=== PATIENT | female | born 1945 | race Caucasian/White ===

== ENCOUNTER 2018-05-28 14:00 | Outpatient (CLI) | payer MEDICARE, OTHER, SELFPAY ==
[2018-05-28 15:03] LABS: C-Reactive Protein 0.84 mg/dL (0.0-0.3)
[2018-05-28 15:04] LABS: ESR 22 MM/HR (0-30)
== END 2018-05-28 14:01 ==
PROVIDERS: PCP Family Medicine; Visit Provider Internal Medicine
DX: M35.3 Polymyalgia rheumatica (principal)
CPT/HCPCS: 36415; 85652; 86140

== ENCOUNTER → 2018-07-28 09:14 | Outpatient (BNVA) | payer MEDICARE, OTHER, SELFPAY | PROVIDERS: PCP Student in an Organized Health Care Education/Training Program; Referring Provider Student in an Organized Health Care Education/Training Program; Visit Provider Student in an Organized Health Care Education/Training Program | DX: M75.82 Other shoulder lesions, left shoulder (principal) | CPT/HCPCS: 99213 ==

== ENCOUNTER 2018-11-19 09:58 | Outpatient (CLI) | payer MEDICARE, OTHER, SELFPAY ==
[2018-11-19 10:36] LABS: Abs Immature Grans 0.01 k/cumm (0.0-0.09); Absolute Basophil Count 0.04 k/cumm (0.0-0.2); Absolute Lymphocyte Count 1.72 k/cumm (1.2-3.4); Absolute Monocyte Count 0.49 k/cumm (0.11-0.7); Absolute Neutrophil Count 3.78 k/cumm (1.2-6.7); Basophils % 0.6; Eosinophils % 3.2; HCT 38.3 % (36.0-46.0); HGB 12.5 g/dL (12.0-15.5); Immature Grans % 0.2; Lymphocytes % 27.6; Mean Corp. HGB Concentration 32.6 g/dL (32.0-36.0); Mean Corpuscular Hemoglobin 30.6 pg (27.0-33.0); Mean Corpuscular Volume 93.9 fL (80-95); Mean Platelet Volume 10.8 fL (8.0-11.0); Monocytes % 7.9; Neutrophils % 60.5; Platelet Count 194 x1000/uL (130-400); RBC 4.08 m/cumm (4.00-5.20); RBC Distribution Width 13.2 % (11.7-14.6); White Blood Cell Count 6.24 k/cumm (4.4-10.8)
[2018-11-19 11:05] LABS: ALT 22 U/L (12-78); AST 14 U/L (15-37); Albumin 3.5 g/dL (3.4-5.0); Alkaline Phosphatase 66 U/L (46-116); Anion Gap 8.9 mmol/L (3-11); BUN 18 mg/dL (7-18); Bilirubin, Total 0.4 mg/dL (0.2-1.0); CO2 27.1 mmol/L (21.0-32.0); CREATININE 0.96 mg/dL (0.55-1.02); Calcium 8.8 mg/dL (8.5-10.1); Chloride 106 mmol/L (98-107); Cholesterol 192 mg/dL (50-200); Estimated GFR 57.13 (mL/min/1.73m2); Glucose 92 mg/dL (70-100); HDL Cholesterol 62 mg/dL (40-60); LDL CHOLESTEROL 106 mg/dL (<100); Magnesium 1.8 mg/dL (1.8-2.4); Potassium 4.4 mmol/L (3.5-5.1); Sodium 142 mmol/L (136-145); Total Protein 6.4 g/dL (6.4-8.2); Triglyceride 160 mg/dL (30-150)
[2018-11-22 08:30] LABS: Vitamin D 25 Total 35.8 ng/ml (30-100)
== END 2018-11-19 10:18 ==
PROVIDERS: PCP Student in an Organized Health Care Education/Training Program; Visit Provider Student in an Organized Health Care Education/Training Program
DX: I48.0 Paroxysmal atrial fibrillation (principal); R89.9 Unspecified abnormal finding in specimens from other organs, systems and tissues; R03.0 Elevated blood-pressure reading, without diagnosis of hypertension; M89.8X9 Other specified disorders of bone, unspecified site; Z79.01 Long term (current) use of anticoagulants; E78.89 Other lipoprotein metabolism disorders; Z13.6 Encounter for screening for cardiovascular disorders
CPT/HCPCS: 36415; 80053; 80061; 82306; 83721; 85027; 83735; 85025

== ENCOUNTER 2018-12-01 02:06 | Outpatient (CLI) | payer MEDICARE, OTHER, SELFPAY ==
--- NOTE | 2018-12-22 18:45 | ZIOP_ITS ---
ZIO PATCH REPORT DATE OF READING: December 22, 2018 STUDY INDICATION: Paroxysmal atrial fibrillation. REQUESTING PROVIDER: Roberta Jansen D.O. FINDINGS: The patient was monitored for 14 days. The predominant underlying rhythm was sinus rhythm. Average heart rate in sinus rhythm 69 beats per minutes, range 41-143 beats per minute. There was rare ectopy, less than 1% PACs and less than 1% PVCs. There were 31 episodes of supraventricular tachycardia, average heart rate 122 beats per minutes, range 77-169 beats per minute. The longest episode lasted 14 beats with an average heart rate of 110 beats per minute. There was nocturnal sinus bradycardia. There was no higher degree heart block. There were no pauses greater than 3 seconds. There were no patient events. FINAL INTERPRETATION: Minor atrial arrhythmias, asymptomatic.
== END 2018-12-01 02:26 ==
PROVIDERS: PCP Student in an Organized Health Care Education/Training Program; Visit Provider Student in an Organized Health Care Education/Training Program
DX: I48.0 Paroxysmal atrial fibrillation (principal); I47.1 Supraventricular tachycardia
CPT/HCPCS: 93225

== ENCOUNTER 2019-06-15 00:53 | Outpatient (CLI) | payer MEDICARE, OTHER, SELFPAY ==
--- NOTE | 2019-06-15 09:10 | DI.RAD_ITS ---
SYMPTOM/DIAGNOSIS: RT FOOT SENSATION OF FOREIGN BODY BETWEEN TOES, FOOT DEFORMITY, M21.961, LT FOOT SWELLING LEFT FOOT: Three views were obtained. There are mild degenerative changes of the mid foot joints and IP joints. No other significant bony or soft tissue abnormality is seen. RIGHT FOOT: Three views were obtained. There are moderate degenerative changes of the first MTP joint and mild degenerative changes of the IP joints and joints of the mid foot. There is an osteophyte at the site of attachment of the plantar fascia on the calcaneus. No other significant bony abnormality is seen.
== END 2019-06-15 01:13 ==
PROVIDERS: PCP Student in an Organized Health Care Education/Training Program; Visit Provider Student in an Organized Health Care Education/Training Program
DX: M21.961 Unspecified acquired deformity of right lower leg (principal); M21.962 Unspecified acquired deformity of left lower leg; M19.072 Primary osteoarthritis, left ankle and foot; M19.071 Primary osteoarthritis, right ankle and foot; M25.771 Osteophyte, right ankle; M79.89 Other specified soft tissue disorders
CPT/HCPCS: 73630

== ENCOUNTER 2019-09-21 09:25 | Outpatient (CLI) | payer MEDICARE, OTHER, SELFPAY ==
[2019-09-21 10:30] LABS: Abs Immature Grans 0.02 k/cumm (0.0-0.09); Absolute Basophil Count 0.04 k/cumm (0.0-0.2); Absolute Eosinophil Count 0.22 k/cumm (0.0-0.7); Absolute Lymphocyte Count 1.82 k/cumm (1.2-3.4); Absolute Monocyte Count 0.56 k/cumm (0.11-0.7); Absolute Neutrophil Count 3.83 k/cumm (1.2-6.7); Basophils % 0.6; Eosinophils % 3.4; HCT 39.5 % (36.0-46.0); HGB 12.8 g/dL (12.0-15.5); Immature Grans % 0.3; Mean Corp. HGB Concentration 32.4 g/dL (32.0-36.0); Mean Corpuscular Hemoglobin 30.4 pg (27.0-33.0); Mean Corpuscular Volume 93.8 fL (80-95); Mean Platelet Volume 10.8 fL (8.0-11.0); Monocytes % 8.6; Neutrophils % 59.1; Platelet Count 208 x1000/uL (130-400); RBC 4.21 m/cumm (4.00-5.20); RBC Distribution Width 13.2 % (11.7-14.6); White Blood Cell Count 6.49 k/cumm (4.4-10.8)
[2019-09-21 10:32] LABS: Bilirubin Negative (Negative); Blood Negative (Negative); Clarity Clear (Clear); Glucose Negative (Negative); Ketones Negative (Negative); Leukocyte Esterase Negative (Negative); Nitrite Negative (Negative); Specific Gravity 1.015 (1.005-1.025); Urobilinogen 0.2 EU/dL (Up TO 0.2); pH 5.5 (5-8)
[2019-09-21 11:01] LABS: ALT 22 U/L (14-59); AST 16 U/L (15-37); Albumin 3.7 g/dL (3.4-5.0); Alkaline Phosphatase 57 U/L (46-116); Anion Gap 6.3 mmol/L (3-11); BUN 21 mg/dL (7-18); Bilirubin, Total 0.4 mg/dL (0.2-1.0); C-Reactive Protein 0.54 mg/dL (0.0-0.3); CO2 30.7 mmol/L (21.0-32.0); CREATININE 1.09 mg/dL (0.55-1.02); Chloride 106 mmol/L (98-107); Glucose 98 mg/dL (74-106); Potassium 5.1 mmol/L (3.5-5.1); Sodium 143 mmol/L (136-145); Total Protein 6.4 g/dL (6.4-8.2)
== END 2019-09-21 09:45 ==
PROVIDERS: PCP Student in an Organized Health Care Education/Training Program; Visit Provider Internal Medicine
DX: M35.9 Systemic involvement of connective tissue, unspecified (principal); R82.79 Other abnormal findings on microbiological examination of urine
CPT/HCPCS: 36415; 80053; 81003; 85025; 86140; 87086

== ENCOUNTER 2019-10-17 10:07 | Outpatient (CLI) | payer MEDICARE, OTHER, SELFPAY ==
[2019-10-17 11:35] LABS: TSH (W/Ref FT4) 1.55 uIU/mL (0.36-3.74)
== END 2019-10-17 10:27 ==
PROVIDERS: PCP Student in an Organized Health Care Education/Training Program; Visit Provider Student in an Organized Health Care Education/Training Program
DX: F32.9 Major depressive disorder, single episode, unspecified (principal); R23.2 Flushing; T50.905A Adverse effect of unspecified drugs, medicaments and biological substances, initial encounter
CPT/HCPCS: 36415; 84443

== ENCOUNTER 2020-05-28 01:16 | Outpatient (CLI) | payer MEDICARE, OTHER, SELFPAY ==
--- NOTE | 2020-05-28 06:53 | DI.MAMMO_ITS ---
EXAM: MAMMO SCREENING CLINICAL HISTORY: screening,Z12.39 TECHNIQUE: Mammograms were interpreted according to the usual protocol including computer analysis w [employer] CAD system, tomosynthesis and C-view imaging. COMPARISON: FINDINGS: Breasts are of moderate density with fairly symmetrical distribution of tissue. No dominant mass or clumped microcalcification is identified in either breast. The current examination is compared with previous examinations including November 2016 and there is question of increased prominence of an are a of asymmetric density with questionable architectural distortion in the upper outer quadrant of the left breast on CC and MLO projections. Additional mammographic views of this area are requested to include CC and MLO spot compression views. IMPRESSION: Additional mammographic views of the left breast requested as described above. Breast ultrasound sh ould be obtained as well. Category: BI-RADS Cat 0 - Assessment Incomplete: Need additional imaging evaluation Breast Density - Category B - Scattered areas of fibroglandular density
== END 2020-05-28 01:36 ==
PROVIDERS: PCP Student in an Organized Health Care Education/Training Program; Visit Provider Student in an Organized Health Care Education/Training Program
DX: Z12.31 Encounter for screening mammogram for malignant neoplasm of breast (principal); R92.2 Inconclusive mammogram; R92.8 Other abnormal and inconclusive findings on diagnostic imaging of breast
CPT/HCPCS: 77063; 77067

== ENCOUNTER 2020-05-31 01:17 | Outpatient (CLI) | payer MEDICARE, OTHER, SELFPAY ==
--- NOTE | 2020-05-31 10:35 | DI.MAMMO_ITS ---
EXAM: MG MAMMO SCREEN CALL BACK UNI CLINICAL HISTORY: F/U MAMMO, ASYMMETRIC DENSITY LT BREAST,? ARCHITECTURAL DISTORTION TECHNIQUE: Mammograms were interpreted according to the usual protocol including computer analysis w ith CAD system, tomosynthesis and C-view imaging. COMPARISON: FINDINGS: Additional mammographic views of the left breast and left breast ultrasound were obtained to evaluate questionable area of asymmetric density with possible architectural distortion the upper outer quadr ant of the left breast seen on recent mammogram. Additional mammographic views fail to show a discre te mass or convincing architectural distortion. Breast ultrasound shows no evidence of a mass or cys t in this area. IMPRESSION: No specific evidence of malignancy at this time. Follow-up unilateral left breast mammogram requeste d in 6 months. BI-RADS Cat 3 - 6 month - Probably Benign Finding: Recommend follow-up mammography in 6 months: Breast Density - Category C - Heterogeneously dense:
== END 2020-05-31 01:37 ==
PROVIDERS: PCP Student in an Organized Health Care Education/Training Program; Visit Provider Student in an Organized Health Care Education/Training Program
DX: Z12.31 Encounter for screening mammogram for malignant neoplasm of breast (principal); R92.8 Other abnormal and inconclusive findings on diagnostic imaging of breast; R92.2 Inconclusive mammogram
CPT/HCPCS: 76642; 77063; 77067

== ENCOUNTER 2020-12-13 01:01 | Outpatient (CLI) | payer MEDICARE, OTHER, SELFPAY ==
--- NOTE | 2020-12-13 08:00 | DI.MAMMO_ITS ---
EXAM: MG MAMMO DIAGNOSTIC UNI CLINICAL HISTORY: follow up left breast abn (11/2020),6 MO F/U,R92.8. TECHNIQUE: Unilateral left breast CC and MLO mammographic images were obtained with 3D Tomosynthesis technique and utilizing computer aided detection (CAD). COMPARISON: Prior mammograms dating back to 2011, the most recent being May 2020. Ultrasound of May 2020 was also reviewed FINDINGS: Previously described asymmetric tissue in the upper-outer quadrant of the left breast remains unchang ed. Also no malignant-appearing microcalcification groups in the left breast. IMPRESSION: Stable benign appearing left breast findings. No radiographic evidence of malignancy in left breast. Appropriate follow-up is to keep this patient yearly mammogram schedule, this implying the next [facility] mammogram would be in May 2021, with earlier imaging if a self detected breast change is note d.. BI-RADS Category 2 - Benign Findings Breast Density - Category B - Scattered areas of fibroglandular density Breast density Category C or D implies that the patient has dense breast tissue. Dense breast tissue can make it harder to find cancer on a mammogram. Dense breast tissue is also associated with an incr eased risk of breast cancer. This information about the result of the mammogram report was provided to the patient to raise their awareness. Use this report when you speak with the patient about their risks for breast cancer, which includes their family history. At that time, you may recommend additional screening tests (Ultrasoun d or MRI) as these tests may add significant information. A negative radiographic report should not delay biopsy if a dominant or clinically suspicious mass is present. Up to ten percent of cancers are not identified on mammography. A negative report may reinforce clinical impression. Adenosis and dense breasts may obscure an underlying neoplasm. False positive reports average 6 to 10%. Patient will receive a letter notifying them of these results.
== END 2020-12-13 01:02 ==
LOC: DI 01:02
PROVIDERS: PCP Student in an Organized Health Care Education/Training Program; Visit Provider Student in an Organized Health Care Education/Training Program
DX: Z12.31 Encounter for screening mammogram for malignant neoplasm of breast (principal); R92.8 Other abnormal and inconclusive findings on diagnostic imaging of breast; N64.59 Other signs and symptoms in breast
CPT/HCPCS: 77061; 77065; G0279

== ENCOUNTER 2021-01-28 13:06 | Emergency (ER) | payer MEDICARE, SELFPAY ==
[2021-01-28 13:23] VITALS: BP 131/71; PULSE 82; RESP 16; TEMP 36.7; O2SAT 99
--- NOTE | 2021-01-28 16:22 | ED.GENADUL_ITS ---
Discharge Plan Disposition Patient Disposition: HOME Condition: Stable Discharge Details Clinical Impression: Laceration of right hand Primary Care Provider: Roberta Jansen ED Provider: Ilene Nails Home Meds and New Rx's Prescriptions: Continued ibuprofen 200 mg tablet 200 mg PO TID-QID PRNRF: 0 aspirin 81 mg tablet,delayed release (DR/EC) 81 mg PO DAILY RF: 0 magnesium 250 mg tablet 500 mg PO DAILY RF: 0 baclofen 10 mg tablet 10 mg PO BID PRN (Reason: muscle spasm) Qty: 30 RF: 0 biotin 1,000 mcg tablet,chewable 1,000 mcg PO DAILY RF: 0 valacyclovir [Valtrex] 500 mg tablet 500 mg PO DAILY Qty: 90 RF: 2 docosanol [Abreva] 10 % cream 1 applic topical .COMPLEX PRN (Reason: cold sore) Qty: 2 RF: 2 dextroamphetamine-amphetamine [Adderall] 5 mg tablet 5 mg PO BID MDD 10 Qty: 56 RF: 0 Hold Instructions: Home Medication placed on hold at Doctor's office lorazepam 0.5 mg tablet 0.5 mg PO PRN MDD 2 Qty: 10 RF: 1 diazepam [Valium] 5 mg tablet 5 mg PO QHS PRN (Reason: muscle spasm ) Qty: 10 RF: 0 docusate sodium [Stool Softener] 100 mg capsule 200 mg PO QHS PRNRF: 0 clotrimazole 45 GM cream 45 gm Topical PRN RF: 0 betamethasone dipropionate 60 ML lotion 60 ml Topical PRN RF: 0 loratadine 10 MG tablet 10 mg PO BID RF: 0 calcium carbonate-vitamin D3 [Calcium 500 + D] 1 EACH tablet 1 ea PO BID RF: 0 bupropion HCl 150 mg tablet sustained-release 12 hr 150 mg PO QAM Qty: 90 RF: 3 hydroxychloroquine 200 MG tablet 200 mg PO BID Qty: 180 RF: 3 Discharge Instructions Instructions: Laceration (ED) Additional Instructions: Please return immediately to the emergency department if you develop any new or worsening symptoms, if your condition does not improve as expected, or if you become otherwise concerned. It is extremely important that you attend your scheduled appointment for primary care doctor on 01/31/2021 as planned in follow- up for this visit. If you are unable to follow-up with his primary care doctor, please return here to the emergency department in 2 to 3 days for wound check. You will need to have your stitches removed in 10 days as we discussed. Referrals: Roberta Jansen DO [Primary Care Provider] - Discharge Data Discharge Date/Time-TO BE ENTERED AT DEPARTURE: 01/28/21 15:01 Medical Decision Making Ruby Marcum is a 75-year-old woman who presented to the emergency department for laceration to right hand sustained from cat scratch. On exam distal digit/finger is neurovascularly intact. Exam/history is not consistent with bony injury, severe contamination, infection. Plan for laceration repair, outpatient follow-up. Wound irrigated copiously under pressure. Laceration repaired, please see procedure note. I had a lengthy discussion with Patient regarding return to emergency department precautions, home care, and importance of outpatient follow-up. Pt verbalizes understanding of the plan and is amenable. Patient discharged to home with clear plan for outpatient follow-up. All questions were answered. Disposition decision was made weighing the risks and benefits of hospitalization versus outpatient treatment, the risk for further decompensation, and the patient's wishes. Medical Records Medical records reviewed: Yes I reviewed the patient's medical records. HPI General Mode of arrival: ambulatory . Date/Time Provider Initiated Documentation: 01/28/21 13:17 . Limitations to Documentation: no limitations . Information obtained by: patient, RN notes reviewed and old records reviewed . HPI Narrative: Ruby Marcum is a 75-year-old woman with history of polymyalgia rheumatica, paroxysmal atrial fibrillation, hypertension presenting to emergency department with laceration from cat scratch to her right hand. Patient states that the cat is her own and is fully vaccinated. Patient reports cat scratch the hand with only injury. No cat bite, no other trauma. She denies any pain other than pain at the site of the wound. Patient reports that pain feels superficial, denies any deep hand pain. Patient states that she is able to move all of her fingers and her wrist without pain. Previously in her usual state of health, no other pain, no fevers, no vomiting, no numbness, no weakness, no rash. Related Data Home Medications Medication Instructions Recorded Confirmed hydroxychloroquine 200 mg PO BID #180 11/15/16 01/31/21 betamethasone dipropionate 60 ml TOPICAL PRN script 06/23/18 01/31/21 calcium carbonate-vitamin D3 1 ea PO BID 06/23/18 01/31/21 [Calcium 500 + D] clotrimazole 45 gm TOPICAL PRN script 06/23/18 01/31/21 loratadine 10 mg PO BID 06/23/18 01/31/21 lorazepam 0.5 mg tablet 0.5 mg PO PRN #10 tab MDD 2 07/16/18 01/31/21 aspirin 81 mg tablet,delayed 81 mg PO DAILY 11/26/18 01/31/21 release ibuprofen 200 mg tablet 200 mg PO TID-QID PRN 11/26/18 01/31/21 diazepam 5 mg tablet 5 mg PO QHS PRN #10 tab 02/18/19 01/31/21 magnesium 250 mg tablet 500 mg PO DAILY tab 06/01/19 01/31/21 docusate sodium 100 mg capsule 200 mg PO QHS PRN cap 08/24/20 01/31/21 baclofen 10 mg tablet 10 mg PO BID PRN #30 tab 08/25/20 01/31/21 bupropion HCl 150 mg tablet,12 hr 150 mg PO QAM #90 tab 11/29/20 01/31/21 sustained-release biotin 1,000 mcg chewable tablet 1,000 mcg PO DAILY 12/20/20 01/31/21 docosanol 10 % topical cream 1 applic TOPICAL .COMPLEX PRN #2 g 12/20/20 01/31/21 valacyclovir 500 mg tablet 500 mg PO DAILY #90 tab 12/20/20 01/31/21 dextroamphetamine-amphetamine 5 mg 5 mg PO BID #56 tab MDD 10 12/23/20 01/31/21 tablet Previous Rx's Medication Instructions Recorded lorazepam 0.5 mg tablet 0.5 mg PO PRN #10 tab MDD 2 07/16/18 diazepam 5 mg tablet 5 mg PO QHS PRN #10 tab 02/18/19 baclofen 10 mg tablet 10 mg PO BID PRN #30 tab 08/25/20 bupropion HCl 150 mg tablet,12 hr 150 mg PO QAM #90 tab 11/29/20 sustained-release docosanol 10 % topical cream 1 applic TOPICAL .COMPLEX PRN #2 g 12/20/20 valacyclovir 500 mg tablet 500 mg PO DAILY #90 tab 12/20/20 dextroamphetamine-amphetamine 5 mg 5 mg PO BID #56 tab MDD 10 12/23/20 tablet Allergies Allergy/AdvReac Type Severity Reaction Status Date / Time Sulfa (Sulfonamide Allergy Severe severe Verified 01/31/21 15:46 Antibiotics) hives General Stated Complaint: Laceration BRADY: 4 Review of Systems Narrative: Constitutional: denies fevers Eyes: denies eye pain ENT: denies ear pain, dental pain, sore throat Cardiovascular: denies chest pain Respiratory: denies SOB, cough GI: denies abdominal pain, vomiting, diarrhea : denies flank pain MSK: denies back pain, neck pain, arthralgias, myalgias Skin: denies rash, reports skin wound Neuro: denies headaches, numbness, weakness [facility] Medical History Acute vestibular neuritis Working Dx .. steroid spray, meclizine, antihist. Lorzpm. Pt does not tolerate steroids well. 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 resolving with Valacyclovir) Recurrent depressive disorder, currently in remission Bupropion helping depression remit. Surgical History Arthroscopy l knee Cholecystectomy Family History Self Adopted Has reconnected with biological parents and siblings enough to know that Alzheimers runs on maternal side. 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 during COVID Duration: 30-45 minutes/day Frequency: 1-2 times per week Seatbelt use: always Working smoke detector in home: Yes Fire extinguisher in home: Yes Carbon monox detector in home: Yes Firearms in home: No Do you feel safe at home: Yes Do you feel safe in your relationship?: Yes Exam Narrative Exam Narrative: Constitutional: well and [id number], pleasant, conversing normally HENT: head atraumatic/normocephalic/normal inspection, mucous membranes moist Eyes: conjunctiva normal, sclera normal, pupils 3mm b/l Neck: no stridor, normal ROM, trachea midline Resp: normal work of breathing, speaking in full sentences Cardio: normal rate, normal rhythm Skin: warm, dry, normal color, no rash Neuro: alert, not altered, grossly non-focal, normal tone Ext: no edema, right hand with superficial angular laceration to dorsal aspect, approximately 3 cm. No tenderness palpation of the metacarpal bones. Ranges all digits without pain, full range of motion of the wrist without pain. Brisk cap refill and normal sensation of digits 2-5. No other apparent skin wound. Psych: normal mood, normal affect, normal behavior Course Vital Signs Vital signs: Vital Signs Temperature 36.7 C 01/28/21 13:23 Pulse 82 01/28/21 13:23 Respiratory Rate 16 01/28/21 13:23 Blood Pressure 131/71 01/28/21 13:23 Pulse Oximetry 99 01/28/21 13:23 Temperature 36.7 C 01/28/21 13:23 Temperature Source Skin 01/28/21 13:23 Pulse 82 01/28/21 13:23 Respiratory Rate 16 01/28/21 13:23 Respiratory Effort 01/28/21 13:30 Blood Pressure 131/71 01/28/21 13:23 Blood Pressure Position Sitting 04/05/21 13:23 Pulse Oximetry 99 01/28/21 13:23 Oxygen Delivery Method Room Air 01/28/21 13:23 Oxygen Flow Rate 0 01/28/21 13:23 Pain Level 0 01/28/21 13:23 Comment 01/28/21 13:23 Procedures Laceration Laceration 1: Site: hand Side (If applicable): right Size (cm): 3 Description: other (Angular) Depth: simple, single layer Local Anesthetic: Lidocaine 1% Amount of anesthesia used (mL): 5 Pre-repair: wound explored, irrigated extensively and deep structures intact Skin layer closed with: nylon Size (cm): 4-0 Number of sutures: 5 Technique: simple, interrupted
== END 2021-01-28 15:01 | disposition home or self-care (01) ==
PROVIDERS: Emergency Provider Student in an Organized Health Care Education/Training Program; PCP Student in an Organized Health Care Education/Training Program
DX: S61.411A Laceration without foreign body of right hand, initial encounter (principal); W55.03XA Scratched by cat, initial encounter
CPT/HCPCS: 12002; 90471

== ENCOUNTER 2021-02-07 15:43 | Emergency (ER) | payer MEDICARE, SELFPAY ==
[2021-02-07 15:46] VITALS: BP 120/67; PULSE 99; TEMP 36.7; O2SAT 97
--- NOTE | 2021-02-07 16:01 | W.ED.GENAD ---
Discharge Plan Disposition Patient Disposition: HOME Condition: Stable Discharge Details Clinical Impression: Visit for suture removal Primary Care Provider: Roberta Jansen ED Provider: Abiola Adrian Home Meds and New Rx's Prescriptions: No Action ibuprofen 200 mg tablet 200 mg PO TID-QID PRNRF: 0 aspirin 81 mg tablet,delayed release (DR/EC) 81 mg PO DAILY RF: 0 magnesium 250 mg tablet 500 mg PO DAILY RF: 0 baclofen 10 mg tablet 10 mg PO BID PRN (Reason: muscle spasm) Qty: 30 RF: 0 biotin 1,000 mcg tablet,chewable 1,000 mcg PO DAILY RF: 0 valacyclovir [Valtrex] 500 mg tablet 500 mg PO DAILY Qty: 90 RF: 2 docosanol [Abreva] 10 % cream 1 applic topical .COMPLEX PRN (Reason: cold sore) Qty: 2 RF: 2 dextroamphetamine-amphetamine [Adderall] 5 mg tablet 5 mg PO BID MDD 10 Qty: 56 RF: 0 Hold Instructions: Home Medication placed on hold at Doctor's office lorazepam 0.5 mg tablet 0.5 mg PO PRN MDD 2 Qty: 10 RF: 1 diazepam [Valium] 5 mg tablet 5 mg PO QHS PRN (Reason: muscle spasm ) Qty: 10 RF: 0 docusate sodium [Stool Softener] 100 mg capsule 200 mg PO QHS PRNRF: 0 clotrimazole 45 GM cream 45 gm Topical PRN RF: 0 betamethasone dipropionate 60 ML lotion 60 ml Topical PRN RF: 0 loratadine 10 MG tablet 10 mg PO BID RF: 0 calcium carbonate-vitamin D3 [Calcium 500 + D] 1 EACH tablet 1 ea PO BID RF: 0 bupropion HCl 150 mg tablet sustained-release 12 hr 150 mg PO QAM Qty: 90 RF: 3 hydroxychloroquine 200 MG tablet 200 mg PO BID Qty: 180 RF: 3 Discharge Instructions Instructions: Stitches Removal (ED) Additional Instructions: Follow up with primary care provider in 3-5 days. Return to ED sooner if any worsening redness, swelling, or concerns. Increase oral fluids. Please take Tylenol or Ibuprofen with food every 4-6 hours as needed for pain and swelling. Referrals: Roberta Jansen DO [Primary Care Provider] - Discharge Data Discharge Date/Time-TO BE ENTERED AT DEPARTURE: 02/07/21 16:09 Medical Decision Making 75-year-old female presents for suture removal of 5 simple interrupted sutures after a cat bite 10 days ago to the dorsum of left hand, she denies any problems. No evidence of cellulitis has full range of motion. Sutures removed by staffing consultant instructed to apply bacitracin ointment and Band-Aid. Discussed follow-up care with PCP with patient who verbalized understanding. Discuss strict return instructions. HPI General Mode of arrival: ambulatory. Date/Time Provider Initiated Documentation: 02/07/21 15:57. Limitations to Documentation: no limitations. Information obtained by: patient. HPI Narrative: 75-year-old female presents to the ER with chief complaint of suture removal. Had 5 simple interrupted sutures placed approximately 10 days ago to the dorsum of her left hand. She denies any problems. There is no drainage, slight erythema no swelling no tenderness. Will place bacitracin and Band-Aid and instructions to follow-up with PCP if any concerns. Related Data Home Medications Medication Instructions Recorded Confirmed hydroxychloroquine 200 mg PO BID #180 11/15/16 01/31/21 betamethasone dipropionate 60 ml TOPICAL PRN script 06/23/18 01/31/21 calcium carbonate-vitamin D3 1 ea PO BID 06/23/18 01/31/21 [Calcium 500 + D] clotrimazole 45 gm TOPICAL PRN script 06/23/18 01/31/21 loratadine 10 mg PO BID 06/23/18 01/31/21 lorazepam 0.5 mg tablet 0.5 mg PO PRN #10 tab MDD 2 07/16/18 01/31/21 aspirin 81 mg tablet,delayed 81 mg PO DAILY 11/26/18 01/31/21 release ibuprofen 200 mg tablet 200 mg PO TID-QID PRN 11/26/18 01/31/21 diazepam 5 mg tablet 5 mg PO QHS PRN #10 tab 02/18/19 01/31/21 magnesium 250 mg tablet 500 mg PO DAILY tab 06/01/19 01/31/21 docusate sodium 100 mg capsule 200 mg PO QHS PRN cap 08/24/20 01/31/21 baclofen 10 mg tablet 10 mg PO BID PRN #30 tab 08/25/20 01/31/21 bupropion HCl 150 mg tablet,12 hr 150 mg PO QAM #90 tab 11/29/20 01/31/21 sustained-release biotin 1,000 mcg chewable tablet 1,000 mcg PO DAILY 12/20/20 01/31/21 docosanol 10 % topical cream 1 applic TOPICAL .COMPLEX PRN #2 g 12/20/20 01/31/21 valacyclovir 500 mg tablet 500 mg PO DAILY #90 tab 12/20/20 01/31/21 dextroamphetamine-amphetamine 5 mg 5 mg PO BID #56 tab MDD 10 12/23/20 01/31/21 tablet Previous Rx's Medication Instructions Recorded lorazepam 0.5 mg tablet 0.5 mg PO PRN #10 tab MDD 2 07/16/18 diazepam 5 mg tablet 5 mg PO QHS PRN #10 tab 02/18/19 baclofen 10 mg tablet 10 mg PO BID PRN #30 tab 08/25/20 bupropion HCl 150 mg tablet,12 hr 150 mg PO QAM #90 tab 11/29/20 sustained-release docosanol 10 % topical cream 1 applic TOPICAL .COMPLEX PRN #2 g 12/20/20 valacyclovir 500 mg tablet 500 mg PO DAILY #90 tab 12/20/20 dextroamphetamine-amphetamine 5 mg 5 mg PO BID #56 tab MDD 10 12/23/20 tablet Allergies Allergy/AdvReac Type Severity Reaction Status Date / Time Sulfa (Sulfonamide Allergy Severe severe Verified 01/31/21 15:46 Antibiotics) hives General Stated Complaint: SutureRem BRADY: 5 Review of Systems All systems reviewed & are unremarkable except as noted in HPI and below Musculoskeletal Musculoskeletal: Reports as per HPI (Here for suture removal dorsum left hand) [facility] Medical History Acute vestibular neuritis Working Dx .. steroid spray, meclizine, antihist. Lorzpm. Pt does not tolerate steroids well. 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 resolving with Valacyclovir) Recurrent depressive disorder, currently in remission Bupropion helping depression remit. Surgical History Arthroscopy l knee Cholecystectomy Family History Self Adopted Has reconnected with biological parents and siblings enough to know that Alzheimers runs on maternal side. 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 during COVID Duration: 30-45 minutes/day Frequency: 1-2 times per week Seatbelt use: always Working smoke detector in home: Yes Fire extinguisher in home: Yes Carbon monox detector in home: Yes Firearms in home: No Do you feel safe at home: Yes Do you feel safe in your relationship?: Yes Exam Extrem Left upper extremity: hand (Has a well approximated laceration dorsum left hand, mild erythema) Details: laceration Course Vital Signs Vital signs: Vital Signs Temperature 36.7 C 02/07/21 15:46 Pulse 99 H 02/07/21 15:46 Blood Pressure 120/67 02/07/21 15:46 Pulse Oximetry 97 02/07/21 15:46 Temperature 36.7 C 02/07/21 15:46 Temperature Source Temporal Artery Scan 02/07/21 15:46 Pulse 99 H 02/07/21 15:46 Respiratory Effort Non-Labored 02/07/21 15:48 Blood Pressure 120/67 02/07/21 15:46 Blood Pressure Position Sitting 02/07/21 15:46 Pulse Oximetry 97 02/07/21 15:46 Oxygen Delivery Method Room Air 02/07/21 15:46 Oxygen Flow Rate 0 02/07/21 15:46 Pain Level 0 02/07/21 15:48
== END 2021-02-07 16:09 | disposition home or self-care (01) ==
PROVIDERS: Emergency Provider Registered Nurse Emergency; PCP Student in an Organized Health Care Education/Training Program
DX: S61.411D Laceration without foreign body of right hand, subsequent encounter (principal); X58.XXXD Exposure to other specified factors, subsequent encounter

== ENCOUNTER 2021-03-01 15:49 | Emergency (ER) | payer MEDICARE, SELFPAY ==
[2021-03-01 15:54] VITALS: BP 148/90; PULSE 75; RESP 18; TEMP 36.6; O2SAT 99
--- NOTE | 2021-03-01 16:03 | W.ED.GENAD ---
Discharge Plan Disposition Patient Disposition: HOME Condition: Stable Discharge Details Clinical Impression: Laceration of hand, left Primary Care Provider: Roberta Jansen ED Provider: Abiola Adrian Home Meds and New Rx's Prescriptions: No Action ibuprofen 200 mg tablet 200 mg PO TID-QID PRNRF: 0 aspirin 81 mg tablet,delayed release (DR/EC) 81 mg PO DAILY RF: 0 magnesium 250 mg tablet 500 mg PO DAILY RF: 0 baclofen 10 mg tablet 10 mg PO BID PRN (Reason: muscle spasm) Qty: 30 RF: 0 biotin 1,000 mcg tablet,chewable 1,000 mcg PO DAILY RF: 0 valacyclovir [Valtrex] 500 mg tablet 500 mg PO DAILY Qty: 90 RF: 2 docosanol [Abreva] 10 % cream 1 applic topical .COMPLEX PRN (Reason: cold sore) Qty: 2 RF: 2 dextroamphetamine-amphetamine [Adderall] 5 mg tablet 5 mg PO BID MDD 10 Qty: 56 RF: 0 Hold Instructions: Home Medication placed on hold at Doctor's office lorazepam 0.5 mg tablet 0.5 mg PO PRN MDD 2 Qty: 10 RF: 1 diazepam [Valium] 5 mg tablet 5 mg PO QHS PRN (Reason: muscle spasm ) Qty: 10 RF: 0 docusate sodium [Stool Softener] 100 mg capsule 200 mg PO QHS PRNRF: 0 clotrimazole 45 GM cream 45 gm Topical PRN RF: 0 betamethasone dipropionate 60 ML lotion 60 ml Topical PRN RF: 0 loratadine 10 MG tablet 10 mg PO BID RF: 0 calcium carbonate-vitamin D3 [Calcium 500 + D] 1 EACH tablet 1 ea PO BID RF: 0 bupropion HCl 150 mg tablet sustained-release 12 hr 150 mg PO QAM Qty: 90 RF: 3 hydroxychloroquine 200 MG tablet 200 mg PO BID Qty: 180 RF: 3 Discharge Instructions Instructions: Laceration (ED) Additional Instructions: Have sutures removed in 7 to 10 days. 4 sutures were placed. No soaking. Leave alone for 12-24 hours. Wash under running soap and water. Allow to air dry for at least 2 hours a day. Only use bacitracin for first 24 to 48 hours then clean dry dressing. Return to ED if increased reddness, drainage, red streaks, or signs of infection. Xray showed no fracture or foreign body. Lidocaine will wear off in 1-2 hours. Take Tylenol or Ibuprofen every 4-6 hours as needed for pain and swelling. Referrals: Roberta Jansen DO [Primary Care Provider] - Discharge Data Discharge Date/Time-TO BE ENTERED AT DEPARTURE: 03/01/21 17:19 Medical Decision Making <Abiola Adrian - Last Filed: 03/01/21 17:55> Patient is a 75 year old female who presents s/p mechanical fall [employer] . Pt stated she tripped on a pallet and landed on outstretched hands onto concrete. Denies hitting her head, no LOC, Denies wrist pain. She has a star shaped laceration to the jewell surface of her left hand. FROM to fingers including thumb and Full flexion and extension to wrist. Last TDAP was given last week. Imaging obtained to rule out fracture or retained foreign body. Wound was irrigated with sterile normal saline, and betadine. Chlorahexadine surgical scrub also used. LET topical anesthetic applied. Wound infiltrated with 1% Lidocaine with epinephrine, anesthesia achieved. Pt tolerated well. Laceration repaired with 4.0 Nylon sutures # 4 simple interrupted sutures placed. Wound was well approximated. Instructed on home care and discussed strict return instructions and signs of infection. Verbalized understanding. Instructed to have sutures removed in 7 days. <Cole Nails MD - Last Filed: 03/12/21 21:44> Patient seen, examined, and discussed with SHAHANA Adrian. I agree with treatment plan as discussed/documented. HPI <Abiola Adrian - Last Filed: 03/01/21 17:55> General Mode of arrival: ambulatory. Date/Time Provider Initiated Documentation: 03/01/21 15:57. Limitations to Documentation: no limitations. Information obtained by: patient. HPI Narrative: Patient is a 75 year old female who presents s/p mechanical fall [employer] . Pt stated she tripped on a pallet and landed on outstretched hands onto concrete. Denies hitting her head, no LOC, Denies wrist pain. She has a star shaped laceration to the jewell surface of her left hand. FROM to fingers including thumb and Full flexion and extension to wrist. Last TDAP was given last week. Related Data Home Medications Medication Instructions Recorded Confirmed hydroxychloroquine 200 mg PO BID #180 11/15/16 03/08/21 betamethasone dipropionate 60 ml TOPICAL PRN script 06/23/18 03/08/21 calcium carbonate-vitamin D3 1 ea PO BID 06/23/18 03/08/21 [Calcium 500 + D] clotrimazole 45 gm TOPICAL PRN script 06/23/18 03/08/21 loratadine 10 mg PO BID 06/23/18 03/08/21 lorazepam 0.5 mg tablet 0.5 mg PO PRN #10 tab MDD 2 07/16/18 03/08/21 aspirin 81 mg tablet,delayed 81 mg PO DAILY 11/26/18 03/08/21 release ibuprofen 200 mg tablet 200 mg PO TID-QID PRN 11/26/18 03/08/21 diazepam 5 mg tablet 5 mg PO QHS PRN #10 tab 02/18/19 03/08/21 magnesium 250 mg tablet 500 mg PO DAILY tab 06/01/19 03/08/21 docusate sodium 100 mg capsule 200 mg PO QHS PRN cap 08/24/20 03/08/21 baclofen 10 mg tablet 10 mg PO BID PRN #30 tab 08/25/20 03/08/21 bupropion HCl 150 mg tablet,12 hr 150 mg PO QAM #90 tab 11/29/20 03/08/21 sustained-release biotin 1,000 mcg chewable tablet 1,000 mcg PO DAILY 12/20/20 03/08/21 docosanol 10 % topical cream 1 applic TOPICAL .COMPLEX PRN #2 g 12/20/20 03/08/21 valacyclovir 500 mg tablet 500 mg PO DAILY #90 tab 12/20/20 03/08/21 dextroamphetamine-amphetamine 5 mg 5 mg PO BID #56 tab MDD 10 12/23/20 03/08/21 tablet Previous Rx's Medication Instructions Recorded lorazepam 0.5 mg tablet 0.5 mg PO PRN #10 tab MDD 2 07/16/18 diazepam 5 mg tablet 5 mg PO QHS PRN #10 tab 02/18/19 baclofen 10 mg tablet 10 mg PO BID PRN #30 tab 08/25/20 bupropion HCl 150 mg tablet,12 hr 150 mg PO QAM #90 tab 11/29/20 sustained-release docosanol 10 % topical cream 1 applic TOPICAL .COMPLEX PRN #2 g 12/20/20 valacyclovir 500 mg tablet 500 mg PO DAILY #90 tab 12/20/20 dextroamphetamine-amphetamine 5 mg 5 mg PO BID #56 tab MDD 10 12/23/20 tablet Allergies Allergy/AdvReac Type Severity Reaction Status Date / Time Sulfa (Sulfonamide Allergy Severe severe Verified 03/08/21 14:29 Antibiotics) hives General Stated Complaint: Laceration BRADY: 4 Review of Systems <Abiola Adrian - Last Filed: 03/01/21 17:55> All systems reviewed & are unremarkable except as noted in HPI and below Integumentary/Breasts Skin/Breast: Reports wounds (Laceration left palm) PFSH <Abiola Adrian - Last Filed: 03/01/21 17:55> Medical History Acute vestibular neuritis Working Dx .. steroid spray, meclizine, antihist. Lorzpm. Pt does not tolerate steroids well. 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 resolving with Valacyclovir) Recurrent depressive disorder, currently in remission Bupropion helping depression remit. Surgical History Arthroscopy l knee Cholecystectomy Family History Self Adopted Has reconnected with biological parents and siblings enough to know that Alzheimers runs on maternal side. 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 during COVID Duration: 30-45 minutes/day Frequency: 1-2 times per week Seatbelt use: always Working smoke detector in home: Yes Fire extinguisher in home: Yes Carbon monox detector in home: Yes Firearms in home: No Do you feel safe at home: Yes Do you feel safe in your relationship?: Yes Exam <Abiola Adrian [facility] Filed: 03/01/21 17:55> Const General: cooperative, healthy appearing, comfortable, well developed and well groomed Nutritional Appearance: average body habitus Orientation: alert, awake and oriented x3 Resp Effort & Inspection: normal respiratory effort and able to speak in complete sentences Cardio Palpation: normal PMI Rate: regular rate Rhythm: regular rhythm Heart Sounds: S1 normal and S2 normal Back/Spine/Pelvis Cervical Spine: normal cervical lordosis, cervical ROM normal and No cervical spinal tenderness Thoracic/Lumbar Spine: thoracic and lumbar spine normal to inspection Extrem Left upper extremity: hand Details: normal capillary refill, neuromotor exam abnormal, neurosensory exam normal, tendon exam normal, normal ROM of fingers and laceration palm palmar aspect proximal Details: stellate, flap, involving subcutaneous tissue, with motor nerve function intact and with sensation intact; no pulsatile bleeding and no foreign body present Course <Abiola Adrian [facility] Filed: 03/01/21 17:55> Vital Signs Vital signs: Vital Signs Temperature 36.6 C 03/01/21 15:54 Pulse 75 03/01/21 15:54 Respiratory Rate 18 03/01/21 15:54 Blood Pressure 148/90 H 03/01/21 15:54 Pulse Oximetry 99 03/01/21 15:54 Temperature 36.6 C 03/01/21 15:54 Pulse 75 03/01/21 15:54 Respiratory Rate 18 03/01/21 15:54 Respiratory Effort Non-Labored 03/01/21 15:56 Blood Pressure 148/90 H 03/01/21 15:54 Blood Pressure Position Sitting 03/01/21 15:54 Pulse Oximetry 99 03/01/21 15:54 Oxygen Delivery Method Room Air 03/01/21 15:54 Oxygen Flow Rate 0 03/01/21 15:54 Pain Level 6 03/01/21 15:54 Procedures <Abiola Adrian - Last Filed: 03/01/21 17:55> Laceration Laceration 1: Site: hand Side (If applicable): left Size (cm): 3 Description: stellate and flap Depth: simple, single layer Local Anesthetic: Lidocaine 1% and with Epi Amount of anesthesia used (mL): 3 Pre-repair: wound explored, irrigated extensively and deep structures intact Skin layer closed with: nylon Size (cm): 4-0 Number of sutures: 4 Technique: simple, interrupted
--- NOTE | 2021-03-01 16:15 | DI.RAD_ITS ---
Exam(s) XR HAND LT COMPLETE EXAM: XR HAND LT COMPLETE CLINICAL HISTORY: Fall, laceration R/O Fracture, Foreign body. TECHNIQUE: 2D digital imaging was performed. COMPARISON: No exams were available for comparison FINDINGS: There is no evidence of acute fracture nor subluxation. There are few small calcific density seen of f the lateral aspect of the DIP joint of the 3rd-middle finger without soft tissue swelling over this region. No radiopaque foreign body. Corticated density off the ulnar styloid is noted which is not acute in appearance. Bone density otherwise normal. IMPRESSION: No acute fracture evident. DATA REPOSITORY: RADIATION DOSE DELIVERED:
--- NOTE | 2021-03-01 16:37 | DI.VRAD_ITS ---
PROCEDURE INFORMATION: Exam: XR Left Hand Exam date and time: 03/01/2021 4:12 PM Age: 75 years old Clinical indication: Pain; Other: Fall, laceration TECHNIQUE: Imaging protocol: XR Left hand. Views: 3 or more views. COMPARISON: No relevant prior studies available. FINDINGS: Bones/joints: Ulnar styloid ossicle. Decreased bone mineralization. The area of clinical concern is not marked on the film. Soft tissues: No evidence for radiopaque foreign body. IMPRESSION: 1. No evidence for acute bony injury. If clinical symptoms persist recommend followup film in 7-10 days. 2. Additional findings as discussed above. Dictated and Authenticated by: Gloria Velasquez MD. Ordering:LESLY Culver MD
== END 2021-03-01 17:19 | disposition home or self-care (01) ==
PROVIDERS: Emergency Provider Registered Nurse Emergency; PCP Student in an Organized Health Care Education/Training Program
DX: S61.412A Laceration without foreign body of left hand, initial encounter (principal); W01.0XXA Fall on same level from slipping, tripping and stumbling without subsequent striking against object, initial encounter
CPT/HCPCS: 12002; 99283; 73130

== ENCOUNTER 2021-03-08 14:23 | Emergency (ER) | payer MEDICARE, SELFPAY ==
[2021-03-08 14:25] VITALS: BP 145/75; PULSE 83; RESP 20; TEMP 36.7; O2SAT 98
--- NOTE | 2021-03-08 14:34 | ED.GENADUL_ITS ---
Discharge Plan Disposition Patient Disposition: HOME Condition: Stable Discharge Details Clinical Impression: Encounter for removal of sutures Primary Care Provider: Roberta Jansen ED Provider: Abiola Adrian Home Meds and New Rx's Prescriptions: Continued ibuprofen 200 mg tablet 200 mg PO TID-QID PRNRF: 0 aspirin 81 mg tablet,delayed release (DR/EC) 81 mg PO DAILY RF: 0 magnesium 250 mg tablet 500 mg PO DAILY RF: 0 baclofen 10 mg tablet 10 mg PO BID PRN (Reason: muscle spasm) Qty: 30 RF: 0 biotin 1,000 mcg tablet,chewable 1,000 mcg PO DAILY RF: 0 valacyclovir [Valtrex] 500 mg tablet 500 mg PO DAILY Qty: 90 RF: 2 docosanol [Abreva] 10 % cream 1 applic topical .COMPLEX PRN (Reason: cold sore) Qty: 2 RF: 2 dextroamphetamine-amphetamine [Adderall] 5 mg tablet 5 mg PO BID MDD 10 Qty: 56 RF: 0 Hold Instructions: Home Medication placed on hold at Doctor's office lorazepam 0.5 mg tablet 0.5 mg PO PRN MDD 2 Qty: 10 RF: 1 diazepam [Valium] 5 mg tablet 5 mg PO QHS PRN (Reason: muscle spasm ) Qty: 10 RF: 0 docusate sodium [Stool Softener] 100 mg capsule 200 mg PO QHS PRNRF: 0 clotrimazole 45 GM cream 45 gm Topical PRN RF: 0 betamethasone dipropionate 60 ML lotion 60 ml Topical PRN RF: 0 loratadine 10 MG tablet 10 mg PO BID RF: 0 calcium carbonate-vitamin D3 [Calcium 500 + D] 1 EACH tablet 1 ea PO BID RF: 0 bupropion HCl 150 mg tablet sustained-release 12 hr 150 mg PO QAM Qty: 90 RF: 3 hydroxychloroquine 200 MG tablet 200 mg PO BID Qty: 180 RF: 3 Discharge Instructions Instructions: Stitches Removal (ED) Additional Instructions: Keep covered, clean and dry. The wound will continue to heal over the next few days by secondary intention. Return if any opening, signs of infection or c oncerns. Referrals: Roberta Jansen DO [Primary Care Provider] - Medical Decision Making 4 simple interrupted sutures removed by staff electronic warfare officer, patient tolerated well. Wound was well approximated. Discussed home care, verbalized understanding HPI General Mode of arrival: ambulatory . Date/Time Provider Initiated Documentation: 03/08/21 14:24 . Limitations to Documentation: no limitations . Information obtained by: patient and old records reviewed . HPI Narrative: 75-year-old female presents to the ER for suture removal. 4 simple interrupted sutures were placed to the palm of her left hand after a trip and fall 7 days ago. She returns without complaint, no redness no signs of infection no surrounding erythema, there are 4 sutures noted. Patient denies any pain or any concerns. Related Data Home Medications Medication Instructions Recorded Confirmed hydroxychloroquine 200 mg PO BID #180 11/15/16 03/08/21 betamethasone dipropionate 60 ml TOPICAL PRN script 06/23/18 03/08/21 calcium carbonate-vitamin D3 1 ea PO BID 06/23/18 03/08/21 [Calcium 500 + D] clotrimazole 45 gm TOPICAL PRN script 06/23/18 03/08/21 loratadine 10 mg PO BID 06/23/18 03/08/21 lorazepam 0.5 mg tablet 0.5 mg PO PRN #10 tab MDD 2 07/16/18 03/08/21 aspirin 81 mg tablet,delayed 81 mg PO DAILY 11/26/18 03/08/21 release ibuprofen 200 mg tablet 200 mg PO TID-QID PRN 11/26/18 03/08/21 diazepam 5 mg tablet 5 mg PO QHS PRN #10 tab 02/18/19 03/08/21 magnesium 250 mg tablet 500 mg PO DAILY tab 06/01/19 03/08/21 docusate sodium 100 mg capsule 200 mg PO QHS PRN cap 08/24/20 03/08/21 baclofen 10 mg tablet 10 mg PO BID PRN #30 tab 08/25/20 03/08/21 bupropion HCl 150 mg tablet,12 hr 150 mg PO QAM #90 tab 11/29/20 03/08/21 sustained-release biotin 1,000 mcg chewable tablet 1,000 mcg PO DAILY 12/20/20 03/08/21 docosanol 10 % topical cream 1 applic TOPICAL .COMPLEX PRN #2 g 12/20/20 03/08/21 valacyclovir 500 mg tablet 500 mg PO DAILY #90 tab 12/20/20 03/08/21 dextroamphetamine-amphetamine 5 mg 5 mg PO BID #56 tab MDD 10 12/23/20 03/08/21 tablet Previous Rx's Medication Instructions Recorded lorazepam 0.5 mg tablet 0.5 mg PO PRN #10 tab MDD 2 07/16/18 diazepam 5 mg tablet 5 mg PO QHS PRN #10 tab 02/18/19 baclofen 10 mg tablet 10 mg PO BID PRN #30 tab 08/25/20 bupropion HCl 150 mg tablet,12 hr 150 mg PO QAM #90 tab 11/29/20 sustained-release docosanol 10 % topical cream 1 applic TOPICAL .COMPLEX PRN #2 g 12/20/20 valacyclovir 500 mg tablet 500 mg PO DAILY #90 tab 12/20/20 dextroamphetamine-amphetamine 5 mg 5 mg PO BID #56 tab MDD 10 12/23/20 tablet Allergies Allergy/AdvReac Type Severity Reaction Status Date / Time Sulfa (Sulfonamide Allergy Severe severe Verified 03/08/21 14:29 Antibiotics) hives General Stated Complaint: SutureRem BRADY: 5 Review of Systems Integumentary/Breasts Skin/Breast: Reports as per HPI [facility] Medical History Acute vestibular neuritis Working Dx .. steroid spray, meclizine, antihist. Lorzpm. Pt does not tolerate steroids well. 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 resolving with Valacyclovir) Recurrent depressive disorder, currently in remission Bupropion helping depression remit. Surgical History Arthroscopy l knee Cholecystectomy Family History Self Adopted Has reconnected with biological parents and siblings enough to know that Alzheimers runs on maternal side. 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 during COVID Duration: 30-45 minutes/day Frequency: 1-2 times per week Seatbelt use: always Working smoke detector in home: Yes Fire extinguisher in home: Yes Carbon monox detector in home: Yes Firearms in home: No Do you feel safe at home: Yes Do you feel safe in your relationship?: Yes Exam Extrem Left upper extremity: hand (Sutured wound noted to the palm of left hand four sutures noted.) Course Vital Signs Vital signs: Vital Signs Temperature 36.7 C 03/08/21 14:25 Pulse 83 03/08/21 14:25 Respiratory Rate 20 03/08/21 14:25 Blood Pressure 145/75 H 03/08/21 14:25 Pulse Oximetry 98 03/08/21 14:25 Temperature 36.7 C 03/08/21 14:25 Temperature Source Skin 03/08/21 14:25 Pulse 83 03/08/21 14:25 Respiratory Rate 20 03/08/21 14:25 Respiratory Effort Non-Labored 03/08/21 14:28 Blood Pressure 145/75 H 03/08/21 14:25 Blood Pressure Position Sitting 03/08/21 14:25 Pulse Oximetry 98 03/08/21 14:25 Oxygen Delivery Method Room Air 03/08/21 14:25 Oxygen Flow Rate 0 03/08/21 14:25
== END 2021-03-08 14:44 | disposition home or self-care (01) ==
PROVIDERS: Emergency Provider Registered Nurse Emergency; PCP Student in an Organized Health Care Education/Training Program
DX: S61.412D Laceration without foreign body of left hand, subsequent encounter (principal); W18.39XD Other fall on same level, subsequent encounter; Z48.02 Encounter for removal of sutures

== ENCOUNTER 2021-07-02 14:01 | Outpatient (REF) | payer MEDICARE, SELFPAY ==
[2021-07-02 19:19] LABS: ALT 25 U/L (14-59); AST 18 U/L (15-37); Albumin 3.8 g/dL (3.4-5.0); Alkaline Phosphatase 73 U/L (46-116); Anion Gap 6.9 mmol/L (3-11); BUN 20 mg/dL (7-18); Bilirubin, Total 0.3 mg/dL (0.2-1.0); CO2 29.1 mmol/L (21.0-32.0); CREATININE 1.1 mg/dL (0.55-1.02); Calculated LDL 109 mg/dL (<100); Chloride 108 mmol/L (98-107); Cholesterol 188 mg/dL (<200); Estimated GFR 48.55 (mL/min/1.73m2); Glucose 88 mg/dL (74-106); HDL Cholesterol 62 mg/dL (40-60); Potassium 4.6 mmol/L (3.5-5.1); Sodium 144 mmol/L (136-145); TSH (W/Ref FT4) 1.77 uIU/mL (0.36-3.74); Total Protein 6.5 g/dL (6.4-8.2); Triglyceride 87 mg/dL (<150)
== END 2021-07-02 14:02 | disposition home or self-care (01) ==
LOC: NCHCN 14:01
PROVIDERS: Visit Provider Physician Assistant Medical
DX: L65.9 Nonscarring hair loss, unspecified (principal); E78.5 Hyperlipidemia, unspecified; Z00.00 Encounter for general adult medical examination without abnormal findings
CPT/HCPCS: 80053; 80061; 84443

== ENCOUNTER 2021-07-18 00:30 | Outpatient (CLI) | payer MEDICARE, SELFPAY ==
--- NOTE | 2021-07-18 | DI.MAMMO_ITS ---
Exam(s) MAMMO SCREENING EXAM: MAMMO SCREENING CLINICAL HISTORY: SCREENING, Z12.31. TECHNIQUE: Bilateral full field digital CC and MLO mammographic images were obtained with 3D tomosyn thesis and utilizing computer aided detection (CAD). COMPARISON: Prior mammograms dating back to 2011, the most recent being May 2020 and November. FINDINGS: No new significant radiograph findings in left breast. The previously described area of possible con cern appear stable. However in the right breast there are 2 asymmetric densities. For sleep, there is a round noncalcifi ed nodule measuring 3 millimeters located 6 cm in from the nipple on the CC view. Secondly, is asymmetric density slightly lateral of center measuring 6 x 4 millimeters located approx imately 7 cm in from the nipple, also more evident than previous. Spot compressions of these regions recommended There is no significant architectural distortion nor skin thickening-retraction. IMPRESSION: No radiographic evidence of malignancy in left breast. Right breast findings as described above. Two areas of spot compression views recommended. Also rig ht breast ultrasound BI-RADS Category 0 - Assessment Incomplete: Need additional imaging evaluation Breast Density - Category B - Scattered areas of fibroglandular density Breast density Category C or D implies that the patient has dense breast tissue. Dense breast tissue can make it harder to find cancer on a mammogram. Dense breast tissue is also associated with an incr eased risk of breast cancer. This information about the result of the mammogram report was provided to the patient to raise their awareness. Use this report when you speak with the patient about their risks for breast cancer, which includes their family history. At that time, you may recommend additional screening tests (Ultrasoun d or MRI) as these tests may add significant information. A negative radiographic report should not delay biopsy if a dominant or clinically suspicious mass is present. Up to ten percent of cancers are not identified on mammography. A negative report may reinforce clinical impression. Adenosis and dense breasts may obscure an underlying neoplasm. False positive reports average 6 to 10%. Patient will receive a letter notifying them of these results.
== END 2021-07-18 00:50 ==
PROVIDERS: PCP Physician Assistant Medical; Visit Provider Physician Assistant Medical
DX: Z12.31 Encounter for screening mammogram for malignant neoplasm of breast (principal); R92.8 Other abnormal and inconclusive findings on diagnostic imaging of breast
CPT/HCPCS: 77063; 77067

== ENCOUNTER 2021-08-06 01:15 | Outpatient (CLI) | payer MEDICARE, SELFPAY ==
--- NOTE | 2021-08-06 | DI.US_ITS ---
Exam(s) US BREAST RT COMPLETE EXAM: US BREAST RT COMPLETE CLINICAL HISTORY: F/U MAMMO, 2 ASYMMETRIC DENSITIES,R92.8. TECHNIQUE: Complete ultrasound of the right breast was performed including all 4 quadrants, the retr oareolar region, and the ipsilateral axilla. COMPARISON: Prior mammograms were reviewed. Today's spot compression right breast view was reviewed FINDINGS: At 4 o'clock position there is a 4 x 3 millimeter finding which has appearance of a hemorrhagic micro cyst and most probably corresponds to the new finding at this location seen on the mammogram. The only other focal finding on ultrasound is a 3 millimeter benign-appearing micro cyst at 7 o'clock position IMPRESSION: Benign-appearing ultrasound findings as described above. The 4 millimeter hemorrhagic microcyst appe ars to correspond to the new finding on the mammogram. Appropriate follow-up is repeat right breast imaging in 6 months to include repeat right breast mammo gram and right breast ultrasound.. BI-RADS Category 3 - 6 month - Probably Benign Finding: Recommend follow-up mammography in 6 months Breast Density - Category B - Scattered areas of fibroglandular density Breast density Category C or D implies that the patient has dense breast tissue. Dense breast tissue can make it harder to find cancer on a mammogram. Dense breast tissue is also associated with an incr eased risk of breast cancer. This information about the result of the mammogram report was provided to the patient to raise their awareness. Use this report when you speak with the patient about their risks for breast cancer, which includes their family history. At that time, you may recommend additional screening tests (Ultrasoun d or MRI) as these tests may add significant information. A negative radiographic report should not delay biopsy if a dominant or clinically suspicious mass is present. Up to ten percent of cancers are not identified on mammography. A negative report may reinforce clinical impression. Adenosis and dense breasts may obscure an underlying neoplasm. False positive reports average 6 to 10%. Patient will receive a letter notifying them of these results.
--- NOTE | 2021-08-06 | DI.MAMMO_ITS ---
Exam(s) MAMMO SCREEN CALL BACK UNI EXAM: MAMMO SCREEN CALL BACK UNI-RIGHT CLINICAL HISTORY: F/U MAMMO, 2 ASYMMETRIC DENSITIES,NODULE AND ASYMMETRIC DENSITY,R92.8. TECHNIQUE: Unilateral spot mammographic images obtained with 3D tomosynthesisand utilizing computer aided detection (CAD). . COMPARISON: Prior mammograms were reviewed. This additional imaging was performed due to findings described on the recent screening mammogram of 07/18/2021. FINDINGS: Additional mammographic views performed todayreveals the round nodule to persist other finding appear s stable Ultrasound performed today reveals 4 millimeter hemorrhagic microcyst corresponding to the finding on the mammogram. See separate ultrasound report. IMPRESSION: Benign-appearing findings. Appropriate follow-up is repeat right breast imaging in 6 months. The patient was informed of these findings and recommendations prior to leaving the department today. BI-RADS Category 3 - 6 month - Probably Benign Finding: Recommend follow-up mammography in 6 months Breast Density - Category B - Scattered areas of fibroglandular density Breast density Category C or D implies that the patient has dense breast tissue. Dense breast tissue can make it harder to find cancer on a mammogram. Dense breast tissue is also associated with an incr eased risk of breast cancer. This information about the result of the mammogram report was provided to the patient to raise their awareness. Use this report when you speak with the patient about their risks for breast cancer, which includes their family history. At that time, you may recommend additional screening tests (Ultrasoun d or MRI) as these tests may add significant information. A negative radiographic report should not delay biopsy if a dominant or clinically suspicious mass is present. Up to ten percent of cancers are not identified on mammography. A negative report may reinforce clinical impression. Adenosis and dense breasts may obscure an underlying neoplasm. False positive reports average 6 to 10%. Patient will receive a letter notifying them of these results.
== END 2021-08-06 01:35 ==
PROVIDERS: PCP Physician Assistant Medical; Visit Provider Physician Assistant Medical
DX: R92.8 Other abnormal and inconclusive findings on diagnostic imaging of breast (principal); N60.01 Solitary cyst of right breast
CPT/HCPCS: 76642; 77063; 77067

== ENCOUNTER → 2022-02-25 00:43 | Outpatient (CLI) | payer MEDICARE, SELFPAY | PROVIDERS: PCP Physician Assistant Medical; Visit Provider Physician Assistant Medical ==

== ENCOUNTER 2022-02-26 19:30 | Outpatient (REF) | payer MEDICARE, SELFPAY ==
[2022-02-28 11:10] LABS: COVID-19 RT-PCR UVMMC Result Negative (Negative)
== END 2022-02-26 19:31 | disposition home or self-care (01) ==
LOC: LBN 19:30
PROVIDERS: PCP Physician Assistant Medical; Visit Provider Physician Assistant Medical
DX: Z20.822 Contact with and (suspected) exposure to COVID-19 (principal); R05.8 Other specified cough
CPT/HCPCS: U0003; U0005

== ENCOUNTER 2022-05-26 11:46 | Outpatient (REF) | payer MEDICARE, SELFPAY ==
[2022-05-26 16:25] LABS: Hemoglobin A1C 5.8 % (<5.7)
[2022-05-26 16:30] LABS: Anion Gap 7.5 mmol/L (3-11); BUN 20 mg/dL (7-18); CO2 26.5 mmol/L (21.0-32.0); CREATININE 1.1 mg/dL (0.55-1.02); Calcium 8.9 mg/dL (8.5-10.1); Chloride 106 mmol/L (98-107); Estimated GFR 48.42 (mL/min/1.73m2); Glucose 88 mg/dL (74-106); Potassium 4.3 mmol/L (3.5-5.1); Sodium 140 mmol/L (136-145)
== END 2022-05-26 11:47 | disposition home or self-care (01) ==
LOC: NCHCN 11:46
PROVIDERS: PCP Physician Assistant Medical; Visit Provider Physician Assistant Medical
DX: R79.89 Other specified abnormal findings of blood chemistry (principal)
CPT/HCPCS: 80048; 83036

== ENCOUNTER → 2022-06-13 00:26 | Outpatient (CLI) | payer MEDICARE, SELFPAY ==
--- NOTE | 2022-06-13 | DI.US_ITS ---
Exam(s) US BREAST RT LIMITED MG MAMMO DIAGNOSTIC BI EXAM: MG MAMMO DIAGNOSTIC BI CLINICAL HISTORY: ABNL MAMMO R92.8 RT BREAST TECHNIQUE: Cc and MLO mammogram images were performed according to the usual protocol including computer analysis with CAD system, tomosynthesis and C-view imaging. COMPARISON: 2011 through 2020 FINDINGS: Right mammogram: The right breast is composed of scattered fibroglandular densities, Breast Density c ategory B. Has been interval increase in size of previously noted nodule in the posterior right breast. This ma rgins appear circumscribed. No suspicious microcalcifications are seen. No skin thickening or abnormal axillary lymph nodes are seen. Right breast ultrasound: There is a cyst in the 12 o'clock position 2 cm from the nipple measuring 10 x 4 x 7 millimeters. This is deep in the tissue and appears to correspond to the mammographic abnor mality. IMPRESSION: BI-RADS Category 2 - Negative Mammogram with benign findings. Recommend resume bilateral screening m ammography. Breast Density - Category B, scattered fibroglandular densities. A negative radiographic report should not delay biopsy if a dominant or clinically suspicious mass is present. Up to ten percent of cancers are not identified on mammography. A negative report may reinforce clinical impression. Adenosis and dense breasts may obscure an underlying neoplasm. False positive reports average 6 to 10%. Patient will receive a letter notifying them of these results.
--- OUTSIDE RECORDS SUMMARY | 2022-06-13 00:29 | XMS_ITS | Encounter Summary ---
:1945 Author Organization [facility] [place] [address] Care Team Providers Name Role Phone Radha Will MD Primary Care Provider Encounter Details Date Type Department Care Team Description 08/04/2016 External Results Neurology at [facility] Amador Gan, [facility] [place] [address] Neurology [phone] [place], [place] [phone] (Wo rk) Social History Tobacco Use Types Packs/Day Years Used Date Former Smoker Cigarettes Quit: 1969 Smokeless Tobacco: Never Used Alcohol Use Standard Drinks/Week Comments Yes 0 (1 standard drink = 0.6 oz pure alcoho l) 1 drink/day Alcohol Habits Answer Date Recorded How often do you have a drink containing alcohol? Not asked How many drinks containing alcohol do you have on a typical Not asked day when you are drinking? How often do you have six or more drinks on one occasion? No t asked Comment: 1 drink/day 08/01/2016 Sex Assigned at Date Recorded Female 10/14/2021 12:34 PM EST documented as of this encounter Plan of Treatment Upcoming Encounters Date Type Specialty Care Team Description 08/05/2022 Office Visit Dermatology Bassam Foster MD [facility] [address] [facility] [place], [place] [address] (Wo rk) documented as of this encounter Procedures Procedure Name Priority Date/Time Associated Diagnosis Comme nts EMG SCAN Routine 08/01/2016 documented in this encounter Results Scan Doc: EMG (08/01/2016) Narrative This result has an attachment that is no t available. Amador Gan MD MED[facility] MGR SCAN EXT ORDR/RSLT documented in this encounter Visit Diagnoses Not on filedocumented in this encounter Care Teams Pad Making Machine Operator Relationship Specialty Start Date End Date Radha Will MD PCP - General 01/17/15 09/09/16 NOLAN Alis [address] [place] [address] documented as of this encounter
--- OUTSIDE RECORDS SUMMARY | 2022-06-13 00:29 | XMS_ITS | Encounter Summary ---
:1945 Author Organization [facility] [place] [address] Care Team Providers Name Role Phone Blanca Busch Primary Care Provider Reason for Visit Reason Onset Date Comments Medication Refill 12/17/2021 Encounter Details Date Type Department Care Team Description 12/17/2021 Refill Rheumatology at [place] Andrzej Mobley MD [facility] [place] [address] RHEUMATOLOGY [phone] [place], [place] [address] (Wo rk) Social History Tobacco Use Types Packs/Day Years Used Date Former Smoker Cigarettes Quit: 1969 Smokeless Tobacco: Never Used Alcohol Use Standard Drinks/Week Comments No 0 (1 standard drink = 0.6 oz pure alcoho l) Sex Assigned at Date Recorded Female 10/14/2021 12:34 PM EST documented as of this encounter Miscellaneous Notes Telephone Encounter - Dana Bah LPN - 12/17/2021 2:53 PM EST Requested Prescriptions Pending Prescriptions Disp Refills ??? hydrOXYchloroQUINE (Plaquenil) 200 mg Tablet 60 tablet Sig: Take 1 tablet by mouth daily. Last refill: 05/03/2021 Last office visit: 10/29/2021 documented in this encounter Plan of Treatment Upcoming Encounters Date Type Specialty Care Team Description 08/05/2022 Office Visit Dermatology Bassam Foster MD [facility] [address] [facility]MAT [place], [place] [address] (Wo rk) documented as of this encounter Visit Diagnoses Not on filedocumented in this encounter Care Teams Deckhand Sponge Boat Relationship Specialty Start Date End Date Blanca Busch PA PCP - General Family Medicine 07/04/21 [address] [place] [address] documented as of this encounter
--- OUTSIDE RECORDS SUMMARY | 2022-06-13 00:29 | XMS_ITS | Encounter Summary ---
:1945 Author Organization [facility] [place] [address] Care Team Providers Name Role Phone Radha Will MD Primary Care Provider Reason for Referral Diagnostic Test (Routine) - Closed Specialty Diagnoses / Procedures Referred By Contact Refer red To Contact Radiology Diagnoses Radiculopathy of lumbosacral region Amador Gan MD [facility] Rad Mri Procedures MRI Lumbar Spine wo Contrast (Generic) [facility] [place] [address] [place] [phone] Referral ID Status Reason Start Date Expiration Date Visits V isits Requested Authorized [id number] Closed Specialty 08/01/2016 08/01/2017 1 1 Service Requested Reason for Visit Consultation (Routine) - Closed Specialty Diagnoses / Procedures Referred By Contact Refer red To Contact Neurology Diagnoses dyesthetic patch R lat-thigh, EMG, numbness near R knee Radha Will MD [facility] [place] [place] Neurology 3c NOLAN D [address] [place] [address] [place] [address] [place] [address] Referral ID Status Reason Start Date Expiration Date Visits Requ ested Visits Authorized [id number] Closed 06/06/2016 06/06/2017 1 1 Encounter Details Date Type Department Care Team Description 08/01/2016 Procedure visit [place]rology [place] [facility] [place] Amador Gan Radiculopathy of [facility] MD Fa[address] [place] [address] Neurology [phone] [place] [address] Social History Tobacco Use Types Packs/Day Years [...] PM EST documented as of this encounter Last Filed Vital Signs Vital Sign Reading Time Taken Comments Blood Pressure 114/72 08/01/2016 9:27 AM EDT Pulse 72 08/01/2016 9:27 AM EDT Temperature - - Respiratory Rate - - Oxygen Saturation - - Inhaled Oxygen Concentration - - Weight 76.9 kg (169 lb 9.6 oz) 08/01/2016 9:27 AM EDT Height 154.9 cm (5' 1) 08/01/2016 9:27 AM EDT reported Body Mass Index 32.05 08/01/2016 9:27 AM EDT documented in this encounter Patient Instructions Patient InstructionsAmador Gan MD - 08/01/2016 9:30 AM EDT Most likely this is lumbosacral radiculopathy (a pinched nerve in the back), or else lumbar stenosis. Try gabapentin. Take it at night at first so if it makes you sleepy you can just sleep. Start 1 pillat night (100 mg). If this does not do anything increase it to 2 pills and then 3 pills (300 mg ) atnight. If this is not effective you may need more. Y oucan try 300 mg in the morning and 300 mg at night, and then call me if still not benefit. Schedule an MRI of your back and a fu appointment with me the same day to review the MRI and do a lateral cutaneous nerve of the thigh block for your symptoms if they are not better on the medicine. documented in this encounter Progress Notes Amador Gan MD - 08/01/2016 9:30 AM EDT NEUROLOGY CLINIC [facility] [place] [address] Facsimile: 08/01/2016 Patient name: Ruby Marcum Date of : 1945 Referring provider: Radha Will MD [facility] [address] [place] [address] Ruby Marcum is a 70-year-old woman who is a patient of Radha Will referred for evaluation of right thigh dysesthesias. Miss Marcum reports that since 2000 she has had a patch of numbness in the distal lateral right thigh, just above the knee. 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 This was stable for many years. Over the last few years, she has developed additional symptoms. She has soreness in her back in the bigluteal areas. She got an injection bilaterally, on the left side, the soreness resolved; however, her right paragluteal region remains sore. Sometimes, this pain can wrap around the lateral buttock and thigh and into the thigh, but never below the knee. In addition, she has developed a burning pain on the lateral aspect of her thigh on the right. It can be cold or burning, it can feel like it is sunburned, at times she has felt there is water dripping down the side of her thigh. She feels like it can be brought on by walking, at least she agreed with this when I suggested it. For example, the other day at [facility] she did a lot of walking and noticed the pain was much worse. It only comes on when standing, she has never experienced it when sitting. She denies any gait problems. There is no bowel or bladder trouble. She has not really tried any medications for this burning pain. Her hip pains have responded to naproxen in the past, but last week she was admitted to the hospital with palpitations and was found to have atrial fibrillation and is now on Eliquis, so she can no longer take naproxen, Tylenol is less effective. She does not notice any other exacerbating or alleviating factors to this burning pain on the right. She has never been on gabapentin. I reviewed her family history, she is adopted and so knows nothing about her parents or siblings' medical history. She has no children. SOCIAL HISTORY: She lives up near [facility]. 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 She lives with a partner. She does not drink, except occasionally, and does not smoke. PAST MEDICAL HISTORY: She has recently been diagnosed with atrial fibrillation and takes Eliquis. She also takes p.r.n. Cardizem. She does have a history of bilateral carpal tunnel syndrome status post bilateral release with good resolution of her symptoms. ALLERGIES: She is allergic to SULFONAMIDES. REVIEW OF SYSTEMS: Otherwise, all symptoms are reviewed and are negative. PHYSICAL EXAM: VITAL SIGNS: Blood pressure is 114/72, pulse of 72, BMI of 32. GENERAL EXAM: She is a pleasant woman in no distress. She is mildly overweight. Appears quite healthy. HEENT: Her head is atraumatic. Her oropharynx is clear. CARDIOVASCULAR: She has a regular rate and rhythm. I do not hear any heart murmurs. RESPIRATORY: Clear to auscultation bilaterally. Good air movement. ABDOMEN: Soft, bowel sounds are normal. EXTREMITIES: Peripheral pulses 2+, her pulses were regular. There is no edema. There is no joint abnormalities. ENDOCRINE: No lymphadenopathy is noted. MUSCULOSKELETAL: Straight leg raises are negative bilaterally. She has mild nonspecific tenderness in bilateral paragluteal regions, no lumbosacral area. There is no midline tenderness. The reverse straight leg raises are negative. Reji's and the FADIR tests are both negative bilaterally. There is no Tinel's anywhere in the thigh. NECK: Her neck is supple. Spurling's are negative. NEUROLOGIC: Her mental status is normal. Cranial nerve exams are normal including facial strength and extraocular movements. There is no dysarthria. MOTOR EXAM: She has normal bulk and tone. She has full strength to confrontation in the bilateral upper extremities. In the lower extremities, she has full strength including bilateral iliopsoas, quadriceps, hamstrings, thigh adductors, thigh abductors, tibialis anterior, gastrocnemius, extensor hallucis longus, foot inversion, foot eversion and toe flexion. SENSATION: She does note 60% sensation in the right distal lateral thigh just above the knee, which extends proximally about 6 cm. She also feels some allodynia on the right lateral thigh. This does not involve the medial, anterior or posterior surfaces. Otherwise, she feels vibration in the toes and it appears normal bilaterally. Sensation is otherwise normal. CEREBELLAR: Normal. GAIT: She has a normal narrow gait, can heel walk, toe walk and has a normal tandem. REFLEXES: Her reflexes are increased throughout with some crossed adduction and ankle jerks are easy to elicit and might even be increased. To help determine the etiology of these symptoms, we preformed EMG nerve conduction studies today. Since she is on blood thinners, I was unable to perform paraspinal EMG. Her nerve conductions studies were normal. There is no evidence of polyneuropathy, and Erwin's were normal. On EMG, there were chronic neurogenic changes to the right iliopsoas with normal distal EMG. ASSESSMENT AND PLAN: 1. Dysesthesias. The pattern of sensory disturbance along with an EMG suggesting a right L3 radiculopathy suggests that this problem is related to lumbosacral radiculopathy or lumbar stenosis affecting the lumbar nerve roots. It is possible she has meralgia paresthetica, explaining the sensory disturbances with the abnormalities noted on EMG as a separate problem. She also has some hyperreflexia, which suggests cervical stenosis. To determine whether lumbar stenosis or lumbar radiculopathy is causing this problem, I suggested an MRI of the lumbar spine. I suspect we will find some lumbar stenosis. She will schedule this today and follow up with me the same day to review the results. For her symptoms, we elected to proceed with gabapentin for symptomatic management. We will start with 100 mg at night. I suspect this will not help her all too much, but we started low to minimize side effects. I described that she can increase this to 300 mg slowly if needed. She will start this at night, so if she is sleepy it will not cause any trouble. If tolerated, she will increase this to 300 mg twice a day. She will call me with any trouble. We discussed side effects of anticholinergic problems, dizziness, sleepiness, imbalance and weight gain. Depending how she is doing at her next visit, we can increase this further. I will also plan to try a diagnostic lateral cutaneous nerve block at the next visit, unless symptoms are all better with gabapentin. I will see her back in followup at the time of the next MRI in a few weeks to see how she is doing. Thank you for this consult. Please do not hesitate to contact me with any questions or concerns. Amador Gan MD Fleet Manager of Neurology 08/01/2016 documented in this encounter Plan of Treatment Upcoming Encounters Date Type Specialty Care Team Description 08/05/2022 Office Visit Dermatology Bassam Foster MD [facility] [address] [facility] [place], [place] [address] (Wo rk) documented as of this encounter Results MRI Lumbar Spine wo Contrast (Generic) (09/10/2016 12:49 PM EST) Anatomical Region Laterality Modality L-spine Magnetic Resonance Specimen (Source) Anatomical Location Collection Method / Collectio n Time Received Time / Laterality Volume Impressions 09/10/2016 2:26 PM EST 1. Multilevel lumbar spine degenerative changes, most pronounced at the L3-4 and L4-5 facet joints as above. 2. 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 Comment: The following findings are so c ommon in people without low back pain that while we report their presence, the y must be interpreted with caution and in context of the clinical situation (Re ference- Jarvik et al, Spine 2001). Findings: (Prevalence in patients withou t low back pain), disc degeneration (decreased T2 signal, height loss, bulge ) (91%), disc T2-signal loss (83%), disc height loss (56%), disc bulge (64%), dis c protrusion (32%), annular fissure (38%). Narrative 09/10/2016 2:26 PM EST EXAMINATION: MRI LUMBAR SPINE WO CONTRAST (GENERIC) CLINICAL HISTORY: r/out R L3 neuroforami nal narrowing or lumbar stenosis TECHNIQUE: MR of the lumbar spine perfor med without the use of intravenous contrast. COMPARISON: None FINDINGS: There is transitional anatomy with a partially sacralized L5 segment. For the purposes of this dictation, ther e are small ribs at the T12 level, and the last complete intervertebral disc sp alex is called L5-S1. There is mild levoconvex curvature at the L4 level. Al ignment is otherwise maintained. There is no focal, aggressive appearing marrow lesion. The normal appearing conus terminates at the L1 level. Visualized r etroperitoneal structures are unremarkable. Findings at specific levels: L1-L2: No central canal or foraminal donovan rowing. There are mild facet degenerative changes. L2-L3: There are small bilateral foramin al disc protrusions with minimal caudal neural foraminal narrowing. Mild bilater al facet arthropathy is present. No central canal stenosis. L3-L4: There is minor disc bulging, and bilateral facet arthropathy without central canal or foraminal stenosis. L4-L5: Disc bulging and facet arthropath y produces minor caudal neural foraminal narrowing. No central canal stenosis. L5-S1: This level is transitional. No ce ntral canal or foraminal stenosis. Procedure Note Moses Crawley MD - 09/10/2016Format ting of this note might be different from the original. EXAMINATION: MRI LUMBAR SPINE WO CONTRAS T (GENERIC) CLINICAL HISTORY: r/out R L3 neuroforami nal narrowing or lumbar stenosis TECHNIQUE: MR of the lumbar spine perfor med without the use of intravenous contrast. COMPARISON: None FINDINGS: There is transitional anatomy with a partially sacralized L5 segment. For the purposes of this dictation, ther e are small ribs at the T12 level, and the last complete intervertebral disc sp alex is called L5-S1. There is mild levoconvex curvature at the L4 level. Al ignment is otherwise maintained. There is no focal, aggressive appearing marrow lesion. The normal appearing conus terminates at the L1 level. Visualized r etroperitoneal structures are unremarkable. Findings at specific levels: L1-L2: No central canal or foraminal donovan rowing. There are mild facet degenerative changes. L2-L3: There are small bilateral foramin al disc protrusions with minimal caudal neural foraminal narrowing. Mild bilater al facet arthropathy is present. No central canal stenosis. L3-L4: There is minor disc bulging, and bilateral facet arthropathy without central canal or foraminal stenosis. L4-L5: Disc bulging and facet arthropath y produces minor caudal neural foraminal narrowing. No central canal stenosis. L5-S1: This level is transitional. No ce ntral canal or foraminal stenosis. IMPRESSION 1. Multilevel lumbar spine degenerative changes, most pronounced at the L3-4 and L4-5 facet joints as above. 2. 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 Comment: The following findings are so c ommon in people without low back pain that while we report their presence, the y must be interpreted with caution and in context of the clinical situation (Re tonyence- Debrak et al, Spine 2001). Findings: (Prevalence in patients withou t low back pain), disc degeneration (decreased T2 signal, height loss, bulge ) (91%), disc T2-signal loss (83%), disc height loss (56%), disc bulge (64%), dis c protrusion (32%), annular fissure (38%). Amador Gan MD IMG MRI ORDERABLES documented in this encounter Visit Diagnoses Diagnosis Radiculopathy of lumbosacral region Thoracic or lumbosacral neuritis or radi culitis, unspecified Radiculopathy of lumbosacral region Thoracic or lumbosacral neuritis or radi culitis, unspecified documented in this encounter Care Teams Mechanical Engineering Intern Relationship Specialty Start Date End Date Radha Will MD PCP - General 01/17/15 09/09/16 NOLAN Snell [address] [place] [address] documented as of this encounter
--- OUTSIDE RECORDS SUMMARY | 2022-06-13 00:29 | XMS_ITS | Encounter Summary ---
:1945 Author Organization [facility] [place] [address] Care Team Providers Name Role Phone Radha Will MD Primary Care Provider Encounter Details Date Type Department Care Team Description 08/01/2016 Orders Only Neurology at [facility] [place] [address] Social History Tobacco Use Types Packs/Day Years Used Date Former Smoker Cigarettes Quit: 1970 Smokeless Tobacco: Never Used Alcohol Use Standard [...] 08/05/2022 Office Visit Dermatology Bassam Foster MD [facility] [address] K[address] [facility] [place], [place] [address] (Wo rk) documented as of this encounter Visit Diagnoses Not on filedocumented in this encounter Care Teams School Lunch Monitor Relationship Specialty Start Date End Date Radha Will MD PCP - General 01/17/15 09/09/16 NOLAN Snell [address] [place] [address] documented as of this encounter
--- OUTSIDE RECORDS SUMMARY | 2022-06-13 00:29 | XMS_ITS | Encounter Summary ---
:1945 Author Organization [facility] [place] [address] Care Team Providers Name Role Phone Blanca Busch Primary Care Provider Encounter Details Date Type Department Care Team Description 05/06/2022 Office Visit Dermatology at [facility], Juwan Nolasco MD [address] [place] [address] [facility] [place], [place] [address] Social History Tobacco Use Types Packs/Day Years Used Date Former Smoker Cigarettes Quit: 1969 Smokeless Tobacco: Never Used Alcohol Use Standard Drinks/Week Comments No 0 (1 standard drink = 0.6 oz pure alcoho l) Sex Assigned at Date Recorded Female 10/14/2021 12:34 PM EST documented as of this encounter Progress Notes K[facility]in Chong, [facility] - 05/06/2022 2:15 PM EDT Images from the original note were not included. DEPARTMENT OF DERMATOLOGY Medical Dermatology Clinic Provider: Bassam Foster MD Patient's preferred name Ruby Preferred contact method for results [x]??Phone []??myD-H []??Letter [phone] Detailed phone message OK? Yes ?? Past Medical History Date, location, treatment Melanoma N Dysplastic nevi N SCC N BCC N AKs N Other relevant past medical history?? 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 Patient returns to clinic today for a 3 monthfollow up of LPP. She is currently treating with topical minoxidil 3-4 times weekly, clobetasol solution maybe once weekly, and plaquenil 200 mg daily. States today her condition is stable. Last visit at Dermatology: 02/04/2022 Last visit with this provider: 02/04/2022 Medications: Reviewed in eD-H Allergies: Reviewed in eD-H Skin Examination: Focused skin examination of the scalp was normal with the exception of the findings below. Assessment/Plan #??Lichen Planopilaris,??Significantly Improved/stable??-??Significant increase of hair density and in number of terminal hairs. No hair shedding on pull test.??No areas of active disease seen on exam today -??continue??OTC Topical Minoxidil solution 5% QD -??continue??Rx: clobetasol solution - apply to the scalp??twice daily once weekly. If flaring increase to 3 times weekly application -??Patient??is already taking Rx: plaquenil??200 mg??daily for undifferentiated connective tissue disease. Discussed??other treatment options as there is still active disease seen on exam. Patient would like to continue with current treatment instead of switching medications. Figure 1 Photo(s) taken and charted with patient's verbal consent. RTC: 3 months for LPP follow up []Note routed to city secretary []Recall placed in scheduling system [x]Appointment scheduled at checkout Scribe attestation: Krystin Chong [facility] has performed the documentation for this encounter in the presence of and acting as a scribe for Bassam Foster MD. I performed the above scribed service and agree with the accuracy of the documentation in this encounter. Reviewed and signed by: Bassam Foster MD Dermatology [facility] documented in this encounter Plan of Treatment Upcoming Encounters Date Type Specialty Care Team Description 08/05/2022 Office Visit Dermatology Bassam Foster MD [facility] ER [address] [facility] [place], [place] [address] (Wo rk) documented as of this encounter Visit Diagnoses Diagnosis Lichen planopilaris Lichen planus documented in this encounter Care Teams Inspector Filters Relationship Specialty Start Date End Date Blanca Busch PA PCP - General Family Medicine 07/04/21 [address] [place] [address] documented as of this encounter
--- OUTSIDE RECORDS SUMMARY | 2022-06-13 00:29 | XMS_ITS | Encounter Summary ---
:1945 Author Organization [facility] [place] [address] Care Team Providers Name Role Phone Blanca Busch Primary Care Provider Reason for Visit Consultation (Routine) - Closed Specialty Diagnoses / Procedures Referred By Contact Refer red To Contact Dermatology Diagnoses Nonscarring hair loss, unspecified Blanca Busch PA [facility] Dermatology [address] [place] [address] [place] [address] Fax: Referral ID Status Reason Start Date Expiration Date Visits V isits Requested Authorized [id number] Closed Consult, Test 06/24/2021 06/24/2022 12 [facility] PCP Updated and/or Approved Encounter Details Date Type Department Care Team Description 07/05/2021 Office Visit Dermatology at [facility], Gissel Nolasco air loss (Primary Road Dx) [address] [place] [address] [facility] [place], [place] [address] Social History Tobacco Use Types Packs/Day Years Used Date Former Smoker Cigarettes Quit: 1969 Smokeless Tobacco: Never Used Alcohol Use Standard Drinks/Week Comments No 0 (1 standard drink = 0.6 oz pure alcoho l) Sex Assigned at Date Recorded Female 10/14/2021 12:34 PM EST documented as of this encounter Patient Instructions Patient InstructionsAmanda Boucher MD - 07/05/2021 2:45 PM EDT Treatment and Wound Care Instructions Your treatment today: You have had a punch biopsy of your skin, which is a removal of tissue for examination under a microscope. There are stitches in the wound that will need to be removed in 7 days. If bleeding occurs, hold firm pressure against the wound for 15 minutes. If bleeding continues, callthe office or go to your local emergency room. Please allow 1-2 weeks for the biopsy results to return. Your physician or nurse will contact you with the results by phone or letter; follow-up will be discussed at that time. Wound Care Instructions: You will need to keep the dressing placed over the wound dry and intact for 24 hours. Afterwards, perform the following wound care daily until your stitches are removed: ?? Wash your hands before changing the dressing. ?? Remove the bandage and clean the area with mild soap and water, then gently pat the area dry. ?? Apply a small amount of Vaseline to the area, then cover the wound with a band-aid. Change your dressing daily until the wound is fully healed. ?? A small amount of yellow drainage is part of normal healing. You might notice some redness aroundthe edge of the wound. This is normal. ?? Please contact the office you you notice any of the following signs of infection: increased tenderness, pain, drainage, or redness that becomes hot or hard around the wound. documented in this encounter Progress Notes Amanda Boucher MD - 07/05/2021 2:45 PM EDT Images from the original note were not included. DEPARTMENT OF DERMATOLOGY Medical Dermatology Clinic Provider: Bassam Foster MD Patient's preferred name Ruby Preferred contact method for results [x]Phone []myD-H []Letter [phone] Detailed phone message OK? Yes Past Medical History Date, location, treatment Melanoma N Dysplastic nevi N SCC N BCC N AKs N Other relevant past medical history N Family History Details Melanoma N NMSC N Other relevant family history N Social History Lives in [place] History of Present Illness: Ruby Marcum is a 75 y.o. Patient returns to clinic today for hair loss. - Noticed that part is getting wider with hair thinning localized to crown of scalp - Hair loss present for 1.5 years - Denies increased hair shedding, itching, pain, scaling, and pustules - Not currently treating - Reports sister with history of thinning hair - Denies hair loss elsewhere - Recent outside labs with elevated Cr, other labs (CBC, CMP, TSH) wnl - On medications: hydroxychloroquine (connective tissue disease), wellbutrin (on for a few years), adderall (for 1 year) Last visit at [facility] Derm: 08/09/2018 Last visit with this provider: Visit date not found Medications: Reviewed in eD-H Allergies: Reviewed in eD-H Skin Examination: Focused skin examination of the scalp was normal with the exception of the findings below. Assessment/Plan #. Hair loss EXAM: diffuse hair thinning of the vertex scalp with perifollicular erythema and scale. No evidence of loss of follicular ostia. Retention of frontal hairline. Negative pull hair test. - DDX: LPP vs seborrheic dermatitis vs androgenetic alopecia - Reports 1.5 year history of hair thinning of the vertex, asymptomatic - Given perifollicular erythema and scale can consider early LPP vs juanjose derm - Per patient, recent outside labs with elevated Cr, all other labs wnl (CBC, CMP, and TSH) - Joint decision made to proceed with punch biopsy to guide diagnosis and management Plan: - Recommend starting OTC Topical Minoxidil solution 5% QD or 5% foam QD. Foam is commonly more tolerated than the solution due to lack of Propylene glycol; can have increased hair loss in first 2-8wks;should see improvement in 3-4 months. Avoid apply to skin except for skin on the scalp to decrease risk of hair growth in unwanted areas - S/p punch biopsy, procedure note below Procedure: Punch Biopsy Punch biopsy: 4 mm Location: vertex scalp Suture: 4-0 Prolene The patient's consent was obtained. Risk of infection, scarring, nerve damage, pigment change, numbness, incomplete removal, recurrence, bleeding, pain and uncommonly so, allergic reaction to anesthesia were all reviewed. Sterile preparation was used. Anesthesia obtained with 1% lidocaine with epinephrine. A punch biopsy was obtained and closed with simple interrupted sutures. The specimen was sent to pathology for histologic evaluation. Vaseline and bandaid were applied. Wound care was reviewed andwritten instructions were given. S/R in 7 days. Figure 1 Photo(s) taken and charted with patient's verbal consent. Other: ??? N/A RTC: Pending pathology results []Note routed to departmental secretary []Recall placed in scheduling system []Appointment scheduled at checkout Seen and reviewed by: Amanda Boucher MD Dermatology Resident Department of Dermatology I performed the above scribed service and agree with the accuracy of the documentation in this encounter. Reviewed and signed by: Amanda Boucher MD Dermatology [facility] Patient seen and evaluated with staff physician surgeon: Bassam Foster MD Dermatology [facility] Bassam Foster MD - 07/05/2021 2:45 PM EDT I directly supervised Dr. Boucher in the care of this patient. I saw and evaluated this patient with Dr. Boucher She presented the history and physical exam details to me, then we saw the patient together and I confirmed these findings. I agree with details as written.My physical examination confirms her findings. The assessment and plan were formulated in discussion with me at the time of visit and I agree with them as documented. 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 Recommended that patient continue minoxidil and start clobetasol scalp solution. RTC in 1 month and will discuss possible ILK treatment. documented in this encounter Plan of Treatment Upcoming Encounters Date Type Specialty Care Team Description 08/05/2022 Office Visit Dermatology Bassam Foster MD [facility] ER [address] [place], [place] [address] (Wo rk) documented as of this encounter Procedures Procedure Name Priority Date/Time Associated Diagnosis Comme nts SPECIMEN TO Routine 07/05/2021 3:22 PM Hair loss Results f or this PATHOLOGY EDT procedure are i n the results section. SURGICAL PATHOLOGY Routine 07/05/2021 3:21 PM Res ults for this REPORT EDT procedure are i n the results section. documented in this encounter Results Specimen to Pathology (07/05/2021 3:22 PM EDT) Specimen Anatomical Collection Method Collection Time Receive d Time (Source) Location / / Volume Laterality AP Specimen 07/05/2021 3:22 PM 3:22 EDT PM EDT Narrative [facility] - 07/05/2021 3:22 PM EDT Specimen requisition ordered. ??Separate Pathology report to follow Bassam Foster MD PATHOLOGY/CYTOLOGY ORDERABLE S Performing Organization Address City/State/Z[place] [address] Surgical Pathology Report (07/05/2021 3:21 PM EDT) Component Value Ref Test Analysis Performed At Patholo gist Range Method Time Signature Surgical [id number] ? Location: [facility] Report The signing pathologist has (i) examined the relevant preparation(s) for the [facility] specimen(s) and (ii) rendered or confirmed the diagnosis(es) . HOSPITAL [facility] . ?Surgic al Pathology DIAGNOSIS Vertex scalp, skin punch biopsy: - Perifollicular fibroplasia , increase of miniaturized hair follicles and fibrous streamer ??(see Discussion) Electronically signed by: ?Lonny CHIRINOS, PhD, Gypsy Verified: ??07/08/2021 16:30 ??Dermatopathologist Performed at: ??-[facility] Dept. of Pathology, [place], [place] DISCUSSION The biopsy is examined on multiple horizontally orient ed step level sections and shows ??reduced number of hairs when counted at dermal/ fat junction with presence of fibrous streamer and miniaturization witho ut deep bulbar inflammation. ??Perifollicu lar fibroplasia is noted. ?? There is also ??dense superficial perivascular ??lymphohistio cytic infiltrate. Focal ruptured follicle with foreign body-type giant cell reaction is noted. In the appropriate clinical, findings in the biopsy could represe nt scarring alopecia such as lichen planopilaris with superimposed features of an drogenetic alopecia. Clinicopathologic correlation is necessary. ADDITIONAL STUDIES Special stains are performed. ?? Block ? Stain ?Result ( Positive / Negative ) ??A1 ?PAS/F ? Negative for fungi SPECIMEN(S) SUBMITTED A - vertex scalp, skin punch (1) CLINICAL INFORMATION 75-year-old female with diff use hair thinning of the vertex with perifollicular erythema and scale SPECIMEN PROCESSING A - Labeled/Fixative: Patient demographics, formalin. Quantity/Size: ??Single, 0.4 cm diameter, 0.6 cm depth. Tissue Description: Nonoriented, torre-white sparsely h airbearing skin punch. Sections/Processing: Bisected horizontally along the dermal/subcutaneous tissue i nterface Bisected and entirely submitted in 1 cassette labeled A1. ??shb Specimen (Source) Anatomical Collection Method Collection Time Re ceived Time Location / / Volume Laterality 07/05/2021 3:21 PM EDT Amanda Boucher MD PATHOLOGY/CYTOLOGY ORDERABLE S Performing Organization Address City/State/ZIP [place] [address] [facility] [address] documented in this encounter Visit Diagnoses Diagnosis Hair loss - Primary Alopecia, unspecified documented in this encounter Care Teams Notary Public Relationship Specialty Start Date End Date Blanca Busch PA PCP - General Family Medicine 07/04/21 [address] [place] [address] documented as of this encounter
--- OUTSIDE RECORDS SUMMARY | 2022-06-13 00:29 | XMS_ITS | Encounter Summary ---
:1945 Author Organization [facility] [place] [address] Care Team Providers Name Role Phone Inderjit Roberta Dobson Primary Care Provider Reason for Visit Reason Onset Date Comments Other 03/15/2021 Encounter Details Date Type Department Care Team Description 03/15/2021 Telephone Rheumatology at [facility] [place] [address] Social History Tobacco Use Types Packs/Day Years Used Date Former Smoker Cigarettes Quit: 1969 Smokeless Tobacco: Never Used Alcohol Use Standard Drinks/Week Comments No 0 (1 standard drink = 0.6 oz pure alcoho l) Sex Assigned at Date Recorded Female 10/14/2021 12:34 PM EST documented as of this encounter Miscellaneous Notes Telephone Encounter - Guido Bhatt RN - 03/15/2021 10:43 AM EDT Andrzej Mobley MD sent to Guido Bhatt RN Caller: Unspecified (Yesterday, 12:46 PM) This is the message Dr. Mendoza recently sent: The CDC has not recommended guidelines for the clinical use of assays that measure antibodies to Covid. ??Therefore, we cannot recommend their use in clinical practice. ??Please call your PCP if you have any further questions RTC to Ruby and left a message stating the above recommendation from Dr. Mobley. Telephone Encounter - Guido Bhatt RN - 03/15/2021 9:28 AM EDT RTC to Ruby and she is asking should she be concerned, to have an antibody test, since she is on HCQ? She saw something on TV about having No antibodies after having the Covid vaccine. She had the Moderna vaccine. documented in this encounter Plan of Treatment Upcoming Encounters Date Type Specialty Care Team Description 08/05/2022 Office Visit Dermatology Bassam Foster MD [facility] ER DR [address] [place], [place] [address] (Wo rk) documented as of this encounter Visit Diagnoses Not on filedocumented in this encounter Care Teams Site Identification Specialist Relationship Specialty Start Date End Date Roberta Jansen DO PCP - General Family Medicine 07/21/18 04/25/[address] [place] [address] documented as of this encounter
--- OUTSIDE RECORDS SUMMARY | 2022-06-13 00:29 | XMS_ITS | Clinical Summary ---
:1945 Author Organization [facility] [place] [address] Care Team Providers Name Role Phone Blanca Busch Primary Care Provider Allergies Active Allergy Reactions Severity Noted Date Comments Sulfa (Sulfonamide Antibiotics) Hives 6 Swelling Medications Medication Sig Dispensed Refills Start Date End Date Status aspirin EC 81 mg Daily. 0 Act yasir Tablet, Delayed Release (E.C.) buPROPion SR TAKE ONE TABLET BY 0 09/05/2020 Active (Wellbutrin SR) 150 MOUTH EVERY MORNING mg tablet CONTINUE HIGHER sustained-release 12 DOSE hr MAGNESIUM ORAL Take by mouth. 0 Active fluticasone Flonase Allergy Relief 50 mcg/actuation nasal spray,suspen tamy 0 Active propionate (Flonase) SPRAY 1 - 2 SPRAYS (50 - 10 0 MCG) IN EACH NOSTRIL BY INTRANASAL ROUTEONCE DAILY NEEDED 50 mcg/actuation Joseph, Suspension calcium calcium carbonate-vitamin D3 0 Active carbonate-vitamin D3 500- 400 one BID 1,000 mg(2,500 mg)-800 unit Tablet baclofen (Lioresal) Take 10 mg by mouth 0 Active 10 mg Tablet Every 12 hours. dextroamphetamine-amp Take 5 mg by mouth 0 1 Active hetamine (Adderall) 5 daily. mg Tablet diazePAM (Valium) 5 Take 5 mg by mouth 0 Active mg Tablet nightly as needed. loratadine (Claritin) Take 10 mg by mouth 0 Active 10 mg Tablet 2 times daily. ibuprofen ibuprofen 200 mg tablet 0 Active (Advil;Motrin) 200 mg TAKE 1-2 TABLET BY ORAL ROU TE EVERY 6 HOURS NEEDED WITH FOOD Tablet clobetasoL (TEMOVATE) Apply topically 2 50 mL 1 09/03/2021 Active 0.05 % times daily. To SolutionIndications: scalp Lichen planopilaris folic acid (Folvite) Take 1 mg by mouth 0 Active 1 mg Tablet daily. 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 Mouth sores 05/13/2021 Rotator cuff tear, left 05/13/2021 Telangiectasia 05/13/2021 Seronegative rheumatoid arthritis 11/12/2020 Hearing loss 11/12/2020 Sensorineural hearing loss (SNHL) of both ears 020 Tinnitus of both ears 04/05/2020 Undifferentiated connective tissue disease 09/29/2019 Borderline hypertension 06/09/2018 PAF (paroxysmal atrial fibrillation) 06/09/2018 PMR (polymyalgia rheumatica) 06/09/2018 History of depression 05/21/2017 Carpal tunnel syndrome of left wrist 01/15/2015 Encounters Date Type Specialty Care Team Description 06/03/2022 Office Visit Rheumatology Andrzej Mobley MD Seronegat yasir rheumatoid arthritis 05/06/2022 Office Visit Dermatology Bassam Foster MD Lichen planopilaris from Last 3 Months Social History Tobacco Use Types Packs/Day Years Used Date Former Smoker Cigarettes Quit: 1970 Smokeless Tobacco: Never Used Alcohol Use Standard Drinks/Week Comments No 0 (1 standard drink = 0.6 oz pure alcoho l) Sex Assigned at Date Recorded Female 10/14/2021 12:34 PM EST Last Filed Vital Signs Vital Sign Reading Time Taken Comments Blood Pressure 126/81 06/03/2022 11:07 AM EDT Pulse 77 06/03/2022 11:07 AM EDT Temperature 36.2 ??C (97.2 ??F) 06/03/2022 11:07 AM EDT Respiratory Rate 16 06/03/2022 11:07 AM EDT Oxygen Saturation 100% 06/03/2022 11:07 AM EDT Inhaled Oxygen - - Concentration Weight 65.9 kg (145 lb 3.2 06/03/2022 11:07 Patient ref used and oz) AM EDT gave weight. Height 152.4 cm (5') 06/03/2022 11:07 AM EDT Body Mass Index 28.36 06/03/2022 11:07 AM EDT Plan of Treatment Upcoming Encounters Date Type Specialty Care Team Description 08/05/2022 Office Visit Dermatology Bassam Foster MD [facility] [address] [facility] [place], [place] [address] (Wo rk) Health Maintenance Due Date Last Done Comments Covid-19 Vaccine (#1) 1950 Hepatitis C Screening 1964 Tdap adult 1965 Tetanus vaccine 1965 Colonoscopy 1991 Zoster vaccine (1 of 2) 1996 Bone Density Scan 2011 Pneumoccocal Vaccine: 65+ (1 - PCV) 2011 Influenza (Flu) vaccine (1 of 1 - Influenza standard 06/26/2022 series) Insurance Payer Benefit Plan / Subscriber ID Effective Dates Phone Addre ss Type Group MEDICARE MEDICARE PART [id number] 2011-Prese [phone] [facility] [place] [phone] [employer] [id number] 2012-Prese [address] [address] [place] [address] Advance Directives Documents on File Type Date Recorded Patient Hand Fretted Instrument Maker Explanati on Advance Directives and Living 11/14/2015 11:21 AM 4.23.14 Will Care Teams General Farm Hand Relationship Specialty Start Date End Date Blanca Busch PA PCP - General Family Medicine 07/04/21 [address] [place], [place] [address]
--- OUTSIDE RECORDS SUMMARY | 2022-06-13 00:29 | XMS_ITS | Encounter Summary ---
:1945 Author Organization [facility] [place] [address] Care Team Providers Name Role Phone Blanca Busch Primary Care Provider Encounter Details Date Type Department Care Team Description 07/11/2021 Orders Only Dermatology at [facility] Amanda Boucher MD Hair loss (Primary Dx) [facility] [address] [place] [address] [facility] [phone] [address]-DERMATOLOGY [place] [address] Social History Tobacco Use Types Packs/Day Years [...] 08/05/2022 Office Visit Dermatology [facility] Foster [facility] [place], [place] [address] (Wo rk) documented as of this encounter Visit Diagnoses Diagnosis Hair loss - Primary Alopecia, unspecified documented in this encounter Care Teams Java Xml Developer Relationship Specialty Start Date End Date Blanca Busch PA PCP - General Family Medicine 07/04/21 [address] [place], [place] [id number] documented as of this encounter
--- OUTSIDE RECORDS SUMMARY | 2022-06-13 00:29 | XMS_ITS | Encounter Summary ---
:1945 Author Organization [facility] [place] [address] Care Team Providers Name Role Phone Madelyn Crouch MD Primary Care Provider Encounter Details Date Type Department Care Team Description 09/10/2016 Office [place] [facility] [place] Gan parestheticzoran [facility] [place] [address] Neurology [phone] [place] [address] (Wo rk) Social History Tobacco Use Types Packs/Day Years Used Date Former Smoker Cigarettes Quit: 1969 Smokeless Tobacco: Never Used Alcohol Use Standard Drinks/Week Comments No 0 (1 standard drink = 0.6 oz pure alcoho l) Sex Assigned at Date Recorded Female 10/14/2021 12:34 PM EST documented as of this encounter Last Filed Vital Signs Vital Sign Reading Time Taken Comments Blood Pressure 117/73 09/10/2016 2:12 PM EST Pulse 87 09/10/2016 2:12 PM EST Temperature - - Respiratory Rate - - Oxygen Saturation - - Inhaled Oxygen Concentration - - Weight 76.7 kg (169 lb) 09/10/2016 2:12 PM EST Height 154.9 cm (5' 1) 09/10/2016 2:12 PM EST Body Mass Index 31.93 09/10/2016 2:12 PM EST documented in this encounter Progress Notes Amador Gan MD - 09/10/2016 2:30 PM EST Ruby Marcum is a 70-year-old woman referred to me originally for burning right thigh pain and back pain. She comes now to review her MRI. She got an MRI of the lumbar spine today. I reviewed it personally. It looks fairly pristine. The central canal as well as the neural foramina are wide open at every level. There are no cord signal abnormalities and no clear entrapment of any of the lumbosacral nerve roots. I reviewed the official read from Radiology. Things look fine apart from very mild degenerative changes which are of no clinical significance. I reviewed this with the patient and her partner today. Meanwhile, she is doing much better on gabapentin 100 mg twice a day. It seems to have helped the dysesthetic pain in her right thigh. While I thought there may be EMG evidence of lumbar radiculopathy on the right, based on the MRI, I suspect this is more of an overcall. There is a fair deal of subjectivity in interpreting subtle EMG changes. ASSESSMENT AND PLAN: 1. Right thigh pain: In conclusion, I think this is meralgia paresthetica or lateral femoral cutaneous neuropathy. I explained this to the patient. She seems better on gabapentin. If she needs to, she can always take more. 2. Back pain. I am unclear on the generator of her back pain. She follows with a manager adobe and is going to start Plaquenil and prednisone soon. It does not seem inflammatory to me, but I suppose it is possible. More likely, this is strain or another common cause of back pain. I suggested she exercise and try pool therapy. I also discussed the importance of weight loss. I also discussed the natural history, which often involves improvement. She and her partner had all of their questions answered. I spent 15 minutes of [id number] consultation of which greater than 10 minutes were spent reviewing the MRI and providing supportive counseling and therapeutic planning. I did not schedule a followup but gave them my card should anything else come up. Amador Gan MD 09/10/2016 documented in this encounter Plan of Treatment Upcoming Encounters Date Type Specialty Care Team Description 08/05/2022 Office Visit Dermatology Bassam Foster MD [facility] [address] [place], [place] [address] (Wo rk) documented as of this encounter Visit Diagnoses Diagnosis Meralgia paresthetica of right side Meralgia paresthetica documented in this encounter Care Teams Hydraulic Dredge Operator Relationship Specialty Start Date End Date Madelyn Crouch MD PCP - General Family Medicine 09/10/16 07/20/18 [address] [place] [address] documented as of this encounter
--- OUTSIDE RECORDS SUMMARY | 2022-06-13 00:29 | XMS_ITS | Encounter Summary ---
:1945 Author Organization [facility] [place] [address] Care Team Providers Name Role Phone Roberta Jansen DO Primary Care Provider Reason for Visit Reason Comments Skin Lesion bridge of nose Consultation (Routine) - Closed Specialty Diagnoses / Procedures Referred By Contact Refer red To Contact Dermatology Diagnoses Lesion @ bridge of nose: small plaque, rough/red,possible Roberta Delgado DO [facility] Dermatology [address] [place] [id number] Referral ID Status Reason Start Date Expiration Date Visits V isits Requested Authorized [id number] Closed Consult, 07/21/2018 07/21/2019 1 1 [facility] Encounter Details Date Type Department Care Team Description 08/09/2018 Office Visit Dermatology at [facility] Thapa MD [facility] [address] [place] [address] Allyson Moe PA [facility] [place] [address] [place] [address] Social History Tobacco Use Types Packs/Day Years Used Date Former Smoker Cigarettes Quit: 1969 Smokeless Tobacco: Never Used Alcohol Use Standard Drinks/Week Comments No 0 (1 standard drink = 0.6 oz pure alcoho l) Sex Assigned at Date Recorded Female 10/14/2021 12:34 PM EST documented as of this encounter Progress Notes Allyson Moe PA - 08/09/2018 3:30 PM EDT Images from the original note were not included. DERMATOLOGY - NEW PATIENT CONSULT NOTE Date of service: 08/09/2018 Ruby Marcum : 1945, 72 y.o. CC: Chief Complaint Patient presents with ??? Skin Lesion bridge of nose HPI: Ruby Marcum is a 72 y.o. female seen in consultation at the request of Roberta cool red lesion on the right side of her nose present for several months. Denies itching, bleeding, or tenderness of any of this lesion. Denies prior treatments. Current prescription medications include: Hydroxychloroquine 200mg BID Lorazepam 0.5 mg prn Dilatiazem 30mg prn Voltaren gel 1% prn OTC meds Laratadine 10mg BID Calcium with Vitamin D 500mg BID Flonase od Relevant Skin History: - Okay to leave detailed message with results? yes - Skin cancer (including type):None Medications: Current Outpatient Medications Medication Sig Dispense Refill ??? hydroxychloroquine (PLAQUENIL) 200 mg Tablet Take 200 mg by mouth daily. ??? predniSONE (DELTASONE) 5 mg Tablet Take 10 mg by mouth 2 times daily. ??? apixaban (ELIQUIS) 5 mg Tablet Take 5 mg by mouth 2 times daily. ??? DILTiazem (CARDIZEM) 30 mg Tablet Take 30 mg by mouth as needed (HR 120+). ??? gabapentin (NEURONTIN) 100 mg Capsule Take 1 capsule by mouth 3 times daily. 180 capsule 3 No current facility-administered medications for this visit. Allergies: Allergies Allergen Reactions ??? Sulfa (Sulfonamide Antibiotics) Hives Swelling Review of Systems: - General: Feels well. - Skin: No other skin concerns. Examination: - Constitutional: Patient was alert, well-appearing and in no noticeable distress. - Skin: Skin examination of the scalp, and face was normal with the exception of the findings listedbelow. Patient declined genital exam. 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 She will call if a bump forms or the site bleeds or becomes tender or scaly. LOS: [id number] RTC: PRN Photos taken and documented with patient consent. Note initiated by HERMELINDO GUERRA. I, HERMELINDO GUERRA, have performed the documentation for this encounter in the presence of andacting as a scribe for Allyson Moe PA-C (Bri). I performed the services which were documented by the scribe, and I agree with the accuracy of the documentation in this encounter. Allyson Moe PA-C (Bri) Reviewed and signed by Allyson Moe PA-C [facility] Patient seen in conjunction with staff blacksmith supervisor: Alicia Sainz MD Section of Dermatology [facility] Alicia Sainz MD - 08/09/2018 3:30 PM EDT Patient seen and examined. Blanchable spider telangectasia on dorsal nose- reassured about benign nature. Patient seen in conjunction with Allyson Moe PA-C (Bri) Signed by: ALICIA SAINZ MD Section of Dermatology [facility] documented in this encounter Plan of Treatment Upcoming Encounters Date Type Specialty Care Team Description 08/05/2022 Office Visit Dermatology Bassam Foster MD [facility] [address] [place], [place] [address] (Wo rk) documented as of this encounter Visit Diagnoses Diagnosis Telangiectasia Other and unspecified capillary diseases documented in this encounter Care Teams Ludlow Machine Operator Relationship Specialty Start Date End Date Roberta Jansen DO PCP - General Family Medicine 07/21/18 04/25/[address] [place] [address] documented as of this encounter
--- OUTSIDE RECORDS SUMMARY | 2022-06-13 00:29 | XMS_ITS | Encounter Summary ---
:1945 Author Organization [facility] [place] [address] Care Team Providers Name Role Phone Blanca Busch Primary Care Provider Encounter Details Date Type Department Care Team Description 09/03/2021 Office Visit Dermatology at [facility] [address] [address] MD [address] [place] [address] [facility] [place], [place] [address] Social History Tobacco Use Types Packs/Day Years Used Date Former Smoker Cigarettes Quit: 1969 Smokeless Tobacco: Never Used Alcohol Use Standard Drinks/Week Comments No 0 (1 standard drink = 0.6 oz pure alcoho l) Sex Assigned at Date Recorded Female 10/14/2021 12:34 PM EST documented as of this encounter Progress Notes Bassam Foster MD - 09/03/2021 4:15 PM EST Images from the original note were not included. DEPARTMENT OF DERMATOLOGY Medical Dermatology Clinic Provider: Bassam Foster MD Patient's preferred name Ruby Preferred contact method for results [x]Phone []myD-H []Letter [phone] Detailed phone message OK? 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 year old. 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 No longer wearing wig Last visit at [facility] Derm: 07/05/2021 Last visit with this provider: 07/05/2021 Medications: Reviewed in eD-H Allergies: Reviewed in eD-H Skin Examination: Focused skin examination of the scalp was normal with the exception of the findings below Assessment/Plan # Lichen Planopilaris improving - Few light pink patches on the scalp with perifollicular scale, mild hair loss across the vertex of the scalp - discussed biopsy results, condition and treatments with patient, discussed ILK, patient defers at this time, joint decision made to continue with the current topicals - continue OTC Topical Minoxidil solution 5% QD or 5% foam QD. Foam is commonly more tolerated than the solution due to lack of Propylene glycol; can have increased hair loss in first 2-8wks; should see improvement in 3-4 months. Avoid apply to skin except for skin on the scalp to decrease risk of hair growth in unwanted areas - continue and refill Rx: clobetasol solution - apply to the scalp twice daily every other day (paper script given, patient uses [facility]) - discussed other treatment options with patient, she is already taking plaquenil daily for undifferentiated connective tissue disease; we can consider MTX in future Photo was taken and charted with patient's verbal consent. Other items to document in the assessment/plan if relevant ??? N/A RTC: 4-6 weeks for LPP follow up []Note routed to pulling machine operator []Recall has been placed in scheduling system [x]Appointment scheduled at checkout Scribe attestation: Leslee Barrera CMA who has performed the documentation for this encounter in the presence of and acting as a scribe for Bassam Foster MD. I performed the above scribed service and agree with the accuracy of the documentation in this encounter. Reviewed and signed by: Bassam Foster MD Dermatology [facility] documented in this encounter Plan of Treatment Upcoming Encounters Date Type Specialty Care Team Description 08/05/2022 Office Visit Dermatology Bassam Foster MD [facility] [address] [place], [place] [address] (Wo rk) documented as of this encounter Visit Diagnoses Diagnosis Lichen planopilaris Lichen planus documented in this encounter Care Teams Gas Golf Cart Repairer Relationship Specialty Start Date End Date Blanca Busch PA PCP - General Family Medicine 07/04/21 [address] [place] [address] documented as of this encounter
--- OUTSIDE RECORDS SUMMARY | 2022-06-13 00:29 | XMS_ITS | Encounter Summary ---
:1945 Author Organization [facility] [address] Care Team Providers Name Role Phone Blanca Busch Primary Care Provider Encounter Details Date Type Department Care Team Description 12/16/2021 Office Visit Dermatology at [facility] [address] MD [address] [place] [address] [facility] [place], [place] [address] Social History Tobacco Use Types Packs/Day Years Used Date Former Smoker Cigarettes Quit: 1969 Smokeless Tobacco: Never Used Alcohol Use Standard Drinks/Week Comments No 0 (1 standard drink = 0.6 oz pure alcoho l) Sex Assigned at Date Recorded Female 10/14/2021 12:34 PM EST documented as of this encounter Progress Notes Bassam Foster MD - 12/16/2021 1:45 PM EST Images from the original note were not included. DEPARTMENT OF DERMATOLOGY Medical Dermatology Clinic Provider: Bassam Foster MD Patient's preferred name Ruby Preferred contact method for results [x]?Phone []?myD-H []?Letter [phone] Detailed phone message OK? Yes ?? Past [...] Illness: Ruby Marcum is a 76 y.o. year old. Patient returns to clinic today fora follow up of LPP, she is using topical minoxidil and clobetasol solution, she is also taking plaquenil originally prescribed for connective tissue disease. She states today she is doing very well with treatment. Her partner told her she has some brown skin color changes on her scalp that she would like to have evaluated. She denies excessive hair shedding and stinging. Last visit at [facility] Derm: 10/15/2021 Last visit with this provider: 10/15/2021 Medications: Reviewed in eD-H Allergies: Reviewed in eD-H Skin Examination: Focused skin examination of the scalp was normal with the exception of the findings below Assessment/Plan #??Lichen Planopilaris, Significant improvement - some areas of erythema on the scalp with perifollicular scale, mild hair loss across the vertex of the scalp with regrowth on hair line. some areas of active disease seen on exam today -??continue??OTC Topical Minoxidil solution 5% QD - increase Rx: clobetasol solution - apply to the scalp twice daily every day for two weeks, then stop for 5 days, then repeat until next visit. - Patient is already taking plaquenil 200 mg daily for undifferentiated connective tissue disease. Discussed other treatment options as there is still active disease seen on exam. Patient would like tocontinue with current treatment instead of switching medications. Figure 1: RTC: 6-8 weeks for LPP follow up []Note routed to office secretary []Recall has been placed in scheduling system [x]Appointment scheduled at checkout Scribe attestation: Krystin Chong JOHN DOUGL[facility] FRENCH CENTERJoey who has performed the documentation for this encounter in the presence of and acting as a scribe for Bassam Foster MD. I performed the above scribed service and agree with the accuracy of the documentation in this encounter. Reviewed and signed by: Bassam Foster MD Dermatology [facility] documented in this encounter Plan of Treatment Upcoming Encounters Date Type Specialty Care Team Description 08/05/2022 Office Visit Dermatology Bassam Foster MD [facility] [address] [place], [place] [address] (Wo rk) documented as of this encounter Visit Diagnoses Diagnosis Lichen planopilaris Lichen planus documented in this encounter Care Teams Warehouse Order Puller Relationship Specialty Start Date End Date Blanca Busch PA PCP - General Family Medicine 07/04/21 [address] [place] [address] documented as of this encounter
--- OUTSIDE RECORDS SUMMARY | 2022-06-13 00:29 | XMS_ITS | Encounter Summary ---
:1945 Author Organization [facility] [place] [address] Care Team Providers Name Role Phone Blanca Busch Primary Care Provider Reason for Visit Reason Comments Follow-up Encounter Details Date Type Department Care Team Description 10/29/2021 Office Visit Rheumatology at [facility] Andrzej Mobley, Seronegative [facility] [place] [address] [place] [address] [place]ATOLOGY [place] [address] Social History Tobacco Use Types Packs/Day Years Used Date Former Smoker Cigarettes Quit: 1969 Smokeless Tobacco: Never Used Alcohol Use Standard Drinks/Week Comments No 0 (1 standard drink = 0.6 oz pure alcoho l) Sex Assigned at Date Recorded Female 10/14/2021 12:34 PM EST documented as of this encounter Last Filed Vital Signs Vital Sign Reading Time Taken Comments Blood Pressure 138/68 10/29/2021 2:08 PM EST Pulse 86 10/29/2021 2:08 PM EST Temperature 36.4 ??C (97.6 ??F) 10/29/2021 2:08 PM EST Respiratory Rate 16 10/29/2021 2:08 PM EST Oxygen Saturation 100% 10/29/2021 2:08 PM EST Inhaled Oxygen Concentration - - Weight 65.9 kg (145 lb 3.2 10/29/2021 2:08 PM weighed a t home oz) EST Height 152.4 cm (5') 10/29/2021 2:08 PM EST Body Mass Index 28.36 10/29/2021 2:08 PM EST documented in this encounter Patient Instructions Patient Andrzej Manzo MD - 10/29/2021 2:00 PM EST Images from the original note were not included. Decrease HCQ to 200 mg daily from 300 mg. Yearly eye exams. Call with any changes elbert after decreasing HCQ Patient Education Hand Arthritis: Exercises Introduction Here are some examples of exercises for you to try. The exercises may be suggested for a condition or for rehabilitation. Start each exercise slowly. Ease off the exercises if you start to have pain. You will be told when to start these exercises and which ones will work best for you. How to do the exercises Tendon glides 1. In this exercise, the steps follow one another to a make a continuous movement. 2. With your affected hand, point your fingers and thumb straight up. Your wrist should be relaxed, following the line of your fingers and thumb. 3. Curl your fingers so that the top two joints in them are bent, and your fingers wrap down. Your fingertips should touch or be near the base of your fingers. Your fingers will look like a hook. 4. Make a fist by bending your knuckles. Your thumb can gently rest against your index (pointing) finger. 5. Unwind your fingers slightly so that your fingertips can touch the base of your palm. Your thumb can rest against your index finger. 6. Move back to your starting position, with your fingers and thumb pointing up. 7. Repeat the series of motions 8 to 12 times. 8. Switch hands and repeat steps 1 through 6, even if only one hand is sore. Intrinsic flexion 1. Rest your affected hand on a table and bend the large joints where your fingers connect to your hand. Keep your thumb and the other joints in your fingers straight. 2. Slowly straighten your fingers. Your wrist should be relaxed, following the line of your fingers and thumb. 3. Move back to your starting position, with your hand bent. 4. Repeat 8 to 12 times. 5. Switch hands and repeat steps 1 through 4, even if only one hand is sore. Finger extension 1. Place your affected hand flat on a table. 2. Lift and then lower one finger at a time off the table. 3. Repeat 8 to 12 times. 4. Switch hands and repeat steps 1 through 3, even if only one hand is sore. MP extension 1. Place your good hand on a table, palm up. Put your affected hand on top of your good hand with your fingers wrapped around the thumb of your good hand like you are making a fist. 2. Slowly uncurl the joints of your affected hand where your fingers connect to your hand so that only the top two joints of your fingers are bent. Your fingers will look like a hook. 3. Move back to your starting position, with your fingers wrapped around your good thumb. 4. Repeat 8 to 12 times. 5. Switch hands and repeat steps 1 through 4, even if only one hand is sore. PIP extension (with MP extension) 1. Place your good hand on a table, palm up. Put your affected hand on top of your good hand, palm up. 2. Use the thumb and fingers of your good hand to grasp below the middle joint of one finger of youraffected hand. 3. Straighten the last two joints of that finger. 4. Repeat 8 to 12 times. 5. Repeat steps 1 through 4 with each finger. 6. Switch hands and repeat steps 1 through 5, even if only one hand is sore. DIP flexion 1. With your good hand, grasp one finger of your affected hand. Your thumb will be on the top side of your finger just below the joint that is closest to your fingernail. 2. Slowly bend your affected finger only at the joint closest to your fingernail. 3. Repeat 8 to 12 times. 4. Repeat steps 1 through 3 with each finger. 5. Switch hands and repeat steps 1 through 4, even if only one hand is sore. Follow-up care is a edwards part of your treatment and safety. Be sure to make and go to all appointments, and call your doctor if you are having problems. It's also a good idea to know your test results and keep a list of the medicines you take. Where can you learn more? Scan the [employer] code or Visit our [employer] information library at [email or web address]/ You can also view health information on [employer], your personal patient account. Log in or sign up today. Enter E040 in the search box to learn more about Hand Arthritis: Exercises. Current as of: April 25, 2021?Content Version: 13.1 ?? [employer]. Care instructions adapted under license by [facility]. If you have questions about a medical condition or this instruction, always ask your healthcare professional. [employer] disclaims any warranty or liability for your use of this information. documented in this encounter Progress Notes Andrzej Mobley MD - 10/29/2021 2:00 PM EST Chief rheumatologic issue: Ruby Marcum is a 76 y.o. 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 HPI: This is a scheduled in person follow up appointment. ?Please refer to my initial note of consultation for details of presentation. To review: ?Ruby's symptoms initially appeared to be suggestive of an inflammatory process, and the location of her discomfort was consistent with PMR, though without GCA sxs. ?Physical examination was entirely benign without any evidence of inflammation or connective tissue disease. ?Serologic profile was notable for mildly elevated inflammatory markers and a + ORQUIDEA in a nonspecific pattern and no associated specific antibody testing or evidence of coagulopathy. ?Her sxs were steroid responsive. ?I did not find evidence of RA or SLE. ?This did not appear to be a post viral inflammatory arthritis. ?She was started on HCQ. ? 6- Interval events: ?3 or 4 episodes of Raynaud's ?Right gluteal pain in December. Tried PT for 4 weeks. Had dry needling. ?Did pool therapy in [place]. Rapid improvement. ?More hot flashes. 09-29-19 Interval events: Was experiencing pain throughout the body for months. Martelle like her internal thermostat was dysregulated. Martelle like she was getting inflamed. Hot flashes. Did not take temperature No joint swelling.. Burning and aching pain. Started taking ibuprofen at higher dose. Had flu vaccine. No ill contacts. Started Wellbutrin last Thursday. 05/10/2020 interval events: Overall feeling much better except on rainy days. She has not had any of the burning type of pain she described at the time of her last appointment with me. She is reporting some discomfort on the outside of the right leg from the ileum to the lateral aspect of the knee consistent with iliotibial band pain. She is taking hydroxychloroquine 400 mg daily. No new medications. No interval health events. She is having virtual services with her latter day 11-09-2020 Interval events: She has been diagnosed with ADHD. She has been placed on Adderall 5 mg. She has noted some hair thinning. Some patchiness. No new medications. She is taking hydroxychloroquine 400 mg daily. She is up-to-date with yearly eye examinations. She is also taking ibuprofen 400 mg in the morning and 200 mg in the evening. 05/03/2021 interval events: Ruby has achieved a 20 pound weight loss over 5 months by using NOOM. She is currently taking hydroxychloroquine 400 mg daily. Joint is feeling better. She is taking ibuprofen 400 mg in the morning and another 200 mg in the evening. She is reporting some right leg numbness which appears to be superficial and in the upper part of the leg in the lateral aspect of the thigh 10-29-2021 Interval events: Ruby has achieved a 40 pound weight loss over 11 months by using NOOM. She is currently taking hydroxychloroquine 300 mg daily. Alternating. Joints feeling better. She is taking ibuprofen 400 mg in the morning and another 200 mg in the evening. She is reporting some right leg numbness which appears to be superficial and in the upper part of the leg in the lateral aspect of the thigh Allergies include: Sulfa (sulfonamide antibiotics) Review of Systems: Has been on HCQ for UCTD Now on 400 mg daily. Started 09-08-16 No rashes. No joint swelling. Today she is reporting some right upper leg paresthesias not associated with any weakness No inflammatory eye problems. Up to date with retinal monitoring. Has yearly examinations. Sees Dr. Santoyo at [facility] No chest pain or dyspnea. No sicca sxs Current Outpatient Medications Medication Sig Dispense Refill ??? aspirin EC 81 mg Tablet, Delayed Release (E.C.) Daily. ??? buPROPion SR (Wellbutrin SR) 150 mg tablet sustained-release 12 hr TAKE ONE TABLET BY MOUTH EVERY MORNING CONTINUE HIGHER DOSE ??? Magnesium Oxide 500 mg Tablet Daily. ??? cholecalciferol, Vitamin D3, (Vitamin D3) 1,000 unit Tablet Take 1,000 Units by mouth Daily. ??? MAGNESIUM ORAL Take by mouth. ??? biotin 1 mg Capsule 5,000 mcg. ??? fluticasone propionate (Flonase Allergy Relief) 50 mcg/actuation [place], Suspension Flonase Allergy Relief 50 mcg/actuation nasal spray,suspension SPRAY 1 - 2 SPRAYS (50 - 100 MCG) IN EACH NOSTRIL BY INTRANASAL ROUTEONCE DAILY NEEDED ??? calcium carbonate-vitamin D3 1,000 mg(2,500 mg)-800 unit Tablet calcium carbonate-vitamin D3 500- 400 one BID ??? baclofen (Lioresal) 10 mg Tablet Every 12 hours. ??? dextroamphetamine-amphetamine (Adderall) 5 mg Tablet TAKE ONE TABLET BY MOUTH TWICE A DAY TAKE DOSES AT LEAST 4 6 HOURS APART ??? diazePAM (Valium) 5 mg Tablet Daily. ??? loratadine (Claritin) 10 mg Tablet Every 12 hours. ??? ibuprofen (Advil;Motrin) 200 mg Tablet ibuprofen 200 mg tablet TAKE 1-2 TABLET BY ORAL ROUTE EVERY 6 HOURS NEEDED WITH FOOD ??? hydrOXYchloroQUINE (Plaquenil) 200 mg Tablet Take 1 tablet by mouth 2 times daily for 90 days. Indications: rheumatoid arthritis 180 tablet 3 ??? predniSONE (DELTASONE) 5 mg Tablet Take 10 mg by mouth 2 times daily. ??? DILTiazem (CARDIZEM) 30 mg Tablet Take 30 mg by mouth as needed (HR 120+). ??? gabapentin (NEURONTIN) 100 mg Capsule Take 1 capsule by mouth 3 times daily. (Patient not taking: Reported on 11/09/2020) 180 capsule 3 Allergies Allergen Reactions ??? Sulfa (Sulfonamide Antibiotics) Hives Swelling Physical Exam: BP 138/68 Pulse 86 Temp 36.4 ??C (97.6 ??F) (Temporal) Resp 16 Ht 152.4 cm (5') Wt 65.9 kg(145 lb 3.2 oz) Comment: weighed at home SpO2 100% BMI 28.36 kg/m? General appearance and movement: alert, nontoxic, no distress, ? HEENT: anicteric sclerae, conjunctivae clear; wearing facial covering ? Heart: regular rate and rhythm ? Lungs: clear to auscultation, no rales, rubs, or wheezes ? Skin: no rash ? Vascular: 2+ pulses in wrists ? Hands: no synovitis ? Wrists: no synovial swelling or tenderness ? Elbows: no effusions or nodules, full flexion/extension, pronation and supination ? Shoulders: full range of motion in flexion, extension, internal and external rotation Neurologic examination: Normal gait. Cranial nerves II through XII intact ? Labs: ? 01-02-16: creatinine 0.8, CRP 0.72, CBC normal, ESR 31, RF neg, ORQUIDEA 1:160 diffuse and speckled ? Diagnostic imaging:. Latest known visit with results is: Historical Results Only on 08/28/2016 Component Date Value ??? SED RATE - [facility] 08/28/2016 31* ??? C-Reactive Protein 08/28/2016 7.20* Assessment: 1. Seronegative rheumatoid arthritis: Initial presentation appeared to be polymyalgia rheumatica without complications of giant cell arteritis. Subsequently diagnosis has evolved into seronegative rheumatoid arthritis. She is tolerating hydroxychloroquine therapy at 300 mg daily without adverse drug re actions. She is up to date with eye examinations.. She is not reporting any small joint swelling or dactylitis. Her right upper leg pain is most consistent with iliotibial band syndrome and possibly meralgia paresthetica. There are no extra-articular manifestations of an inflammatory connective tissuedisease. I do not think that there is an indication to augment anti-inflammatory or immunosuppressive therapy. Plan: Continue hydroxychloroquine 300 mg daily. Divided 200 mg twice daily. Please note that this note was completed with the assistance of voice recognition software. As result unintentional business administration instructor errors and/or typographical mistakes are possible. If you notice errorsplease bring them to my attention. If any area requires explanation or clarification please do not he sitate to contact me. 36 minutes total spent on this visit including precharting, [id number] interaction, discussion of iliotibial band syndrome and meralgia paresthetica and documentation. documented in this encounter Plan of Treatment Upcoming Encounters Date Type Specialty Care Team Description 08/05/2022 Office Visit Dermatology Bassam Foster MD [facility] [address] [place], [place] [address] (Wo rk) documented as of this encounter Visit Diagnoses Diagnosis Seronegative rheumatoid arthritis Rheumatoid arthritis documented in this encounter Care Teams Leather Splitter Relationship Specialty Start Date End Date Blanca Busch PA PCP - General Family Medicine 07/04/21 [address] [place] [address] documented as of this encounter
--- OUTSIDE RECORDS SUMMARY | 2022-06-13 00:29 | XMS_ITS | Encounter Summary ---
:1945 Author Organization [facility] [place] [address] Care Team Providers Name Role Phone Blanca Busch Primary Care Provider Encounter Details Date Type Department Care Team Description 10/15/2021 Office Visit Dermatology at [facility] [address] MD [address] [place] [address] [facility] [place], [place] [address] Social History Tobacco Use Types Packs/Day Years Used Date Former Smoker Cigarettes Quit: 1969 Smokeless Tobacco: Never Used Alcohol Use Standard Drinks/Week Comments No 0 (1 standard drink = 0.6 oz pure alcoho l) Sex Assigned at Date Recorded Female 10/14/2021 12:34 PM EST documented as of this encounter Progress Notes Bassam Foster MD - 10/15/2021 1:45 PM EST Images from the original note were not included. DEPARTMENT OF DERMATOLOGY Medical Dermatology Clinic Provider: Bassam Foster MD Patient's preferred name Ruby Preferred contact method for results [x]?Phone []?myD-H []?Letter [phone] Detailed phone message OK? Yes ?? Past [...] family history N Social History Lives in [facility] History of Present Illness: Ruby Marcum is a 76 y.o. Patient returns to clinic today for 6 week LPP follow up. She is currently using topical minoxidil solution and clobetasol solution. States today she, she notes that she is getting some hair growth on the forehead. Last visit at Dermatology: 09/03/2021 Last visit with this provider: 09/03/2021 Medications: Reviewed in eD-H Allergies: Reviewed in eD-H Skin Examination: Focused skin examination of the scalp was normal with the exception of the findings below. Assessment/Plan # Lichen Planopilaris, Significant improvement - some areas of erythema on the scalp with perifollicular scale, mild hair loss across the vertex of the scalp with regrowth on hair line. - continue OTC Topical Minoxidil solution 5% QD - continue Rx: clobetasol solution - apply to the scalp twice daily every other day - Patient is already taking plaquenil daily for undifferentiated connective tissue disease. Discussed that given significant improvement. No further treatment required at present Figure 1 Other: ??? N/A RTC: 2 months for LPP follow up []Note routed to secretary administrative assistant []Recall placed in scheduling system [x]Appointment scheduled at checkout Scribe attestation: Leslee Barrera [facility] and Krystin Chong [facility] have performed the documentation for this encounter in the presence of and acting as a scribe for Bassam Foster MD. I performed the above scribed service and agree with the accuracy of the documentation in this encounter. Reviewed and signed by: Bassam Foster MD Dermatology [facility] documented in this encounter Plan of Treatment Upcoming Encounters Date Type Specialty Care Team Description 08/05/2022 Office Visit Dermatology Bassam Foster MD [facility] [address] [place] [address] (Wo rk) documented as of this encounter Visit Diagnoses Diagnosis Lichen planopilaris Lichen planus documented in this encounter Care Teams Controls Project Engineer Relationship Specialty Start Date End Date Blanca Busch PA PCP - General Family Medicine 07/04/21 [address] [place] [address] documented as of this encounter
--- OUTSIDE RECORDS SUMMARY | 2022-06-13 00:29 | XMS_ITS | Encounter Summary ---
:1945 Author Organization [facility] [place] [address] Care Team Providers Name Role Phone Madelyn Crouch MD Primary Care Provider Reason for Referral Diagnostic Test (Routine) - Closed Specialty Diagnoses / Procedures Referred By Contact Refer red To Contact Radiology Diagnoses Radiculopathy of lumbosacral region Amador Gan MD [facility] Rad Mri Procedures MRI Lumbar Spine wo Contrast (Generic) [facility] [place] [address] [address] [address] [place] [address] Referral ID Status Reason Start Date Expiration Date Visits V isits Requested Authorized [id number] Closed Specialty 08/01/2016 08/01/2017 1 1 Service Requested Reason for Visit Diagnostic Test (Routine) - Closed Specialty Diagnoses / Procedures Referred By Contact Refer red To Contact Radiology Diagnoses Radiculopathy of lumbosacral region Amador Gan MD [facility] Rad Mri Procedures MRI Lumbar Spine wo Contrast (Generic) [facility] [place] [address] [address] [address] [place] [address] Referral ID Status Reason Start Date Expiration Date Visits V isits Requested Authorized [id number] Closed Specialty 08/01/2016 08/01/2017 1 1 Service Requested Encounter Details Date Type Department Care Team Description 09/10/2016 Hospital Encounter MRI at [facility] [place]via, Radiculopathy of [facility] Amador [place] MD [address]umb[address] [place] [address] Neurology [phone] [place] [address] Social History Tobacco Use Types Packs/Day Years Used Date Former Smoker Cigarettes Quit: 1969 Smokeless Tobacco: Never Used Alcohol Use Standard Drinks/Week Comments No 0 (1 standard drink = 0.6 oz pure alcoho l) Sex Assigned at Date Recorded Female 10/14/2021 12:34 PM EST documented as of this encounter Medications at Time of Discharge Medication Sig Dispensed Refills Start Date End Date hydroxychloroquine Take 200 mg by 0 09/10/2016 (PLAQUENIL) 200 mg Tablet mouth daily. predniSONE (DELTASONE) 5 mg Take 10 mg by 0 09/0912/16/2021 Tablet mouth 2 times daily. apixaban (ELIQUIS) 5 mg Take 5 mg by 0 11/12/2020 Tablet mouth 2 times daily. DILTiazem (CARDIZEM) 30 mg Take 30 mg by 0 05/03/2021 Tablet mouth as needed (HR 120+). gabapentin (NEURONTIN) 100 Take 1 capsule 180 capsule 3 04/201605/03/2021 mg Capsule by mouth 3 times daily. documented as of this encounter Plan of Treatment Upcoming Encounters Date Type Specialty Care Team Description 08/05/2022 Office Visit Dermatology Bassam Foster MD [facility] ER [address] [place], [place] [address] (Wo rk) documented as of this encounter Procedures Procedure Name Priority Date/Time Associated Diagnosis Comme nts MRI LUMBAR SPINE Routine 09/10/2016 12:49 Radiculopathy of Res ults for this WITHOUT CONTRAST PM EST lumbosacral region proce dure are in the results section. documented in this encounter Results MRI Lumbar Spine wo [...] in context of the clinical situation (Re nevin Ross et al, Spine 2001). Findings: (Prevalence in [...] TECHNIQUE: MR of the lumbar spine perfor [facility] without the use of intravenous contrast. COMPARISON: [...] in context of the clinical situation (Re franky- Vandana et al, Spine 2001). Findings: (Prevalence in [...] unspecified documented in this encounter Care Teams Underwater Trapper Relationship Specialty Start Date End Date Madelyn Crouch MD PCP - General Family Medicine 09/10/16 07/20/18 [address] [place] [address] documented as of this encounter
--- OUTSIDE RECORDS SUMMARY | 2022-06-13 00:30 | XMS_ITS | Encounter Summary ---
:1945 Author Organization [facility] Address [address] [place] [address] Care Team Providers Name Role Phone Roberta Jansen Primary Care Provider [phone] Encounter Details Date Type Department Care Team Description 02/27/2022 Lab Requisition [facility] Outr Resulting Lab, Pathology & Laboratory Provider [facility] [address], [place] [address] Social History Tobacco Use Types Packs/Day Years Used Date Former Smoker Smokeless Tobacco: Never Used Sex Assigned at Date Recorded Not on file documented as of this encounter Functional Status Functional Status Response Date of Assessment Because of a physical, mental, or emotional condition, No 05/10/2020 does this person have difficulty doing errands alone such as visiting a doctor's office or shopping? Cognitive Status Response Date of Assessment Because of a physical, mental, or emotional condition, No 05/10/2020 does this person have serious difficulty concentrating, remembering, or making decisions? documented as of this encounter Plan of Treatment Not on filedocumented as of this encounter Procedures Procedure Name Priority Date/Time Associated Diagnosis Comme nts COVID-19 TEST [facility] Today 02/26/2022 19:30 LAB PCR EDT COVID-19 TESTING Routine 02/26/2022 19:30 Results for this EDT procedure are i n the results section. documented in this encounter Results COVID-19 TEST [facility] PCR (02/26/2022 19:30 EDT) Specimen Swab Performing Organization Address City/State/ZIP Code Phon e Number [facility] [address] [place] [address] SERVICES COVID-19 TESTING (02/26/2022 19:30 EDT) COVID-19 rt-PCR Negative Negative [facility] Result Comment: [facility] This test has not been FDA c leared or approved. This test has been authorized by FDA under an EUA for use by authorized laboratories. This test has been authorized only for detection of nucleic acid fro SERVICES m 2019-nCoV, not for any oth er viruses or pathogens. This test is only authorized for the duration of the declaration that circumstances exist justifying the authorization of emergency use of in vitro d iagnostic tests for detectio n and/or diagnosis of 2019-nCoV under section 564(b)(1) of Act, 21 U.S.C ?? 360bbb-3(b) (1), unless the authorization is terminated or revoked sooner. Negative results do not prec lude 2019-nCoV infection and should not be used as the sole basis for treatment or other patient management decisions. Negative results must be combined with clinical observa tions, patient history, and epidemiological informatio n. Testing was performed using the ana SARS-CoV-2 assay ([employer] on the Ana 6800 System Performing Lab Ana [address] [facility] Lab [facility] SERVICES Specimen Swab Performing Organization Address City/State/ZIP Code Phon e Number [facility] [address] [place] [address] SERVICES documented in this encounter Visit Diagnoses Not on filedocumented in this encounter Care Teams Dry Kiln Operator Relationship Specialty Start Date End Date Roberta Jansen DO PCP - General 05/01/20 [address] [place], [place] [address] documented as of this encounter
--- OUTSIDE RECORDS SUMMARY | 2022-06-13 00:30 | XMS_ITS | Encounter Summary ---
:1945 Author Organization [facility] Address [address] [place] [address] Care Team Providers Name Role Phone Unknown, Provider Primary Care Provider Unknown, Provider Unavailable Encounter Details Date Type Department Care Team Description 08/28/2016 Historical Results [facility] - Nguyen Mobley MD Only [facility] - [facility] [address] [place] [address] Rheumatology [phone] [place] [address] [place] [id number] Social History Tobacco Use Types Packs/Day Years Used Date Never Assessed Sex Assigned at Date Recorded Not on file documented as of this encounter Plan of Treatment Not on filedocumented as of this encounter Procedures Procedure Name Priority Date/Time Associated Comments Diagnosis COMPLETE BLOOD COUNT Routine 08/28/2016 15:33 Res ults for this WITH DIFFERENTIAL EDT procedure are in (AUTO) the results section. documented in this encounter Results (ABNORMAL) COMPLETE BLOOD COUNT WITH DIFFERENTIAL (AUTO) (08/28/2016 15:33 EDT) Pathologist Sig nature ABSOLUTE NEUTROPHIL 4.24 1.7 - 7.0 [facility] MED COUN - CV 10e3/ul [facility] # - [facility] 0.07 0.0 - 0.3 [facility] MED 10e3/uL [facility] % - [facility] 1 0 - 2 % [facility] EOS # - CV 0.19 0.05 - 0.5 [facility] MED 10e3/uL [facility] EOS % - CV 2 0 - 5 % [facility] GRAN % - [facility] 50 40 - 80 % [facility] HEMATOCRIT - [facility] 39.3 34.0 - 47.0 % [facility] HEMOGLOBIN - [facility] 13.1 11.2 - 15.7 [facility] g/dl [place] [facility] IG# - [facility] 0.01 0 - 0.07 [place] [address]/[facility] LAB IG% - [facility] 0.1 0 - 0.9 % [facility] LYMPH # - [facility] 3.46 (H) 0.9 - 2.9 [facility] 10e3/uL [place] [facility] LYMPH% - [facility] 41 (H) 20 - 40 % [facility] MEAN CORPUSCULAR HGB 31.0 26 - 34 pg [facility] MEAN CORPUSCULAR HGB 33.3 31 - 36 g/dL [facility] CONC [facility] LAB MEAN CELL VOLUME - 93.1 77 - 100 fl [facility] MONO # - [facility] 0.58 0.3 - 0.9 [facility] 10e3/[facility] LAB MONO% - [facility] 7 0 - 12 % [facility] PLATELET COUNT 235 150 - 400 [facility] 10e3[facility] LAB RED BLOOD COUNT - 4.22 3.8 - 5.2 [facility] 10e6/ul [place] [facility] RED CELL DISTRI WIDTH 12.9 11.8 - 15.6 % [facility] ME D - [facility] LAB WHITE BLOOD COUNT - 8.6 3.5 - 10.5 [place] [id number]/[facility] LAB Specimen Performing Organization Address City/State/[facility] Code Phon e Number [facility] [address] [place], [place] [id number] [place] [address] LAB documented in this encounter Visit Diagnoses Not on filedocumented in this encounter Care Teams Pile Header Relationship Specialty Start Date End Date Unknown, Provider, PCP - General 01/24/16 09/28/19 Unknown, ProviderMD 01/24/16 04/30/20 documented as of this encounter
--- OUTSIDE RECORDS SUMMARY | 2022-06-13 00:30 | XMS_ITS | Encounter Summary ---
:1945 Author Organization [facility] Address [address] [place] [address] Care Team Providers Name Role Phone Roberta Jansen Primary Care Provider [phone] Reason for Visit Reason Comments Follow-up UCTD; feels well with no kar n right now. A little stiff when it rains. Encounter Details Date Type Department Care Team Description 05/10/2020 Office Visit [facility] - Andrzej Mobley Undi fferentiated [facility] Rheumatology connective tissue disease [address] [facility] ([facility]) (Primary Dx) [place] [address] oc [phone] [place] [address] [place] [address] Social History Tobacco Use Types Packs/Day Years Used Date Former Smoker Smokeless Tobacco: Never Used Sex Assigned at Date Recorded Not on file documented as of this encounter Last Filed Vital Signs Vital Sign Reading Time Taken Comments Blood Pressure 128/74 05/10/2020 1410 EDT Pulse 68 05/10/2020 1410 EDT Temperature - - Respiratory Rate - - Oxygen Saturation - - Inhaled Oxygen Concentration - - Weight 79.4 kg (175 lb) 05/10/2020 1410 EDT Height 152.4 cm (5') 05/10/2020 1410 EDT Body Mass Index 34.18 05/10/2020 1410 EDT documented in this encounter Functional Status Functional Status Response [...] making decisions? documented as of this encounter Patient Instructions Patient InstructionsAndrzej Mobley MD - 05/10/2020 14:00 EDT Images from the original note were not included. [facility] Patient Instructions Iliotibial Band Syndrome: Exercises Introduction Here are some examples of exercises for you to try. The exercises may be suggested for a condition or for rehabilitation. Start each exercise slowly. Ease off the exercises if you start to have pain. You will be told when to start these exercises and which ones will work best for you. How to do the exercises Iliotibial band stretch 1. Lean sideways against a wall. If you are not steady on your feet, hold on to a chair or counter. 2. Stand on the leg with the affected hip, with that leg close to the wall. Then cross your other leg in front of it. 3. Let your affected hip drop out to the side of your body and against the wall. Then lean away fromyour affected hip until you feel a stretch. 4. Hold the stretch for 15 to 30 seconds. 5. Repeat 2 to 4 times. Piriformis stretch 1. Lie on your back with your legs straight. 2. Lift your affected leg and bend your knee. With your opposite hand, reach across your body, and then gently pull your knee toward your opposite shoulder. 3. Hold the stretch for 15 to 30 seconds. 4. Repeat 2 to 4 times. Hamstring wall stretch 1. Lie on your back in a doorway, with your good leg through the open door. 2. Slide your affected leg up the wall to straighten your knee. You should feel a gentle stretch down the back of your leg. 1. Do not arch your back. 2. Do not bend either knee. 3. Keep one heel touching the floor and the other heel touching the wall. Do not point your toes. 3. Hold the stretch for at least 1 minute to begin. Then try to lengthen the time you hold the stretch to as long as 6 minutes. 4. Repeat 2 to 4 times. 5. If you do not have a place to do this exercise in a doorway, there is another way to do it: 6. Lie on your back, and bend the knee of your affected leg. 7. Loop a towel under the ball and toes of that foot, and hold the ends of the towel in your hands. 8. Straighten your knee, and slowly pull back on the towel. You should feel a gentle stretch down the back of your leg. 9. Hold the stretch for 15 to 30 seconds. Or even better, hold the stretch for 1 minute if you can. 10. Repeat 2 to 4 times. Follow-up care is a edwards part of your treatment and safety. Be sure to make and go to all appointments, and call your doctor if you are having problems. It's also a good idea to know your test results and keep a list of the medicines you take. Where can you learn more? Go to https://www.Selftrade.[employer]/Playroll or log into your [employer] account at https://enrich-in.Playroll.DokDok Enter P252 in the search box to learn more about Iliotibial Band Syndrome: Exercises. Current as of: April 20, 2019Content Version: 12.4 ?? [id number] [employer]. Care instructions adapted under license by [facility]. If you have questions about a medical condition or this instruction, always ask your healthcare professional. [employer] disclaims any warranty or liability for your use of this information. Continue hydroxychloroquine 400 mg daily. Work on iliotibial band exercises both stretches and strengthening exercises. If not better in 2 to 3 weeks please give me a call and we may consider an injection to enhance the process. Also remember to use heat before activities and then ice afterwards 20 minutes on and then 20 minutes off for several rotations. documented in this encounter Progress Notes Andrzej Mobley MD - 05/10/2020 1400 EDT [facility] Rheumatology Chief Complaint Patient presents with ??? Follow-up UCTD; feels well with no pain right now. A little stiff when it rains. HPI: This is a scheduled follow up appointment. ?Please refer to my [...] specific antibody testing or evidence of coagulopathy. I wanted to try a course of daily NSAID while waiting for sendout labs, but she is on Eliquis. ?Her sxs were steroid responsive. ?I did not find evidence of RA or SLE. ?This did not appear to be a post viral inflammatory arthritis. ?She was started on HCQ. ?04-22-19 Interval events: ?3 or 4 episodes of Raynaud's ?Right gluteal pain in December. Tried PT for 4 weeks. had dry needling. ?Did pool therapy in [place]. Rapid improvement. ?More hot flashes. 09-29-19 Interval events: Was experiencing pain throughout the body for months. Fisher like her internal thermostat was dysregulated. Fisher like she was getting inflamed. Hot flashes. Did not take Temp. No joint swelling. Everywhere but the joints. Burning and aching pain. Started taking ibuprofen [...] She is having virtual services with her restorationist Current Outpatient Medications: buPROPion (WELLBUTRIN XL) 150 mg XL tablet cholecalciferol, Vitamin D3, 1,000 unit tablet hydroxychloroquine (PLAQUENIL) 200 mg tablet ibuprofen (MOTRIN) 200 mg tablet loratadine (CLARITIN) 10 mg tablet LORazepam (ATIVAN) 0.5 mg tablet MAGNESIUM ORAL No current facility-administered medications for this visit. Allergies include: Sulfa (sulfonamide antibiotics) Review of Systems: Has been on HCQ for UCTD Now on 400 mg daily. Started 09-08-16 No rashes. No joint swelling. Right upper leg symptoms as described in HPI Hands [place]. No inflammatory eye problems. Up to date with retinal monitoring. Has yearly examinations. Scheduled for this Summer. Sees Dr. Santoyo at [facility] No chest pain or dyspnea. No sicca sxs. Recent lab tests done Physical Examination: BP 128/74 (BP Cuff Location: Left arm, BP Cuff Sizes: Adult, regular) Pulse 68 Ht 152.4 cm (60) Wt 79.4 kg (175 lb) BMI 34.18 kg/m? General appearance and movement: alert, nontoxic, [...] in flexion, extension, internal and external rotation ? Labs: ? 01-02-16: creatinine 0.8, CRP 0.72, CBC normal, ESR 31, RF neg, ORQUIDEA 1:160 diffuse and speckled ? Diagnostic imaging:. Labs: No visits with results within 6 Month(s) from this visit. Latest known visit with results is: Historical Results Only on 08/28/2016 Component Date Value ??? SED RATE - [facility] 08/28/2016 31* ??? C-Reactive Protein 08/28/2016 7.20* Diagnosis / Assessment: 1. 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 Subsequently diagnosis evolved into undifferentiated connective tissue disease. She is tolerating hydroxychloroquine therapy at 400 mg daily without adverse drug reactions. She is up to date with eye examinations. The myopathic and hyperesthetic symptoms she described at the last appointment have completely resolved. She is not reporting any small joint swelling or dactylitis. Her right upper leg pain is most consistent with iliotibial band syndrome, a soft tissue problem which is very common. I recommended trying not to sleep on that side. I also gave her a sheet of stretching and strengthening exercises with explanations on duration and optimal use of these exercises. Also discussed the importance of caloric therapy using heat to stimulate blood flow and loosen soft tissues prior to activity and then using ice afterwards to calm downany inflammation. There are no extra-articular manifestations of an inflammatory connective tissue disease. I do not think that there is an indication to augment anti-inflammatory or immunosuppressive therapy. Recommendations/Evaluation: Total rtrv-ad-qurd time: 25 minutes, >50% spent counseling on above issues. Andrzej Mobley MD documented in this encounter Plan of Treatment Not on filedocumented as of this encounter Visit Diagnoses Diagnosis Undifferentiated connective tissue disea se (HCC-CMS) (HCC) - Primary Unspecified diffuse connective tissue di sease documented in this encounter Discontinued Medications Medication Sig Discontinue Reason Start Date End Date BIOTIN ORAL Take by mouth. Error 05/10/2020 documented as of this encounter Care Teams Beef Pluck Trimmer Relationship Specialty Start Date End Date Roberta Jansen DO PCP - General 05/01/[address] [place] [address] documented as of this encounter
--- OUTSIDE RECORDS SUMMARY | 2022-06-13 00:30 | XMS_ITS | Encounter Summary ---
:1945 Author Organization [facility] Address [address] [place] [address] Care Team Providers Name Role Phone Unavailable Primary Care Provider Unavailable Encounter Details Date Type Department Care Team Description 10/11/2012 Results Only [facility] Maryellen Ziegler PA Laboratory Services - [address] [place] [address] [place], [place] [address] [phone] Social History Tobacco Use Types Packs/Day Years Used Date Never Assessed Sex Assigned at Date Recorded Not on file documented as of this encounter Plan of Treatment Not on filedocumented as of this encounter Procedures Procedure Name Priority Date/Time Associated Diagnosis Comme nts PAP TEST- RESULT Routine 10/11/2012 0:00 EST Resu lts for this ONLY procedure are i n the results section. documented in this encounter Results PAP TEST- RESULT ONLY (10/11/2012 0:00 EST) Pathology Report: CYTOPATHOLOGY REPORT [facility] Reports generated via electronic interface contain blake ginal data; however they are lacking the format of the original re port. Caution should be taken when reading/interpreting unfo rmatted reports. Name: ? RUBY MARCUM N ? Accession #: ? [id number] ? : ? 1945 (Age: 67) ??F ?Collect Da te: ? 10/11/2012 ? Location: ? [facility] ? Receive Date: ? 012 ? Provider: POPEYE CASAREZ Copy to: ? Final Report SPECIMEN ADEQUACY ? Satisfactory for Evaluation - transformation zone component present GENERAL CATEGORIZATION ? Negative for Intraepithelial Lesion or Malignan cy ?? Last Menstrual Period: na Menstrual/ Status: ??Post Menopausal Specimen/Source: ??Pap Test, Cervix/Endocervix, ThinPr ep Imaging System with manual evaluation Document reviewed and electronically signed by: ? DANIELLA Rod(ASCP) ? Report ??Date: 10/20/2012 14:53 HPV with Pap Test ? Date Ordered: ? 10/20/2012 ? Status: ?? Signed Out ?Date Complete: ? 10/22/2012 ? By: ??S ystem Interface ? Date Reported: ? 10/22/2012 ? Interpretation RESULT: Negative for HPV. No E6 or E7 mRNA is detected from HPV types 16,18,31,3 3,35, 39,45,51,52,56,58,59,66, and 68 by tape controlled machine stitcher media chandni amplification. Comments Document reviewed and electronically signed by: ? System Interface ? Report date: 10/22/2012 By the signature above, the attending physician certif ies that he/she has personally conducted a gross and/or microscopic examin ation of the described specimens and rendered or confirmed the above diagnosi s. End of Report Specimen Performing Organization Address City/State/ZIP Code Phon e Number [facility] [address] [place] [address] SERVICES [facility] [address] [place] [address] documented in this encounter Visit Diagnoses Not on filedocumented in this encounter
--- OUTSIDE RECORDS SUMMARY | 2022-06-13 00:30 | XMS_ITS | Clinical Summary ---
:1945 Author Organization [facility] Address [address] [place] [address] Care Team Providers Name Role Phone Roberta Jansen Primary Care Provider [phone] Allergies Active Allergy Reactions Severity Noted Date Comments Sulfa (Sulfonamide Antibiotics) Hives 6 Swelling Medications Medication Sig Dispensed Refills Start Date End Date Status ibuprofen (MOTRIN) 200 mg Take by mouth 0 Active tablet every 6 hours as needed. MAGNESIUM ORAL Take by 0 Activ e mouth. loratadine (CLARITIN) 10 mg Take 20 mg by 0 Active tablet mouth daily. LORazepam (ATIVAN) 0.5 mg Take 0.5 mg 0 Active tablet by mouth as needed. cholecalciferol, Vitamin Take 1,000 0 Active D3, 1,000 unit tablet Units by mouth daily. buPROPion (WELLBUTRIN XL) Take 150 mg 0 Active 150 mg XL tablet by mouth every morning. hydrOXYchloroQUINE Take 2 Tabs 180 Tab 1 07/04/2020 Active (PLAQUENIL) 200 mg tablet by mouth daily. Active Problems Problem Noted Date Undifferentiated connective tissue disease ([facility]-CMS) 1 11/30/2018 Social History Tobacco Use Types Packs/Day Years Used Date Former Smoker Smokeless Tobacco: Never Used Sex Assigned at Date Recorded Not on file Last Filed Vital Signs Vital Sign Reading Time Taken Comments Blood Pressure 128/74 05/10/2020 1410 EDT Pulse 68 05/10/2020 1410 EDT Temperature - - Respiratory Rate - - Oxygen Saturation - - Inhaled Oxygen Concentration - - Weight 79.4 kg (175 lb) 05/10/2020 1410 EDT Height 152.4 cm (5') 05/10/2020 1410 EDT Body Mass Index 34.18 05/10/2020 1410 EDT Plan of Treatment Health Maintenance Due Date Last Done Comments Fall Risk Screening 05/10/2021 05/10/2020 Insurance Payer Benefit Plan / Subscriber ID Effective Phone Address T ype Group Dates MEDICARE MEDICARE A/B [id number] 2011-[address] [place] [address] GENERIC GENERIC [id number] 2019-Pr [phone] [address] Commer cial GL COMMERCIAL COMMERCIAL esent [id number] [place] [address] [facility]Family [facility] 1945 Ruby Marcum Personal/Family Self [address] (Home) [place] [address] [facility] Self [address] (Home) [place] [address] [facility]Family Self [address] (Home) [place] [address] [facility]Family Self [address] (Home) [place] [address] [facility]/Family Self [address] (Home) [place] [address] [facility]Family Self [address] (Home) [place] [address] Care Teams Brick Sorter Relationship Specialty Start Date End Date Roberta Jansen DO PCP - General 05/01/20 4 [facility] [place] [place] [address] (Qdtl)
--- OUTSIDE RECORDS SUMMARY | 2022-06-13 00:30 | XMS_ITS | Encounter Summary ---
:1945 Author Organization [facility] Address [address] [place] [address] Care Team Providers Name Role Phone Unknown, Provider Primary Care Provider Unknown, Provider Unavailable Encounter Details Date Type Department Care Team Description 08/28/2016 Historical Results [facility] - Nguyen Mobley MD Only [facility] [place] [facility] [place] [facility] [address] [place] [address] Rheumatology [phone] [place] [address] [place] [phone] Social History Tobacco Use Types Packs/Day Years Used Date Never Assessed Sex Assigned at Date Recorded Not on file documented as of this encounter Plan of Treatment Not on filedocumented as of this encounter Procedures Procedure Name Priority Date/Time Associated Diagnosis Comme nts C REACTIVE PROTEIN Routine 08/28/2016 15:33 Resul ts for this EDT procedure are i n the results section. C REACTIVE PROTEIN Routine 08/28/2016 15:33 Resul ts for this EDT procedure are i n the results section. documented in this encounter Results (ABNORMAL) C REACTIVE PROTEIN (08/28/2016 15:33 EDT) Pathologist Sig nature C-Reactive Protein 7.20 (H) 0.0 - 3.0 mg/L [facility] Specimen Performing Organization Address City/State/ZIP Code Phon e Number [facility] [address] [place] [address] [facility] (ABNORMAL) C REACTIVE PROTEIN (08/28/2016 15:33 EDT) Pathologist Sig nature SED RATE [place] [facility] [place] (H) 1 - 17 mm/hr [facility] Specimen Performing Organization Address City/State/ZIP Code Phon e Number [facility] [address] [place] [address] [facility] documented in this encounter Visit Diagnoses Not on filedocumented in this encounter Care Teams Best [employer] Jobs Relationship Specialty Start Date End Date Unknown, Provider, PCP - General 01/24/16 09/28/19 Unknown, ProviderMD 01/24/16 04/30/20 documented as of this encounter
--- OUTSIDE RECORDS SUMMARY | 2022-06-13 00:30 | XMS_ITS | Encounter Summary ---
:1945 Author Organization [facility] Address [address] [place] [address] Care Team Providers Name Role Phone Unknown, Provider Unavailable Reason for Visit Reason Comments Follow-up UCTD. Patient had blood work and a UA that was not covered by insurance and was wondering if there was a nyway to get coded differently to get covered. Encounter Details Date Type Department Care Team Description 09/29/2019 Office Visit [facility] - Andrzej Mobley Undi fferentiated [facility] Rheumatology connective tissue disease [address] [facility] ([facility]) (Primary Dx) [place] [address] ock [phone] [place] [address] [place] [phone] Social History Tobacco Use Types Packs/Day Years Used Date Former Smoker Smokeless Tobacco: Never Used Sex Assigned at Date Recorded Not on file documented as of this encounter Last Filed Vital Signs Vital Sign Reading Time Taken Comments Blood Pressure 122/62 09/29/2019 1405 EST Pulse 84 09/29/2019 1405 EST Temperature - - Respiratory Rate - - Oxygen Saturation - - Inhaled Oxygen Concentration - - Weight 81.3 kg (179 lb 3.2 oz) 09/29/2019 1405 EST Height 152.4 cm (5') 09/29/2019 1405 EST Body Mass Index 35 09/29/2019 1405 EST documented in this encounter Patient Instructions Patient InstructionsAndrzej Mobley MD - 09/29/2019 14:00 EST Images from the original note were not included. Start using full spectrum light in the morning and evening [facility] Patient Instructions Rotator Cuff: Exercises Introduction Here are some examples of exercises for you to try. The exercises may be suggested for a condition or for rehabilitation. Start each exercise slowly. Ease off the exercises if you start to have pain. You will be told when to start these exercises and which ones will work best for you. How to do the exercises Pendulum swing 1. Hold on to a table or the back of a chair with your good arm. Then bend forward a little and let your sore arm hang straight down. This exercise does not use the arm muscles. Rather, use your legs and your hips to create movement that makes your arm swing freely. 2. Use the movement from your hips and legs to guide the slightly swinging arm back and forth like apendulum (or elephant trunk). Then guide it in circles that start small (about the size of a dinner plate). Make the circles a bit larger each day, as your pain allows. 3. Do this exercise for 5 minutes, 5 to 7 times each day. 4. As you have less pain, try bending over a little farther to do this exercise. This will increase the amount of movement at your shoulder. Posterior stretching exercise 1. Hold the elbow of your injured arm with your other hand. 2. Use your hand to pull your injured arm gently up and across your body. You will feel a gentle stretch across the back of your injured shoulder. 3. Hold for at least 15 to 30 seconds. Then slowly lower your arm. 4. Repeat 2 to 4 times. Up-the-back stretch 1. Put your hand in your back pocket. Let it rest there to stretch your shoulder. 2. With your other hand, hold your injured arm (palm outward) behind your back by the wrist. Pull your arm up gently to stretch your shoulder. 3. Next, put a towel over your other shoulder. Put the hand of your injured arm behind your back. Now hold the back end of the towel. With the other hand, hold the front end of the towel in front of your body. Pull gently on the front end of the towel. This will bring your hand farther up your back tostretch your shoulder. Overhead stretch 1. Standing about an arm's length away, grasp onto a solid surface. You could use a countertop, a doorknob, or the back of a sturdy chair. 2. With your knees slightly bent, bend forward with your arms straight. Lower your upper body, and let your shoulders stretch. 3. As your shoulders are able to stretch farther, you may need to take a step or two backward. 4. Hold for at least 15 to 30 seconds. Then stand up and relax. If you had stepped back during your stretch, step forward so you can keep your hands on the solid surface. 5. Repeat 2 to 4 times. Shoulder flexion (lying down) 1. Lie on your back, holding a wand with both hands. Your palms should face down as you hold the wand. 2. Keeping your elbows straight, slowly raise your arms over your head. Raise them until you feel a stretch in your shoulders, upper back, and chest. 3. Hold for 15 to 30 seconds. 4. Repeat 2 to 4 times. Shoulder rotation (lying down) 1. Lie on your back. Hold a wand with both hands with your elbows bent and palms up. 2. Keep your elbows close to your body, and move the wand across your body toward the sore arm. 3. Hold for 8 to 12 seconds. 4. Repeat 2 to 4 times. Wall climbing (to the side) 1. Stand with your side to a wall so that your fingers can just touch it at an angle about 30 degrees toward the front of your body. 2. Walk the fingers of your injured arm up the wall as high as pain permits. Try not to shrug your shoulder up toward your ear as you move your arm up. 3. Hold that position for a count of at least 15 to 20. 4. Walk your fingers back down to the starting position. 5. Repeat at least 2 to 4 times. Try to reach higher each time. Wall climbing (to the front) 1. Face a wall, and stand so your fingers can just touch it. 2. Keeping your shoulder down, walk the fingers of your injured arm up the wall as high as pain permits. (Don't shrug your shoulder up toward your ear.) 3. Hold your arm in that position for at least 15 to 30 seconds. 4. Slowly walk your fingers back down to where you started. 5. Repeat at least 2 to 4 times. Try to reach higher each time. Shoulder blade squeeze 1. Stand with your arms at your sides, and squeeze your shoulder blades together. Do not raise your shoulders up as you squeeze. 2. Hold 6 seconds. 3. Repeat 8 to 12 times. Scapular exercise: Arm reach 1. Lie flat on your back. This exercise is a very slight motion that starts with your arms raised (elbows straight, arms straight). 2. From this position, reach higher toward the rhys or ceiling. Keep your elbows straight. All motionshould be from your shoulder blade only. 3. Relax your arms back to where you started. 4. Repeat 8 to 12 times. Arm raise to the side 1. Slowly raise your injured arm to the side, with your thumb facing up. Raise your arm 60 degrees at the most (shoulder level is 90 degrees). 2. Hold the position for 3 to 5 seconds. Then lower your arm back to your side. If you need to, bring your good arm across your body and place it under the elbow as you lower your injured arm. Use your good arm to keep your injured arm from dropping down too fast. 3. Repeat 8 to 12 times. 4. When you first start out, don't hold any extra weight in your hand. As you get stronger, you may use a 1-pound to 2-pound dumbbell or a small can of food. Shoulder flexor and extensor exercise 1. Push forward (flex): Stand facing a wall or doorjamb, about 6 inches or less back. Hold your injured arm against your body. Make a closed fist with your thumb on top. Then gently push your hand forward into the wall with about 25% to 50% of your strength. Don't let your body move backward as you push. Hold for about 6 seconds. Relax for a few seconds. Repeat 8 to 12 times. 2. Push backward (extend): Stand with your back flat against a wall. Your upper arm should be against the wall, with your elbow bent 90 degrees (your hand straight ahead). Push your elbow gently back against the wall with about 25% to 50% of your strength. Don't let your body move forward as you push.Hold for about 6 seconds. Relax for a few seconds. Repeat 8 to 12 times. Scapular exercise: Wall push-ups 1. Stand facing a wall, about 12 inches to [address] your hands on the wall at shoulder height. 3. Slowly bend your elbows and bring your face to the wall. Keep your back and hips straight. 4. Push back to where you started. 5. Repeat 8 to 12 times. 6. When you can do this exercise against a wall comfortably, you can try it against a counter. You can then slowly progress to the end of a couch, then to a sturdy chair, and finally to the floor. Scapular exercise: Retraction 1. Put the band around a solid object at about waist level. (A bedpost will work well.) Each hand should hold an end of the band. 2. With your elbows at your sides and bent to 90 degrees, pull the band back. Your shoulder blades should move toward each other. Then move your arms back where you started. 3. Repeat 8 to 12 times. 4. If you have good range of motion in your shoulders, try this exercise with your arms lifted out to the sides. Keep your elbows at a 90-degree angle. Raise the elastic band up to about shoulder level. Pull the band back to move your shoulder blades toward each other. Then move your arms back where you started. Internal rotator strengthening exercise 1. Start by tying a piece of elastic exercise material to a doorknob. You can use surgical tubing orThera-Band. 2. Stand or sit with your shoulder relaxed and your elbow bent 90 degrees. Your upper arm should rest comfortably against your side. Squeeze a rolled towel between your elbow and your body for comfort.This will help keep your arm at your side. 3. Hold one end of the elastic band in the hand of the painful arm. 4. Slowly rotate your forearm toward your body until it touches your belly. Slowly move it back to where you started. 5. Keep your elbow and upper arm firmly tucked against the towel roll or at your side. 6. Repeat 8 to 12 times. External rotator strengthening exercise 1. Start by tying a piece of elastic exercise material to a doorknob. You can use surgical tubing orThera-Band. (You may also hold one end of the band in each hand.) 2. Stand or sit with your shoulder relaxed and your elbow bent 90 degrees. Your upper arm should rest comfortably against your side. Squeeze a rolled towel between your elbow and your body for comfort.This will help keep your arm at your side. 3. Hold one end of the elastic band with the hand of the painful arm. 4. Start with your forearm across your belly. Slowly rotate the forearm out away from your body. Keep your elbow and upper arm tucked against the towel roll or the side of your body until you begin to feel tightness in your shoulder. Slowly move your arm back to where you started. 5. Repeat 8 to 12 times. Follow-up care is a edwards part of your treatment and safety. Be sure to make and go to all appointments, and call your doctor if you are having problems. It's also a good idea to know your test results and keep a list of the medicines you take. Where can you learn more? Go to https://www.Wicron.[employer]/Dwolla or log into your [employer] account at [email or web address].Dwolla.org Enter J005 in the search box to learn more about Rotator Cuff: Exercises. Current as of: April 20, 2019 Content Version: 12.2 ?? 7414-7098 Risk Ident. Care instructions adapted under license by [facility]. If you have questions about a medical condition or this instruction, always ask your healthcare professional. Risk Ident disclaims any warranty or liability for your use of this information. documented in this encounter Progress Notes Andrzej Mobley MD - 09/29/2019 1400 EST [facility] Rheumatology Chief Complaint Patient presents with ??? Follow-up UCTD HPI: This is a scheduled follow up [...] had dry needling. ?Did pool therapy in [place]. Rapid improvement. ?More hot flashes. 09-29-19 Interval events: Was experiencing pain throughout the body for months. [place] like her internal thermostat was dysregulated. [place] like she was getting inflamed. Hot flashes. Did not take Temp. No joint swelling. Everywhere but the joints. Burning and aching pain. Started taking ibuprofen at higher dose. Had flu vaccine. No ill contacts. Started Wellbutrin last Thursday. No current outpatient medications on file. No current facility-administered medications for this visit. Allergies include: Patient has no allergy information on record. No past medical history on file. No past surgical history on file. No family history on file. Review of Systems: Has been on HCQ for UCTD Now on 400 mg daily. Started 09-08-16 No rashes. No joint swelling. Hands OK. MSK sxs as noted in HPI. Labs drawn. CRP 5.4. Creatinine slightly increased to 1.09. Otherwise CBC and CMP in normal range. No inflammatory eye problems. Up to date with retinal monitoring. Has yearly examinations. Scheduled for this Summer. No chest pain or dyspnea. No sicca sxs. Recent lab tests done Physical Examination: BP 122/62 (BP Cuff Sizes: Adult, large) Pulse 84 Ht 152.4 cm (60) Wt 81.3 kg (179 lb 3.2 oz) BMI 35.00 kg/m? General appearance and movement: alert, nontoxic, no distress, ? HEENT: anicteric sclerae, conjunctivae clear ? Heart: regular rate and rhythm ? [...] 400 mg daily without adverse drug reactions. Recent symptoms prompting laboratory evaluation locally appeared to be more myofascial in origin. I was not able to discern any infectious or inflammatory etiology. Symptoms are now essentially resolved with use of low-dose nonsteroidal anti-inflammatory medication, initiation of Wellbutrin, and reduction of stressful situations. She is up to date with eye examinations. There are no extra-articular manifestations of an inflammatory connective tissue disease. I do not think that there is an indication to augment anti-inflammatory or immunosuppressive therapy. Recommendations/Evaluation: Total chtd-ht-jylv time: 25 minutes, >50% spent counseling on above issues. Andrzej Mobley MD documented in this encounter Plan of Treatment Not on filedocumented as of this encounter Visit Diagnoses Diagnosis Undifferentiated connective tissue disea se ([facility]) ([facility]) - Primary Unspecified diffuse connective tissue di sease documented in this encounter Historical Medications This list may reflect changes made after this encounter. Medication Sig Dispensed Refills Start Date End Date buPROPion (WELLBUTRIN XL) 150 Take 150 mg by 0 mg XL tablet mouth every morning. cholecalciferol, Vitamin D3, Take 1,000 Units 0 1,000 unit tablet by mouth daily. LORazepam (ATIVAN) 0.5 mg Take 0.5 mg by 0 tablet mouth as needed. loratadine (CLARITIN) 10 mg Take 20 mg by 0 tablet mouth daily. MAGNESIUM ORAL Take by mouth. 0 ibuprofen (MOTRIN) 200 mg Take by mouth 0 tablet every 6 hours as needed. hydroxychloroquine Take 400 mg by 0 (PLAQUENIL) 200 mg tablet mouth daily. BIOTIN ORAL Take by mouth. 0 0 added in this encounter Care Teams [employer] Reading Teacher Relationship Specialty Start Date End Date Unknown, Provider, 01/24/16 04/30/20 documented as of this encounter
--- OUTSIDE RECORDS SUMMARY | 2022-06-13 00:30 | XMS_ITS | Encounter Summary ---
:1945 Author Organization [facility] Address [address] [place] [address] Care Team Providers Name Role Phone Unknown, Provider Unavailable Reason for Visit Reason Onset Date Comments Medication Management 12/26/2019 Encounter Details Date Type Department Care Team Description 12/26/2019 Telephone [facility] - Stef Mobley MD Medication Management [facility] [place] [facility] [address] [place] [address] Rheumatology [phone] [place] [address] [place] [phone] (Wo rk) Social History Tobacco Use Types Packs/Day Years Used Date Former Smoker Smokeless Tobacco: Never Used Sex Assigned at Date Recorded Not on file documented as of this encounter Ordered Prescriptions Prescription Sig Dispensed Refills Start Date End Date hydroxychloroquine Take 2 Tabs by 180 Tab 1 12/26/2019 (PLAQUENIL) 200 mg tablet mouth daily. documented in this encounter Miscellaneous Notes Telephone Encounter - Yodit Monroe RN - 12/26/2019 1554 EST Last visit note reviewed and follow up noted. Refill sent as noted. elephone Encounter - Pham Chaudhari - 12/26/2019 1546 EST Requesting 3 month supply of HCQ [facility] documented in this encounter Plan of Treatment Not on filedocumented as of this encounter Visit Diagnoses Not on filedocumented in this encounter Discontinued Medications Medication Sig Discontinue Reason Start Date End Date hydroxychloroquine Take 400 mg by Reorder 020 (PLAQUENIL) 200 mg tablet mouth daily. documented as of this encounter Care Teams General Practitioner Relationship Specialty Start Date End Date Unknown, Provider, 01/24/16 04/30/20 documented as of this encounter
--- OUTSIDE RECORDS SUMMARY | 2022-06-13 00:30 | XMS_ITS | Encounter Summary ---
:1945 Author Organization [facility] Address [address] [place] [address] Care Team Providers Name Role Phone Roberta Jansen DO Primary Care Provider [phone] Reason for Visit Reason Onset Date Comments Medication Management 07/04/2020 Encounter Details Date Type Department Care Team Description 07/04/2020 Telephone [facility] - Stef Mobley MD Medication Management [facility] Rheumatology [facility] [address] [place] [address] Rheumatology [phone] [place] [address] [place] [address] (Wo rk) Social History Tobacco Use Types [...] making decisions? documented as of this encounter Ordered Prescriptions Prescription Sig Dispensed Refills Start Date End Date hydrOXYchloroQUINE (PLAQUENIL) Take 2 Tabs by 180 Tab 1 0 07/04/2020 200 mg tablet mouth daily. documented in this encounter Miscellaneous Notes Telephone Encounter - Yodit Monroe RN - 07/04/2020 5090 EDT Last visit note reviewed and follow up noted at recommended interval. Refil lsent as noted. elephone Encounter - Pham Chaudhari - 07/04/2020 1321 EDT Refill request HCQ 200mg [facility] pharmacy [facility] documented in this encounter Plan of Treatment Not on filedocumented as of this encounter Visit Diagnoses Not on filedocumented in this encounter Discontinued Medications Medication Sig Discontinue Reason Start Date End Date hydroxychloroquine Take 2 Tabs by Reorder 12/26/2019 020 (PLAQUENIL) 200 mg tablet mouth daily. documented as of this encounter Care Teams Water Meter Mechanic Relationship Specialty Start Date End Date Roberta Jansen DO PCP - General 05/01/20 [address] [place] [address] documented as of this encounter
--- OUTSIDE RECORDS SUMMARY | 2022-06-13 00:31 | XMS_ITS | Encounter Summary ---
:1945 Author Organization [facility] Address [address] [place] [address] Care Team Providers Name Role Phone Unavailable Primary Care Provider Unavailable Encounter Details Date Type Department Care Team Description 08/14/2003 Results Only [facility] - Aretha Winslow conversion MD [address] [facility] [address] [place] [address] [place] [address] (Wo rk) Social History Tobacco Use Types Packs/Day Years Used Date Never Assessed Sex Assigned at Date Recorded Not on file documented as of this encounter Plan of Treatment Not on filedocumented as of this encounter Procedures Procedure Name Priority Date/Time Associated Diagnosis Comme nts CYTOPATHOLOGY Routine 08/14/2003 0:00 EDT Results for this procedure are i n the results section . documented in this encounter Results CYTOPATHOLOGY (08/14/2003 0:00 EDT) Pathology Report: CYTOPATHOLOGY REPORT [facility] Reports generated via electronic interface contain blake ginal data; however they are lacking the format of the original re port. Caution should be taken when reading/interpreting unfo rmatted reports. Name: ? RUBY MARCUM ? Accession #: ? [id number] : ? 1945 (Age: 57) ??F ?Collect Date: ? 10/2 Location: ? [facility] ? Receive Date : ? 08/16/2003 Provider: ?VILMA CORDOVA MD Copy to: ? [facility] ?[address] ?[place] [address] ? Specimen/Source: ?ThinPrep Pap Test, Vagina/ Endocervix Last Menstrual Period: ? Menstrual/ Status: ? Menopausal ? SPECIMEN ADEQUACY ? Satisfactory for Evaluation - transformation zone component present GENERAL CATEGORIZATION ? Negative for Intraepithelial Lesion or Malignan cy ? Document reviewed and electronically signed by: ? DANIELLA Dale(ASCP) ? Report Date: ??08/22/2003 10:55 End of Report Specimen Performing Organization Address City/State/ZIP Code Phon e Number [facility] [address] [place] [address] [facility] [address] [place] [address] documented in this encounter Visit Diagnoses Not on filedocumented in this encounter
== END ==
PROVIDERS: PCP Physician Assistant Medical; Visit Provider Physician Assistant Medical
DX: R92.8 Other abnormal and inconclusive findings on diagnostic imaging of breast (principal)
CPT/HCPCS: 76642; 77062; 77066; G0279

== ENCOUNTER → 2022-07-18 00:05 | Outpatient (CLI) | payer MEDICARE, SELFPAY ==
--- NOTE | 2022-07-18 13:30 | DI.US_ITS ---
Exam(s) US RENAL EXAM: US RENAL CLINICAL HISTORY: ELEVATED CREATININE, R79.89. TECHNIQUE: Aguilar scale, color and spectral Doppler were used. COMPARISON: No exams were available for comparison FINDINGS: Renal size in cm: Right: Small 0.2 left: 9.7 Echogenicity: Normal Hydronephrosis: No Cyst or mass: No Nephrolithiasis: No Bladder:Normal. Both ureteral jets were visualized. Prevoid vol:427 Postvoid vol:14 IMPRESSION: Negative renal ultrasound. DATA REPOSITORY:
== END ==
PROVIDERS: PCP Physician Assistant Medical; Visit Provider Physician Assistant Medical
DX: R79.89 Other specified abnormal findings of blood chemistry (principal)
CPT/HCPCS: 76770

== ENCOUNTER 2023-07-22 03:07 | Outpatient (CLI) | payer MEDICARE, SELFPAY ==
[2023-07-22 08:48] LABS: Abs Immature Grans 0.01 10^3/uL (0.0-0.06); Absolute Basophil Count 0.09 10^3/uL (0.0-0.2); Absolute Eosinophil Count 0.16 10^3/uL (0.0-0.7); Absolute Lymphocyte Count 2.09 10^3/uL (1.2-3.4); Absolute Monocyte Count 0.51 10^3/uL (0.1-0.8); Absolute Neutrophil Count 2.79 10^3/uL (1.2-6.7); Basophils % 1.6; Eosinophils % 2.8; HCT 39.2 % (36.0-46.0); HGB 12.8 g/dL (11.2-15.7); Immature Grans % 0.2; MCHC 32.7 % (32.0-36.0); MCV 92 fL (80-95); Neutrophils % 49.4; Platelet Count 193 10^3/uL (130-400); RBC 4.27 10^6/uL (3.93-5.22); RDW 13.2 % (11.7-14.6); RDW-SD 44.2 fL; WBC 5.65 10^3/uL (4.4-10.8)
[2023-07-22 08:57] LABS: Hemoglobin A1C 5.6 % (<5.7)
[2023-07-22 09:28] LABS: ALT 31 U/L (14-59); AST 21 U/L (15-37); Albumin 3.5 g/dL (3.4-5.0); Alkaline Phosphatase 70 U/L (46-116); Anion Gap 6.1 mmol/L (3-11); BUN 18 mg/dL (7-18); Bilirubin, Total 0.4 mg/dL (0.2-1.0); CO2 27.9 mmol/L (21.0-32.0); CREATININE 1.1 mg/dL (0.55-1.02); Calcium 9.3 mg/dL (8.5-10.1); Calculated LDL 94 mg/dL (<100); Chloride 105 mmol/L (98-107); Cholesterol 192 mg/dL (<200); Estimated GFR 52.08 (mL/min/1.73m2); Glucose 102 mg/dL (74-106); HDL Cholesterol 79 mg/dL (40-60); Potassium 4.1 mmol/L (3.5-5.1); Sodium 139 mmol/L (136-145); TSH (W/Ref FT4) 1.76 uIU/mL (0.36-3.74); Total Protein 7.1 g/dL (6.4-8.2); Triglyceride 95 mg/dL (<150)
== END 2023-07-22 03:08 | disposition home or self-care (01) ==
LOC: LBO 03:07
PROVIDERS: PCP Physician Assistant Medical; Visit Provider Physician Assistant Medical
DX: M06.00 Rheumatoid arthritis without rheumatoid factor, unspecified site (principal); R73.03 Prediabetes; R79.89 Other specified abnormal findings of blood chemistry; Z86.59 Personal history of other mental and behavioral disorders; R53.83 Other fatigue
CPT/HCPCS: 36415; 80053; 80061; 83036; 84443; 85025

== ENCOUNTER → 2023-07-24 01:41 | Outpatient (CLI) | payer MEDICARE, SELFPAY ==
--- NOTE | 2023-07-24 10:55 | DI.DEXA_ITS ---
Exam(s) XR DEXA BONE DENSITY W/WO TOMMY EXAM: XR DEXA BONE DENSITY W/WO TOMMY CLINICAL HISTORY: OSTEOPOROSIS M81.0 RHEUMATOID ARTHRITIS M06.00 TECHNIQUE: COMPARISON: No exams were available for comparison FINDINGS: Lateral Spine Image: Unremarkable. No compression deformities identified. Left hip: Total T-Score: -0.3 Total Z-Score: 0.6 T- and Z-scores: Within normal limits. Lumbar Spine: Total T-Score: -0.3 Total Z-Score: 2.3 T- and Z-scores: Within normal limits. IMPRESSION: No evidence of osteoporosis.
== END ==
PROVIDERS: PCP Physician Assistant Medical; Visit Provider Internal Medicine
DX: Z13.820 Encounter for screening for osteoporosis
CPT/HCPCS: 77080

== ENCOUNTER → 2023-08-27 01:12 | Outpatient (CLI) | payer MEDICARE, SELFPAY ==
--- NOTE | 2023-08-27 | DI.MAMMO_ITS ---
Exam(s) MAMMO SCREENING EXAM: MAMMO SCREENING CLINICAL HISTORY: Screening, Z12.31 TECHNIQUE: Bilateral full field digital CC and MLO mammographic images were obtained with 3D tomosyn thesis and utilizing computer aided detection (CAD). COMPARISON: Available for comparison. FINDINGS: Masses/Architectural Distortion: There has been interval increase in size of a nodule in the posterio r outer left breast which now measures 8 mm. It has somewhat irregular borders. Microcalcifications: No suspicious pleomorphic-type are seen. Skin Thickening/Nipple Retraction: None. IMPRESSION: 1. Interval increase in size of a left breast nodule. Spot compression views requested for further e valuation. 2. Left breast ultrasound should also be obtained at that time. BI-RADS Category 0 - Assessment Incomplete: Need additional imaging evaluation Breast Density - Category B - Scattered areas of fibroglandular density Breast density category C or D implies that the patient has dense breast tissue. Dense breast tissue is very common and is not abnormal but dense breast tissue can make it harder to find cancer on a ma mmogram. Also, dense breast tissue may increase their breast cancer risk. This information about the result of the mammogram report was provided to the patient to raise their awareness. Use this report when you speak with the patient about their risks for breast cancer, which includes their family hist ory. At that time, you may recommend for more screening tests (Ultrasound or MRI) as they might be us eful based on their risk. A negative radiographic report should not delay biopsy if a dominant or clinically suspicious mass is present. Up to ten percent of cancers are not identified on mammography. A negative report may reinforce clinical impression. Adenosis and dense breasts may obscure an underlying neoplasm. False positive reports average 6 to 10%. Patient will receive a letter notifying them of these results.
== END ==
PROVIDERS: PCP Physician Assistant Medical; Visit Provider Physician Assistant Medical
DX: Z12.31 Encounter for screening mammogram for malignant neoplasm of breast (principal)
CPT/HCPCS: 77063; 77067

== ENCOUNTER → 2023-08-31 00:44 | Outpatient (CLI) | payer MEDICARE, SELFPAY ==
--- NOTE | 2023-08-31 | DI.US_ITS ---
Exam(s) MG MAMMO SCREEN CALL BACK UNI US BREAST LT COMPLETE EXAM: MG MAMMO SCREEN CALL BACK UNI and U/S breast LT complete CLINICAL HISTORY: LEFT BREAST NODULE R92.8 ABNL MAMMO. TECHNIQUE: Craniocaudal and mediolateral oblique Full Field Digital Mammography views of the left br east with Computer Aided Diagnosis followed by Tomosynthesis and left breast ultrasound. COMPARISON: Comparison is made with prior examinations. FINDINGS: Mammography/Tomosynthesis: Masses/Architectural Distortion: There is an irregular nodule again seen in the upper outer quadrant of the left breast on the additional views. No associated microcalcifications are seen. Microcalcifictions: No suspicious pleomorphic-type are seen. Skin Thickening/Nipple Retraction: None. Complete left breast US: Echotexture: Normal appearance of the glandular tissue. Shadowing: No suspicious foci. Cyst: None. Solid lesions: There is a 0.6 x 0.6 x 0.7 cm hypoechoic mass at the 1 o'clock position of the left br east 5 cm from the nipple. This corresponds to the mammographic abnormality. Ductal dilation: None. IMPRESSION: 1. 0.7 cm hypoechoic mass in the left breast. 2. Biopsy is recommended. 3. Findings were discussed with the patient and Zainab Graff on 08/31/2023 at 11:30 a.m.. Be BI-RADS Category 4 - Suspicious Abnormality: Biopsy should be considered Breast Density - Category B - Scattered areas of fibroglandular density Breast density Category C or D implies that the patient has dense breast tissue. Dense breast tissue can make it harder to find cancer on a mammogram. Dense breast tissue is also associated with an incr eased risk of breast cancer. This information about the result of the mammogram report was provided to the patient to raise their awareness. Use this report when you speak with the patient about their risks for breast cancer, which includes their family history. At that time, you may recommend additional screening tests (Ultrasoun d or MRI) as these tests may add significant information. A negative radiographic report should not delay biopsy if a dominant or clinically suspicious mass is present. Up to ten percent of cancers are not identified on mammography. A negative report may reinforce clinical impression. Adenosis and dense breasts may obscure an underlying neoplasm. False positive reports average 6 to 10%. Patient will receive a letter notifying them of these results.
== END ==
PROVIDERS: PCP Physician Assistant Medical; Visit Provider Physician Assistant Medical
DX: N63.21 Unspecified lump in the left breast, upper outer quadrant (principal); R92.8 Other abnormal and inconclusive findings on diagnostic imaging of breast; Z12.31 Encounter for screening mammogram for malignant neoplasm of breast
CPT/HCPCS: 76642; 77063; 77067

== ENCOUNTER 2024-01-20 13:41 | Outpatient (REF) | payer MEDICARE, SELFPAY | END 2024-01-20 13:42 | disposition home or self-care (01) | LOC: NCHCN 13:41 | PROVIDERS: PCP Physician Assistant Medical; Visit Provider Physician Assistant Medical | DX: F32.A Depression, unspecified (principal); F90.0 Attention-deficit hyperactivity disorder, predominantly inattentive type; F41.9 Anxiety disorder, unspecified | CPT/HCPCS: 82306 ==

== ENCOUNTER 2024-02-17 12:27 | Emergency (ER) | payer MEDICARE, SELFPAY ==
[2024-02-17 12:29] VITALS: BP 155/94; PULSE 78; RESP 16; TEMP 36.6; O2SAT 99
--- NOTE | 2024-02-17 12:48 | W.ED.GENAD ---
Discharge Plan Disposition Patient Disposition: Home Condition: Improving Discharge Details Chief Complaint: Headache Clinical Impression: Headache Primary Care Provider: Blanca Busch ED Provider: Moses Gaytan Home Meds and New Rx's Prescriptions: No Action ibuprofen 200 mg tablet 200 mg PO TID-QID PRN aspirin 81 mg tablet,delayed release (DR/EC) 81 mg PO DAILY magnesium 250 mg tablet 500 mg PO DAILY biotin 1,000 mcg tablet,chewable 1,000 mcg PO DAILY dextroamphetamine-amphetamine [Adderall] 5 mg tablet 5 mg PO BID PRN Hold Instructions: Home Medication placed on hold at Doctor's office Rx Instructions: administer doses at least 4-6 hours apart, takes usually qd but allowed to take bid. lorazepam 0.5 mg tablet 0.5 mg PO PRN MDD 2 Qty: 10 1RF docusate sodium [Stool Softener] 100 mg capsule 200 mg PO QHS PRN clobetasol 0.05 % solution 1 applic topical BID clotrimazole 1 % cream 1 applic topical DIRECTED minoxidil 2.5 mg tablet 2.5 mg PO DAILY diclofenac sodium [Voltaren Arthritis Pain] 1 % gel 2 g topical TID Rx Instructions: apply to single elbow, wrist or hand; for hand includes palm/fingers/back of hand letrozole PO DAILY calcium carbonate-vitamin D3 [Calcium 500 + D] 1 EACH tablet 1 ea PO BID bupropion HCl 150 mg tablet sustained-release 12 hr 150 mg PO QAM Qty: 90 3RF Rx Instructions: Continue higher dose hydroxychloroquine 200 mg tablet 200 mg PO DAILY Qty: 180 tobramycin-dexamethasone 0.3-0.1 % drops,suspension Patient Comments: INSTILL ONE DROP IN THE LEFT EYE THREE TIMES A DAY FOR 5 DAYS; SHAKE WELL BEFORE USING Discharge Instructions Instructions: General Headache (ED) Additional Instructions: Please follow-up with your primary care physician and eye doctor. Return to the emergency department for any worsening symptoms HPI General Date/Time Provider Initiated Documentation: 02/17/24 12:38. HPI Narrative: 78-year-old male presents 3 to 4 days after accidentally instilling a drop of her dog's otic medication in her left eye, prior to this event patient had sustained what sounds like a corneal injury from a paint splash and was started on human eyedrops by her eye doctor. Patient mistakingly picked up the bottle of her dogs otic drops. Had some burning in her eye she immediately irrigated the eye and felt better. Since then has had intermittent left brow pain sharp in nature brief without other symptomatology. Patient does not wear contact lenses. Patient denies any change in her vision. Related Data Home Medications Medication Instructions Recorded Confirmed calcium carbonate 500 mg-vitamin 1 ea PO BID 06/23/18 02/17/24 D3 10 mcg (400 unit) tablet (Calcium 500 + D) lorazepam 0.5 mg tablet 0.5 mg PO PRN anxiety, panic 07/16/18 02/17/24 episode #10 tabs aspirin 81 mg tablet,delayed 81 mg PO DAILY 11/26/18 02/17/24 release ibuprofen 200 mg tablet 200 mg PO TID-QID PRN 11/26/18 02/17/24 magnesium 250 mg tablet 500 mg PO DAILY 06/01/19 02/17/24 docusate sodium 100 mg capsule 200 mg PO QHS PRN 08/24/20 02/17/24 (Stool Softener) bupropion HCl 150 mg tablet,12 hr 150 mg PO QAM #90 tabs 11/29/20 02/17/24 sustained-release biotin 1,000 mcg chewable tablet 1,000 mcg PO DAILY 12/20/20 02/17/24 dextroamphetamine-amphetamine 5 mg 5 mg PO BID PRN 02/19/23 02/17/24 tablet (Adderall) hydroxychloroquine 200 mg tablet 200 mg PO DAILY #180 tabs 02/19/23 02/17/24 clobetasol 0.05 % scalp solution 1 applic topical BID 10/06/23 02/17/24 clotrimazole 1 % topical cream 1 applic topical DIRECTED 10/06/23 02/17/24 diclofenac sodium 1 % topical gel 2 g topical TID 10/06/23 02/17/24 (Voltaren Arthritis Pain) minoxidil 2.5 mg tablet 2.5 mg PO DAILY 10/06/23 02/17/24 letrozole PO DAILY 11/16/23 01/05/24 tobramycin 0.3 %-dexamethasone 0.1 drp 02/17/24 % eye drops,suspension Previous Rx's Medication Instructions Recorded lorazepam 0.5 mg tablet 0.5 mg PO PRN anxiety, panic 07/16/18 episode #10 tabs bupropion HCl 150 mg tablet,12 hr 150 mg PO QAM #90 tabs 11/29/20 sustained-release Allergies Allergy/AdvReac Type Severity Reaction Status Date / Time Sulfa (Sulfonamide Allergy Severe severe Verified 02/17/24 12:32 Antibiotics) hives General Stated Complaint: Headache BRADY: 4 Review of Systems Narrative: Review of Systems Constitutional: negative Eyes: negative ENT: negative Cardiovascular: negative Respiratory: negative Gastrointestinal: negative : negative Musculoskeletal: negative Skin: negative Neurologic: Headache Psych: negative Exam Narrative Exam Narrative: Physical Examination General: alert, awake, cooperative, resting comfortably, no acute distress HEENT: normocephalic, atraumatic; PERRL, EOM intact, conjunctiva normal; no nasal discharge; moist mucous membranes, oral and pharyngeal mucosa normal, tolerating secretions Neck: supple, trachea midline; full ROM Chest: normal to inspection Respiratory: normal respiratory effort, speaking in full sentences Skin: no lesions, rashes or trauma appreciated Neuro: AAOx3, normal speech, moving all extremities; cranial nerves intact, ambulatory without assistance no ataxia Psych: Appropriate mood and affect Course Vital Signs Vital signs: Vital Signs Temperature 36.6 C 02/17/24 12:29 Pulse 78 02/17/24 12:29 Respiratory Rate 16 02/17/24 12:29 Blood Pressure 155/94 H 02/17/24 12:29 Pulse Oximetry 99 02/17/24 12:29 Temperature 36.6 C 02/17/24 12:29 Temperature Source Skin 02/17/24 12:29 Pulse 78 02/17/24 12:29 Respiratory Rate 16 02/17/24 12:29 Respiratory Effort Normal, Non-Labored 02/17/24 12:32 Blood Pressure 155/94 H 02/17/24 12:29 Blood Pressure Position Sitting 02/17/24 12:29 Pulse Oximetry 99 02/17/24 12:29 Oxygen Delivery Method Room Air 02/17/24 12:29 Oxygen Flow Rate 0 02/17/24 12:29 Pain Level 0 02/17/24 12:29 Medical Decision Making 78-year-old male presents 3 to 4 days after accidentally instilling a drop of her dog's otic medication in her left eye, prior to this event patient had sustained what sounds like a corneal injury from a paint splash and was started on human eyedrops by her eye doctor. Patient mistakingly picked up the bottle of her dogs otic drops. Had some burning in her eye she immediately irrigated the eye and felt better. Since then has had intermittent left brow pain sharp in nature brief without other symptomatology. Patient does not wear contact lenses. Patient denies any change in her vision. Will repeat visual acuity, will perform fluorescein stain, consider frontal headache related to corneal ulcer/abrasion no evidence of infection inflammation or foreign body low suspicion for temporal arteritis given location of discomfort low suspicion for CVA or aneurysm. No evidence of allergic reaction. Likely home with reassurance and close follow-up 14: 55 patient endorses that turning her head to the right increases the pain in her left forehead, have added basic labs and a CTA to assess for any vascular anomaly of the head or neck. Negative CTA, labs unremarkable. Fluorescein stain negative for corneal ulcer or abrasion. Patient will follow-up closely with her primary care physician and eye doctor. Quality:SDOH Health Related Social Needs: No Data to Display PFSH All Active Problems (Updated 02/17/24 @ 14:56 by Moses Gaytan MD) Headache (Acute) Presbylarynges (Acute) Hoarseness (Acute) Foreign body in ear (Acute) Metatarsalgia of both feet (Acute) Sensorineural hearing loss (Acute) Visit for suture removal (Acute) Laceration of hand, left (Acute) Encounter for removal of sutures (Acute) Laceration of right hand (Acute) Mouth sores (Acute) Presumed HSV (fever blisters .. resolving with Valacyclovir) Undifferentiated connective tissue disease (Acute) [facility] Adopted person (Acute) with recent discovery of blood relatives and extended family ([place]?) Recurrent depressive disorder, currently in remission (Acute) Bupropion helping depression remit. ADHD, predominantly inattentive type (Acute) history of inattention through child and adulthood without significant hyperactivity or impulsivity Acute vestibular neuritis (Acute) Working Dx .. steroid spray, meclizine, antihist. Lorzpm. Pt does not tolerate steroids well. Tinnitus of both ears (Chronic 04/05/20) Sensorineural hearing loss (SNHL) of both ears (Chronic 04/05/20) Dr. Cortes Hallux rigidus, left foot (Acute) Villar's neuroma of left foot (Acute) Viral syndrome (Acute) Foot deformity, bilateral (Acute) B/L foot change, left toes seem to splay .. Proximal digit swelling and sensation of having something in shoe .. Note: left insert (possible change in gait?) Tick bite (Acute 03/13/17) Medicare annual wellness visit, subsequent (Acute) Telangiectasia (Acute) 08/09/18 right nasal sidewall 5mm-[facility] Tendinitis of left rotator cuff (Acute) Carpal tunnel syndrome of left wrist (Acute 01/15/15) PMR (polymyalgia rheumatica) (Acute 06/09/18) [place] Plaquenil, Ibuprofen -- now on hold 2' Eliquis and she is stiff and in pain. No to steroids unless emergency. As od Aug 2018, she stopped Eliquis and started low dose NSAIDs (Ibu 400am/200pm), and it is managing hr pain/stiffness. She has increase dher activity and feels very good. 10/15/18 ik PAF (paroxysmal atrial fibrillation) (Acute 06/09/18) Two episodes, 2 years ago .. onset with extreme physical/emot/psych stress [moving; packing; new job/career; primary breadwinner; dehydration; fatigue; caffeine] .. 2nd episode also assoc with physical/dehydr stressors.. Trying to coord med rvw w/cardiology as pt is very much wanting to d/c anti-coag (2' med limitations for her RA, which has led to dec activity & weight-gain). Borderline hypertension (Acute 06/09/18) Rotator cuff tear, left (Acute) Possible Dx ... especially with Hx shoulder injury/strain (while being pulled by arms in a play). - need XR, PT evaluation, but severity of pain w/o any trauma or repetitive motion injury makes a tear highly suspicious .. ordering MRI Medical History Meralgia paresthetica, right lower limb Lesion of right sciatic nerve Prediabetes Cough Dizziness and giddiness Neck pain Non-scarring alopecia Acute upper respiratory infection Cellulitis Anxiety Obesity Hyperlipidemia Shingles Connective tissue disorder Afib SNHL (sensorineural hearing loss) ADD (attention deficit disorder) Hx Dx ADD Depression (06/09/18) Surgical History History of tonsillectomy and adenoidectomy History of carpal tunnel surgery Cholecystectomy Arthroscopy l knee Family History Self Adopted Has reconnected with biological parents and siblings enough to know that Alzheimers runs on maternal side. 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 during COVID Duration: 30-45 minutes/day Frequency: 1-2 times per week Seatbelt use: always Working smoke detector in home: Yes Fire extinguisher in home: Yes Carbon monox detector in home: Yes Firearms in home: No Do you feel safe at home: Yes Do you feel safe in your relationship?: Yes
--- NOTE | 2024-02-17 13:00 | DI.CT_ITS ---
Exam(s) CT BRAIN NECK CTA EXAM: CT BRAIN NECK CTA CLINICAL HISTORY: left frontal headache, triggered by turning neck. TECHNIQUE: Imaging Protocol: Axial CT angiography was performed with multi-slice acquisition and mu lti-planar and/or 3D reconstructions. CONTRAST MATERIAL: Intravenous: Omnipaque 350 contrast volume:85 mL COMPARISON: CT HEAD WITHOUT CONTRAST from 11/15/2016 FINDINGS: The examination is limited due to patient motion artifact. CT Head W/O and W: Ventricles and Extra axial spaces: Normal in size and morphology for the patient's age. Hemorrhage: None. Cerebral parenchyma: There are areas of decreased attenuation in the white matter consistent with chr onic microvascular ischemic disease. No acute mass effect. Midline shift: None. Brainstem/Cerebellum: Normal. Calvarium: Normal. Visualized Paranasal sinuses/Mastoids: Clear. Soft Tissues: Unremarkable. Enhancement: Unremarkable. CTA Neck W: There is artifact from the patient's dental work. Common Carotid: Right: No dissection, occlusion or significant stenosis. Left: No dissection, occlusion or significant stenosis. External Carotid: Right: No occlusion or significant stenosis. Left: No occlusion or significant stenosis. Internal Carotid: Right: No dissection, occlusion or significant stenosis. Mild atherosclerotic calcification at the o rigin. No significant stenosis. Left: No dissection, occlusion or significant stenosis. Vertebral Artery: Right: No dissection, occlusion or significant stenosis. Left: No dissection, occlusion or significant stenosis. Lung Apices: Normal. Bones: Within normal limits for the patient's age. Soft Tissues: Normal. Thyroid gland: Unremarkable. CTA Brain W: Internal Carotid Arteries: Atherosclerotic calcification is seen in the cavernous internal carotid ar teries bilaterally with less than 50 percent stenosis. No aneurysm or occlusion. Anterior Cerebral Arteries: Right: No aneurysm, occlusion or significant stenosis. Left: No aneurysm, occlusion or significant stenosis. Middle Cerebral Arteries: Right: No aneurysm, occlusion or significant stenosis. Left: No aneurysm, occlusion or significant stenosis. Posterior Cerebral Arteries: Right: No aneurysm, occlusion or significant stenosis. Left: No aneurysm, occlusion or significant stenosis. Vertebral Arteries: Mild atherosclerosis in the distal vertebral arteries. Right: No aneurysm, occlusion or significant stenosis. Left: No aneurysm, occlusion or significant stenosis. Basilar Artery: No aneurysm, occlusion or significant stenosis. IMPRESSION: 1. No large vessel occlusion or significant stenosis on the CT angiography of the head. 2. No acute intracranial process. 3. No occlusion or significant stenosis on the CT angiography of the neck. RADIATION DOSE DELIVERED: 1,846.48mGy.cm Total DLP DATA REPOSITORY: All CT scans at this facility are submitted to the National Radiology Data Registry (NRDR) Dose Index Registry (DIR) with the [employer] (ACR). RADIATION OPTIMIZATION: All CT scans at this facility use at least one of these dose optimization te chniques: automated exposure control; mA and/or kV adjustment per patient size (includes targeted exa ms where dose is matched to clinical indication); or iterative reconstruction.
[2024-02-17 13:25] LABS: Abs Immature Grans 0.02 10^3/uL (0.0-0.06); Absolute Basophil Count 0.07 10^3/uL (0.0-0.2); Absolute Eosinophil Count 0.14 10^3/uL (0.0-0.7); Absolute Lymphocyte Count 2.08 10^3/uL (1.2-3.4); Absolute Monocyte Count 0.52 10^3/uL (0.1-0.8); Absolute Neutrophil Count 3.53 10^3/uL (1.2-6.7); Basophils % 1.1; Eosinophils % 2.2; HCT 39.5 % (36.0-46.0); HGB 13.1 g/dL (11.2-15.7); Immature Grans % 0.3; Lymphocytes % 32.7; MCH 30.9 pg (27.0-33.0); MCHC 33.2 % (32.0-36.0); MCV 93 fL (80-95); MPV 9.9 fL (8.0-11.0); Monocytes % 8.2; Neutrophils % 55.5; Platelet Count 207 10^3/uL (130-400); RBC 4.24 10^6/uL (3.93-5.22); RDW 13.1 % (11.7-14.6); RDW-SD 44.4 fL; WBC 6.36 10^3/uL (4.4-10.8)
[2024-02-17 13:38] LABS: PTT Activated 24.7 sec (23.6-32.8); Prothrombin Time 9.9 sec (9.1-11.1)
[2024-02-17 13:48] LABS: ALT 29 U/L (14-59); AST 15 U/L (15-37); Albumin 3.7 g/dL (3.4-5.0); Alkaline Phosphatase 75 U/L (46-116); Anion Gap 8.8 mmol/L (3-11); BUN 20 mg/dL (7-18); Bilirubin, Total 0.4 mg/dL (0.2-1.0); CO2 28.2 mmol/L (21.0-32.0); CREATININE 1.1 mg/dL (0.55-1.02); Calcium 9.3 mg/dL (8.5-10.1); Chloride 105 mmol/L (98-107); Estimated GFR 51.75 (mL/min/1.73m2); Glucose 92 mg/dL (74-106); Potassium 4.5 mmol/L (3.5-5.1); Sodium 142 mmol/L (136-145); Total Protein 7.3 g/dL (6.4-8.2)
[2024-02-17] MEDS: Normal Saline - Diluent 50 ML VIAL IJ (14:07)
[2024-02-17] MEDS: Omnipaque 350 MG/ML 500 ML BTL-Imaging package 85 ML IJ (14:08)
[2024-02-17 14:57] VITALS: BP 144/66; PULSE 88; RESP 16; O2SAT 99
== END 2024-02-17 15:07 | disposition home or self-care (01) ==
PROVIDERS: Emergency Provider Emergency Medicine; PCP Physician Assistant Medical
DX: H57.12 Ocular pain, left eye (principal); R51.9 Headache, unspecified; T65.891A Toxic effect of other specified substances, accidental (unintentional), initial encounter; R03.0 Elevated blood-pressure reading, without diagnosis of hypertension
CPT/HCPCS: 36415; 70496; 70498; 80053; 99285; 85025; 85610; 85730; 99283

== ENCOUNTER 2024-04-22 11:10 | Day surgery (SDC) | payer MEDICARE, SELFPAY ==
--- NOTE | 2024-04-22 11:29 | ANES.PREOP_ITS ---
General Info Date of Service Date Performed: 04/22/24 Height: 4 ft 11 in Weight: 79.379 kg Body Mass Index (BMI): 35.3 Surgical Procedure: Operation Date: 04/22/24 13:10 Proposed Procedure Side Surgeon p Cataract Extraction with IOL Implant Left Moses Resendez MD Meds Allergies and Home Medications Allergies Allergy/AdvReac Type Severity Reaction Status Date / Time Sulfa (Sulfonamide Allergy Severe severe Verified 04/22/24 11:37 Antibiotics) hives iodine Allergy Hives Unverified 04/22/24 11:37 Home Medication Medication Instructions Recorded calcium carbonate 500 mg-vitamin 1 ea PO BID 06/23/18 D3 10 mcg (400 unit) tablet (Calcium 500 + D) aspirin 81 mg tablet,delayed 81 mg PO DAILY 11/26/18 release ibuprofen 200 mg tablet 200 mg PO TID-QID PRN 11/26/18 magnesium 250 mg tablet 500 mg PO DAILY 06/01/19 docusate sodium 100 mg capsule 200 mg PO QHS PRN 08/24/20 (Stool Softener) bupropion HCl 150 mg tablet,12 hr 150 mg PO QAM #90 tabs 11/29/20 sustained-release biotin 1,000 mcg chewable tablet 1,000 mcg PO DAILY 12/20/20 dextroamphetamine-amphetamine 5 mg 5 mg PO BID PRN 02/19/23 tablet (Adderall) hydroxychloroquine 200 mg tablet 300 mg PO DAILY #180 tabs 02/19/23 clobetasol 0.05 % scalp solution 1 applic topical BID 10/06/23 clotrimazole 1 % topical cream 1 applic topical DIRECTED 10/06/23 diclofenac sodium 1 % topical gel 2 g topical TID 10/06/23 (Voltaren Arthritis Pain) minoxidil 2.5 mg tablet 2.5 mg PO DAILY 10/06/23 letrozole 2.5 mg PO DAILY 11/16/23 Current Visit Medications: Current Medications Generic Name Dose Route Start Last Admin Trade Name Freq PRN Reason Stop Dose Admin Acetaminophen 1,000 mg 04/22/24 06:00 Acetaminophen 500 Mg Tab PO 05/22/24 05:59 Q4H PRN PRN Balanced Salt Solution 500 ml 04/22/24 06:00 Balanced Salt Soln.-Plus 500 Ml Bag OP 05/22/24 05:59 DIRECTED MELANIE Miscellaneous Medication 0 ml 06/28/24 06:00 Prednisolone 1%, Moxifloxacin 0.5%, Bromfenac 0.09% 5ml Btl OS 05/22/24 05:59 DIRECTED [facility] Miscellaneous Medication 0 ml 04/22/24 06:00 Tropicam./Phenyleph. 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 Hoarseness R49.0 Foreign body in ear T16.9XXA Metatarsalgia of both feet M77.41, M77.42 Sensorineural hearing loss H90.5 Encounter for removal of sutures Z48.02 Laceration of hand, left S61.412A Visit for suture removal Z48.02 Laceration of right hand S61.411A Mouth sores K13.79 Undifferentiated connective tissue disease M35.9 Adopted person Z02.82 Recurrent depressive disorder, 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, predominantly inattentive type F90.0 Acute vestibular neuritis H81.20 Tinnitus of both ears 04/05/20 H93.13 Sensorineural hearing loss (SNHL) of both ears 04/05/20 H90.3 Hallux rigidus, left foot M20.22 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 Viral syndrome B34.9 Foot deformity, bilateral M21.961, M21.962 Tick bite 03/13/17 W57.XXXA Medicare annual wellness visit, subsequent Z00.00 Eye disorder 09/2018 H57.9 Telangiectasia I78.1 Tendinitis of left rotator cuff M75.82 Carpal tunnel syndrome of left wrist 01/15/15 G56.02 PMR (polymyalgia rheumatica) 06/09/18 M35.3 PAF (paroxysmal atrial fibrillation) 06/09/18 I48.0 Borderline hypertension 06/09/18 R03.0 Rotator cuff tear, left M75.102 Medical History Medical History (Updated 04/21/24 @ 19:03 by Moses Resendez MD) Hx of breast cancer Meralgia paresthetica, right lower limb Lesion of right sciatic nerve Prediabetes Cough Dizziness and giddiness Neck pain Non-scarring alopecia Acute upper respiratory infection Cellulitis Anxiety Obesity Hyperlipidemia Shingles Connective tissue disorder Afib SNHL (sensorineural hearing loss) ADD (attention deficit disorder) Hx Dx ADD Depression (06/09/18) Surgical History Surgical History (Updated 04/20/24 @ 12:20 by Oscar Huggins) History of lumpectomy History of tonsillectomy and adenoidectomy History of carpal tunnel surgery Cholecystectomy Arthroscopy l knee Tobacco Smoking/Tobacco Use Status: Former Tobacco Use Passive smoking exposure: No Second hand exposure: Yes (father was a smoker) Alcohol Alcohol Intake: current Alcohol intake frequency: a few times a week Substance Use Substance use: Never Substance use type: does not use Vital Signs and Lab Results Lab Results Blood Type / Crossmatch: No Data to Display Complete Blood Count: No Data to Display Complete Metabolic Panel: No Data to Display Liver Function Panel: No Data to Display Coagulation Panel: No Data to Display Cardiac Panel: No Data to Display Arterial Blood Gas: No Data to Display Venous Blood Gas: No Data to Display Pancreas Panel: No Data to Display Thyroid Panel: No Data to Display Infectious Disease: No Data to Display Blood Cultures: No Data to Display Toxicology Panel: No Data to Display Imaging and Studies Imaging and Studies Study information below may be from another EMR and interpreted by another provider. Please see original notes in EMR for more complete details. Echocardiogram Summary: Patient Name: MONROE ELLIOTT Unit #: [id number] Loc: [place] Ordering Provider: SARAI REYEZ M.D. Status: ADM IN Primary Care Provider: EDITH DELAROSA Date of Exam: 07/23/16 Sex: F : 1945 Age: 70 Exam(s) [id number] US:Echocardiogram Heart *[facility]* *[facility]* [address] [place] [address] Date of study: 07/23/2016 Transthoracic Echocardiography M-mode, complete 2D, complete spectral Doppler, and color Doppler *STUDY CONCLUSIONS* Summary: 1. Left ventricle: The cavity size was normal. Wall thickness was normal. Systolic function was normal. The estimated ejection fraction was 60-65%. Wall motion was normal; there were no regional wall motion abnormalities. 2. Mitral valve: Mildly calcified annulus. 3. Left atrium: The atrium was at the upper limits of normal in size. 4. Right ventricle: The cavity size was normal. Wall thickness was normal. Systolic function was normal. 5. Pulmonary arteries: Pulmonary systolic pressure was mildly increased, in the range of 35mm Hg to 40mm Hg. *PATIENT PRESENTATION* Height: 154.9cm ((61in) ) S/D Pressure: Weight: 74.8kg ((164.7lb) ) BSA: 1.82m^2 Test start time: 09:40 AM. Test stop time: 10:53 AM. REFERRING Sarai Reyez PERFORMING Unknown PERFORMING [facility] [employer] Rosa Armenta *PROCEDURE DATA* Procedure information: [id number] This study was interpreted by [facility]. Pertinent images and digital data are archived for permanent storage and are available for subsequent review. No prior study was available for comparison. Study status: Routine. Transthoracic echocardiography. M-mode, complete 2D, complete spectral Doppler, and color Doppler. A Transthoracic Echocardiogram was performed. Scanning was performed from the parasternal, apical, subcostal, and suprasternal notch acoustic windows. Images were obtained using an [facility] cardiac ultrasound machine. Image quality was adequate. Study completion: The patient tolerated the procedure well. There were no complications. History: PMH: New onset afib. *CARDIAC ANATOMY* Left ventricle: The cavity size was normal. Wall thickness was normal. Systolic function was normal. The estimated ejection fraction was 60-65%. Wall motion was normal; there were no regional wall motion abnormalities. Diastolic parameters were normal. Aortic valve: Trileaflet; normal thickness leaflets. Mobility was not restricted. Doppler: Transvalvular velocity was within the normal range. There was no stenosis. There was no regurgitation. Valve area (VTI): 2.1cm^2. Indexed valve area (VTI): 1.2cm^2/m^2. Valve area (Vmax): 2cm^2. Indexed valve area (Vmax): 1.1cm^2/m^2. Mean gradient (S): 4mm Hg. Peak gradient (S): 9mm Hg. Aorta: Aortic root: The aortic root was normal in size. Ascending aorta: The ascending aorta was normal in size. Mitral valve: Mildly calcified annulus. Mobility was not restricted. Doppler: Transvalvular velocity was within the normal range. There was no evidence for stenosis. There was trivial regurgitation. Valve area by pressure half-time: 3.2cm^2. Indexed valve area by pressure half-time: 1.8cm^2/m^2. Peak gradient (D): 4.3mm Hg. Left atrium: The atrium was at the upper limits of normal in size. Right ventricle: The cavity size was normal. Wall thickness was normal. Systolic function was normal. Pulmonic valve: The valve appears to be grossly normal. Doppler: Transvalvular velocity was within the normal range. There was no evidence for stenosis. There was trivial regurgitation. Tricuspid valve: Structurally normal valve. Doppler: Transvalvular velocity was within the normal range. There was no evidence for stenosis. There was trivial regurgitation. Pulmonary artery: Pulmonary systolic pressure was mildly increased, in the range of 35mm Hg to 40mm Hg. Right atrium: The atrium was normal in size. Pericardium: There was no pericardial effusion. Systemic veins: Inferior vena cava: The vessel was normal in size. The respirophasic diameter changes were in the normal range (greater than or equal to 50%), consistent with normal central venous pressure. Measurements Left ventricle Value Reference LV fx shortening, PLAX chordal 39 % >=29 LV end-diastolic volume 96 ml LV end-systolic volume 29 ml LV ejection fraction 70 % LV ejection fraction, 1-p A2C 60 % LV ejection fraction, 2-p 62 % LV ID, ED, MM 4.6 cm 3.7 - 5.6 LV ID, ES, MM 2.7 cm LV fx shortening, MM 41 % 29 - 45 LVOT Value Reference LVOT ID, A-P 1.9 cm LVOT area 2.7 cm^2 LVOT peak velocity, S 1.09 m/sec LVOT VTI, S 28.0 cm LVOT mean gradient, S 2.2 mm Hg Aortic valve Value Reference Aortic mean gradient, S 4 mm Hg Aortic peak gradient, S 9 mm Hg Aortic valve area, VTI 2.1 cm^2 Aortic valve area, peak velocity 2 cm^2 Aorta Value Reference Aortic root ID, ED 3.3 cm Ascending aorta ID, A-P, S 3.2 cm RVOT Value Reference RVOT VTI, S 18.2 cm Left atrium Value Reference LA area, ES, A4C 19 cm^2 8.8 - 23.4 LA volume/bsa, ES, 1-p A4C 33 ml/m^2 LA/aortic root ratio 1.18 Mitral valve Value Reference Mitral E-wave peak velocity 1.04 m/sec Mitral A-wave peak velocity 0.72 m/sec Mitral pressure half-time 68 ms Mitral peak gradient, D 4.3 mm Hg Mitral E/A ratio, peak 1.45 Mitral valve area, PHT, DP 3.2 cm^2 Mitral peak LV-LA gradient, S 78.3 mm Hg Mitral maximal regurg velocity, PISA 4.42 m/sec Tricuspid valve Value Reference Tricuspid regurg peak velocity 2.8 m/sec Tricuspid peak RV-RA gradient 32.2 mm Hg Right atrium Value Reference RA area, ES, A4C 12 cm^2 8.3 - 19.5 RA volume/bsa, ES, 1-p A4C 16 ml/m^2 Legend: (L) and (H) fozia values outside specified reference range. I have personally reviewed the images and have reviewed and edited the reported findings. Electronically signed by Zafar Santos 07/23/2016 12:29 Ordering provider: SARAI REYEZ Anesthesia Assessment and Plan Anesthesia History Personal History: No History of Anesthesia Complications Family History: No Family History of Anesthesia Complications Exercise Tolerance Exercise Tolerance: Metabolic Equivalents>4 Pertinent Negatives Pertinent Negatives: No Symptoms of GERD, No Major Cardiovascular Symptoms or Complaints and No History of CVA/TIA Cardiac & Pulmonary Exam Cardiac Exam: Normal S1/S2 Heart Sounds Pulmonary Exam: Clear Bilateral Breath Sounds Implantable Cardiac Device Does patient have a Pacemaker or an ICD?: No Airway Exam Known Difficult Airway: No Mallampati Class: 2 Mouth Opening: Normal (> 3cm) Thyromental Distance: Greater than 3 cm Neck Range of Motion: Full ROM Neck Circumference: Normal Teeth Condition: Normal Dentition Airway Comments: Partial left at home ASA Classification ASA Score: ASA 3 Emergency Case?: No NPO Status NPO Status: NPO Clears >2 hours, Solids >8 hours Anesthesia Plan Resuscitation Status: Full Code Anesthesia Technique: MAC Anesthesia Airway Planned: Natural Airway Monitors Used: Standard Monitors Preoperative Comments:: Patient anxious, has agreed to try MAC no sedation with PIV placement and IV versed as backup.
[2024-04-22 11:31] VITALS: BMI 35.3
[2024-04-22 11:43] VITALS: BP 133/77; PULSE 92; RESP 16; TEMP 36.2; O2SAT 99
[2024-04-22] MEDS: Tetracaine 0.5% 4 ML BTL OS (12:31)
[2024-04-22] MEDS: Povidone-Iodine Ophth 30 ML BTL (12:32)
[2024-04-22] MEDS: Balanced Salt Soln.-PLUS 500 ML BAG OP (12:38)
[2024-04-22] MEDS: Lidocaine 1% Pres-Free 5 ML VIAL (12:39)
[2024-04-22] MEDS: Duovisc Viscoelastic System EACH 1 EACH (12:39)
[2024-04-22 12:54] VITALS: BP 144/67; PULSE 67; RESP 18; TEMP 36.4; O2SAT 99
--- NOTE | 2024-04-22 12:59 | W.PM.DSUDISC ---
Date of service: 04/22/24 Time of Service: 12:59 Discharge Plan Disposition Patient Disposition: Home Discharge Details Attending Provider: Moses Resendez Primary Care Provider: Blanca Busch Home Meds and New Rx's Prescriptions: No Action ibuprofen 200 mg tablet 200 mg PO TID-QID PRN aspirin 81 mg tablet,delayed release (DR/EC) 81 mg PO DAILY magnesium 250 mg tablet 500 mg PO DAILY biotin 1,000 mcg tablet,chewable 1,000 mcg PO DAILY dextroamphetamine-amphetamine [Adderall] 5 mg tablet 5 mg PO BID PRN Hold Instructions: Home Medication placed on hold at Doctor's office Rx Instructions: administer doses at least 4-6 hours apart, takes usually qd but allowed to take bid. docusate sodium [Stool Softener] 100 mg capsule 200 mg PO QHS PRN clobetasol 0.05 % solution 1 applic topical BID clotrimazole 1 % cream 1 applic topical DIRECTED minoxidil 2.5 mg tablet 2.5 mg PO DAILY diclofenac sodium [Voltaren Arthritis Pain] 1 % gel 2 g topical TID Rx Instructions: apply to single elbow, wrist or hand; for hand includes palm/fingers/back of hand letrozole 2.5 mg PO DAILY calcium carbonate-vitamin D3 [Calcium 500 + D] 1 EACH tablet 1 ea PO BID bupropion HCl 150 mg tablet sustained-release 12 hr 150 mg PO QAM Qty: 90 3RF Rx Instructions: Continue higher dose hydroxychloroquine 200 mg tablet 300 mg PO DAILY Qty: 180 Discharge Instructions Stand Alone Forms: DSU Post-Op CataractJosephine (DSU) Discharge Orders Discharge Orders: Discharge Order (Routine); Ordered 04/22/24 Ordered By: Moses Resendez DS: Diagnosis Discharge Diagnosis (1) Cortical age-related cataract, left eye: Status: Resolved (2) Nuclear age-related cataract, left eye: Status: Resolved
--- NOTE | 2024-04-22 12:59 | W.PM.OP ---
Date of service: 04/22/24 Time of Service: 13:00 Operative Note Operative Note DATE OF PROCEDURE: 04/22/24 PRE-OP DIAGNOSIS: Nuclear/cortical cataract, left eye POST-OP DIAGNOSIS: same PROCEDURE: Cataract extraction using phacoemulsification with intraocular lens implant, left eye SURGEON: Moses Resendez ANESTHESIA TYPE: Local By Surgeon and MAC Refer to Anesthesia Record PATHOLOGY: none sent COMPLICATIONS: None Patient was transported to: same day Patient's condition: stable Implants: Carter Clareon [id number] Indications: Progressive decreased vision due to cataract, left eye Procedure Description: CATARACT SURGERY OPERATIVE REPORT PREOPERATIVE DIAGNOSIS: Nuclear/cortical cataract, left eye POSTOPERATIVE DIAGNOSIS: Same OPERATION: Cataract extraction using phacoemulsification with posterior chamber intraocular lens implant, left eye. IOL: IOL Auctioneer Tobacco/Model: Carter Clareon [id number] IOL Power: + 19.0 diopters IOL Serial Number: [id number] Optic Diameter: 6.0mm Haptic/Overall Diameter: 13.0mm PHACO INFO: Carter Ionix Medicalurion Vision System with OZil and Active Fluidics Cumulative Dispersed Energy (CDE): 7.50 seconds SURGEON: Moses Resendez MD, ALINA ANESTHESIA: Monitored Anesthesia Care (MAC), with local sub-tenon's anesthetic infiltration COMPLICATIONS: None SPECIMENS: None INDICATIONS FOR PROCEDURE: The patient is a 78-year-old lady with history of diminished visual acuity in her left eye secondary to the development of nuclear/cortical cataract. She was significantly symptomatic that she desired cataract surgery and attempt to improve and maximize her vision. The option of cataract surgery was offered to the patient and she wished to proceed. See office notes for detailed information. PROCEDURE: The correct surgical eye was identified and marked as the left eye and the pupil was dilated in the preoperative area using mydriatics and cycloplegics. The dilated pupil size was 7.0 mm. The patient elected to proceed without oral sedation. The patient was brought to the operating room where cardiopulmonary monitoring was instituted and surgical time-out was performed, confirming the correct operative eye and IOL power. Topical anesthesia was administered and ophthalmic povidone-iodine 5% was instilled into the conjunctival fornices. The audra-ocular area was prepped with Betadine 10% solution and draped in the usual sterile fashion for intraocular surgery, including an aperture drape. A Tegaderm transparent film dressing was cut in half and used to cover the lashes and lid margins. Care was taken to sequester the lashes and lid margins under the Tegaderm dressing. A lid speculum was placed between the lids of the operative eye and the Carter LuxOR Revalia operating microscope was maneuvered into position. Erica scissors were then used to make a conjunctival buttonhole approximately 6mm posterior to the limbus in the inferonasal quadrant. Blunt dissection was carried out to expose bare sclera, and a blunt-tipped sub-tenon?s anesthesia cannula was introduced and passed posteriorly along the globe where non-preserved plain lidocaine was injected into posterior sub-Tenon?s space. A sideport knife was used to make a paracentesis port. Intraocular phenylephrine/lidocaine was injected into the anterior chamber. The anterior chamber was then filled with viscoelastic. A keratome knife was used construct a two-plane clear corneal tunnel extending 2.0mm into clear cornea. A flap was raised on the anterior capsule and capsulorhexis forceps were used to complete a continuous curvilinear capsulorhexis of 5.5 mm. Balanced salt solution was then used to perform cortical cleaving hydrodissection and nuclear hydrodelineation until the lens could be freely rotated within the capsular bag. The lens nucleus was then disassembled and removed within the capsular bag and iris plane using phacoemulsification. Residual cortical material was removed using the irrigation/aspiration handpiece. The posterior capsule was carefully polished to remove as much residual lens epithelial cells as safely possible. The capsular bag was then inflated and the anterior chamber deepened with viscoelastic. The lens implant described above was inserted into the capsular bag using the Carter Autonome Injector. A Kuglen hook was used to dial the IOL into position. Residual viscoelastic was then removed first from posterior to the IOL, then from the anterior chamber using the I/A handpiece. The lens implant was noted to center nicely within the capsular bag. The incisions were stromally hydrated, and the anterior chamber was reformed using BSS. Then 0.5cc of moxifloxacin 1.0mg/ml were injected into the capsular bag and anterior chamber. The incisions were checked with a Weck spear and found to be secure. Several drops of ophthalmic povidone-iodine 5% were then applied to the eye followed by two drops of combination steroid/NSAID/antibiotic solution. The drapes were removed and a clear plastic protective eye shield was placed over the eye. The patient was then returned to Same Day Surgery in stable condition.
--- NOTE | 2024-04-22 13:15 | W.ANESPOSTOP ---
Postoperative Evaluation Date, Time and Location Date Performed: 04/22/24 Time Performed: 12:56 Patient Location: Day Surgery Unit Vital Signs Most Recent Imported Vital Signs: Most Recent Vital Signs Temp Pulse Resp BP Pulse Ox 36.4 C L 67 18 144/67 H 99 04/22/24 12:54 04/22/24 12:54 04/22/24 12:54 04/22/24 12:54 04/22/24 12:54 Pain Score Most Recent Pain Score: Most Recent Pain Score Pain Level 0 04/22/24 12:54 Assessment Mental Status: Awake (Alert & Oriented to Patient Baseline) Airway and Respiratory Function: Patent airway with normal (patient baseline) respiratory exam Cardiovascular Function: Hemodynamically Stable Hydration Status: Adequately Hydrated Nausea & Vomiting: No Nausea or Vomiting Pain: Pt. Denies Any Pain Peripheral Nerve Block: Other (Local by Dr. Resendez)
== END 2024-04-22 13:22 | disposition home or self-care (01) ==
LOC: SUR 11:10
PROVIDERS: PCP Physician Assistant Medical; Visit Provider Ophthalmology
PROC: (CPT 66984; principal; 2024-04-22 13:00)
DX: H25.012 Cortical age-related cataract, left eye (principal); H25.12 Age-related nuclear cataract, left eye
CPT/HCPCS: 66984; 00123; V2632; J2003

== ENCOUNTER 2024-06-06 08:33 | Emergency (ER) | payer MEDICARE, SELFPAY ==
[2024-06-06 08:36] VITALS: BP 136/76; PULSE 81; RESP 20; O2SAT 100
--- NOTE | 2024-06-06 08:45 | DI.RAD_ITS ---
Exam(s) XR PELVIS AP XR FEMUR LT EXAM: XR PELVIS AP and XR femur LT CLINICAL HISTORY: Left hip pain. TECHNIQUE: 2D digital imaging was performed.Five images were obtained. COMPARISON: No priors for comparison. FINDINGS: BONES: No acute fracture is present. No bony destructive lesion is seen. JOINTS: No dislocation present. There are degenerative changes seen at the sacroiliac joints bilatera lly. The hip joints are well maintained. Mild degenerative changes are seen in the knee characteriz ed by joint space narrowing and osteophytes. The findings are most marked in the lateral femoral tib ial joint space. SOFT TISSUE: Dystrophic calcifications are seen adjacent to the left greater trochanter. Vascular ca lcifications are present. IMPRESSION: 1. No acute fracture or dislocation. 2. Degenerative changes seen in the sacroiliac joints and the left knee. 3. Atherosclerotic calcification is present. DATA REPOSITORY: RADIATION DOSE DELIVERED:
--- NOTE | 2024-06-06 08:49 | W.ED.GENAD ---
Discharge Plan Disposition Patient Disposition: Home Condition: Stable Discharge Details Clinical Impression: Degenerative joint disease of left hip, Arthralgia, sacroiliac Primary Care Provider: Blanca Busch ED Provider: Abiola Adrian Home Meds and New Rx's Prescriptions: New lidocaine [Lidocan V] 5 % adhesive patch,medicated 1 patch topical DAILY Qty: 15 0RF Rx Instructions: leave on most painful area for up to 12 hrs prednisone 20 mg tablet 40 mg PO DAILY 5 Days Qty: 10 0RF Rx Instructions: Take 2 tablets daily x 5 days Continued ibuprofen 200 mg tablet 200 mg PO TID-QID PRN aspirin 81 mg tablet,delayed release (DR/EC) 81 mg PO DAILY magnesium 250 mg tablet 500 mg PO DAILY biotin 1,000 mcg tablet,chewable 1,000 mcg PO DAILY dextroamphetamine-amphetamine [Adderall] 5 mg tablet 5 mg PO BID PRN Rx Instructions: administer doses at least 4-6 hours apart, takes usually qd but allowed to take bid. docusate sodium [Stool Softener] 100 mg capsule 200 mg PO QHS PRN clobetasol 0.05 % solution 1 applic topical BID clotrimazole 1 % cream 1 applic topical DIRECTED minoxidil 2.5 mg tablet 2.5 mg PO DAILY diclofenac sodium [Voltaren Arthritis Pain] 1 % gel 2 g topical TID Rx Instructions: apply to single elbow, wrist or hand; for hand includes palm/fingers/back of hand letrozole 2.5 mg PO DAILY calcium carbonate-vitamin D3 [Calcium 500 + D] 1 EACH tablet 1 ea PO BID bupropion HCl 150 mg tablet sustained-release 12 hr 150 mg PO QAM Qty: 90 3RF Rx Instructions: Continue higher dose hydroxychloroquine 200 mg tablet 300 mg PO DAILY Qty: 180 Discharge Instructions Instructions: Osteoarthritis, Hip pain in adults, Sacroiliac Joint Pain ED Additional Instructions: You are placed on care management follow-up list for orthopedic office they should call you to make an appointment. If you do not hear from them in the next 3 to 5 days please call them. Use the lidocaine patches as directed once daily. You may try prednisone once daily x 5 days as discussed if no relief. Please take Tylenol or Ibuprofen with food every 4-6 hours as needed for pain and swelling. Use cane as directed, advance weight bearing as tolerated. Follow up with primary care provider in 3-5 days. Return to ED sooner if any worsening or concerns. Referrals: Tc France MD [ [facility] STAFF PHYSICIAN] - 2 weeks Blanca Busch PA [Primary Care Provider] - 5 days Discharge Data Discharge Date/Time-TO BE ENTERED AT DEPARTURE: 06/06/24 10:37 HPI General Mode of arrival: wheelchair. Date/Time Provider Initiated Documentation: 06/06/24 08:42. Limitations to Documentation: no limitations. Information obtained by: patient, RN notes reviewed and old records reviewed. HPI Narrative: 78-year-old female presents to the ER with chief complaint of left hip pain which began yesterday after going on him stairs and twisting her left lower extremity. She did not fall to the ground. She reports that she was able to ambulate after the incident but gradually had worsening pain. She denies any knee pain. She did take a gram of Tylenol last night nothing this morning. No history of hip surgeries. Denies any back pain. She is alert and oriented x 4. She does have a past medical history of breast cancer, A-fib, ADD, depression, hyperlipidemia. She does have 1+ pitting edema noted to her bilateral lower extremities she is weaning herself off of Celebrex. Related Data Home Medications ?Medication ?Instructions ?Recorded ?Confirmed calcium carbonate 500 mg-vitamin 1 ea PO BID 06/23/18 06/06/24 D3 10 mcg (400 unit) tablet (Calcium 500 + D) aspirin 81 mg tablet,delayed 81 mg PO DAILY 11/26/18 06/06/24 release ibuprofen 200 mg tablet 200 mg PO TID-QID PRN 11/26/18 06/06/24 magnesium 250 mg tablet 500 mg PO DAILY 06/01/19 06/06/24 docusate sodium 100 mg capsule 200 mg PO QHS PRN 08/24/20 06/06/24 (Stool Softener) bupropion HCl 150 mg tablet,12 hr 150 mg PO QAM #90 tabs 11/29/20 06/06/24 sustained-release biotin 1,000 mcg chewable tablet 1,000 mcg PO DAILY 12/20/20 06/06/24 dextroamphetamine-amphetamine 5 mg 5 mg PO BID PRN 02/19/23 06/06/24 tablet (Adderall) hydroxychloroquine 200 mg tablet 300 mg PO DAILY #180 tabs 02/19/23 06/06/24 clobetasol 0.05 % scalp solution 1 applic topical BID 10/06/23 06/06/24 clotrimazole 1 % topical cream 1 applic topical DIRECTED 10/06/23 06/06/24 diclofenac sodium 1 % topical gel 2 g topical TID 10/06/23 06/06/24 (Voltaren Arthritis Pain) minoxidil 2.5 mg tablet 2.5 mg PO DAILY 10/06/23 06/06/24 letrozole 2.5 mg PO DAILY 11/16/23 06/06/24 lidocaine 5 % topical patch 1 patch topical DAILY hip pain #15 06/06/24 (Lidocan V) ea prednisone 20 mg tablet 40 mg (2 x 20 mg) PO DAILY 06/06/24 arthritis 5 days #10 tabs Previous Rx's ?Medication ?Instructions ?Recorded bupropion HCl 150 mg tablet,12 hr 150 mg PO QAM #90 tabs 11/29/20 sustained-release lidocaine 5 % topical patch 1 patch topical DAILY hip pain #15 06/06/24 (Lidocan V) ea prednisone 20 mg tablet 40 mg (2 x 20 mg) PO DAILY 06/06/24 arthritis 5 days #10 tabs Allergies Allergy/AdvReac Type Severity Reaction Status Date / Time Sulfa (Sulfonamide Allergy Severe severe Verified 06/06/24 08:38 Antibiotics) hives iodine Allergy Hives Unverified 06/06/24 08:38 General Stated Complaint: Orthopedic BRADY: 4 Review of Systems All systems reviewed & are unremarkable except as noted in HPI and below ENT Ears, Nose, Mouth, and Throat: Reports neck pain Musculoskeletal Musculoskeletal: Reports as per HPI, Reports abnormal gait, Denies back pain, Denies myalgias, Reports arthralgias, Reports neck pain and Reports stiffness Neurologic Neurologic: Reports abnormal gait Exam Narrative Exam Narrative: Constitutional: Alert and oriented x3. Appears stated age. Normal body habitus. Head: Normocephalic, no trauma. Eyes: Pupils PERRL, Red reflex noted, EOM's intact. Eyelids symmetrical without lesions, discharge, or swelling. Chest: RRR, Normal S1, S2, distal pulses intact. Resp: Lungs clear to auscultation bilaterally, no wheezes, rales, or rhonchi. Abdomen: Soft, non-distended, Normoactive bowel sounds all 4 quads. Musculoskeletal: Unable to assess gait, does have some left lateral hip tenderness to palpation, denies any knee pain is able to passively flex and extend knee without difficulty. Distal CMS intact. Does have 1+ pitting edema noted to bilateral lower extremities. Skin: No suspicious rashes or lesions. Capillary refill less than 2 sec. Neurologic: Cranial nerves II-XII intact. Alert and oriented x 3. Motor: No deficits noted. Sensory: Intact bilaterally all 4 extremities. Hematologic/Lymphatic: No ecchymosis, no lymphadenopathy. Course Vital Signs Vital signs: Vital Signs Pulse 81 06/06/24 08:36 Respiratory Rate 20 06/06/24 08:36 Blood Pressure 136/76 06/06/24 08:36 Pulse Oximetry 100 06/06/24 08:36 Pulse 81 06/06/24 08:36 Respiratory Rate 20 06/06/24 08:36 Blood Pressure 136/76 06/06/24 08:36 Blood Pressure Position Sitting 06/06/24 08:36 Pulse Oximetry 100 06/06/24 08:36 Oxygen Delivery Method Room Air 06/06/24 08:36 Oxygen Flow Rate 0 06/06/24 08:36 Pain Level 9 06/06/24 08:36 Medical Decision Making 78-year-old female presents to the ER with chief complaint of left hip pain which began yesterday after going on him stairs and twisting her left lower extremity. She did not fall to the ground. She reports that she was able to ambulate after the incident but gradually had worsening pain. She denies any knee pain. She did take a gram of Tylenol last night nothing this morning. No history of hip surgeries. Denies any back pain. She is alert and oriented x 4. She does have a past medical history of breast cancer, A-fib, ADD, depression, hyperlipidemia. She does have 1+ pitting edema noted to her bilateral lower extremities she is weaning herself off of Celebrex. XR left hip, pelvis and femur ordered, 650mg Tylenol PO. Discussed x-ray results with patient and family verbalized understanding. Will give lidocaine patch and ibuprofen. Discussed possible prednisone trial which patient would like to hold off on at this time. Will write her prescription and she can fill it at a later date if needed. Will have her referred to technical maintenance specialist she has seen Dr. France before for her arthritis. Patient provided cane here in the department. Discussed home care strict return instructions and follow-up, placed on care management list. This text was generated using [employer] system, please disregard any oddities of phrase or misspellings. Medical Records Medical records reviewed: Yes I reviewed the patient's medical records. Imaging Data Radiologic Study: Imaging: X-Ray Radiologist's impression: EXAM: XR PELVIS AP and XR femur LT CLINICAL HISTORY: Left hip pain. TECHNIQUE: 2D digital imaging was performed.Five images were obtained. COMPARISON: No priors for comparison. FINDINGS: BONES: No acute fracture is present. No bony destructive lesion is seen. JOINTS: No dislocation present. There are degenerative changes seen at the sacroiliac joints bilaterally. The hip joints are well maintained. Mild degenerative changes are seen in the knee characterized by joint space narrowing and osteophytes. The findings are most marked in the lateral femoral tibial joint space. SOFT TISSUE: Dystrophic calcifications are seen adjacent to the left greater trochanter. Vascular calcifications are present. IMPRESSION: 1. No acute fracture or dislocation. 2. Degenerative changes seen in the sacroiliac joints and the left knee. 3. Atherosclerotic calcification is present. Quality:SDOH Health Related Social Needs: No Data to Display PFSH All Active Problems (Updated 06/06/24 @ 10:16 by Abiola Adrian NP) Arthralgia, sacroiliac (Acute) Degenerative joint disease of left hip (Acute) Presbylarynges (Acute) Hoarseness (Acute) Foreign body in ear (Acute) Metatarsalgia of both feet (Acute) Sensorineural hearing loss (Acute) Encounter for removal of sutures (Acute) Laceration of hand, left (Acute) Visit for suture removal (Acute) Laceration of right hand (Acute) Mouth sores (Acute) Presumed HSV (fever blisters .. resolving with Valacyclovir) Undifferentiated connective tissue disease (Acute) [facility] Rheumatology Adopted person (Acute) with recent discovery of blood relatives and extended family ([place]?) Recurrent depressive disorder, currently in remission (Acute) Bupropion helping depression remit. ADHD, predominantly inattentive type (Acute) history of inattention through child and adulthood without significant hyperactivity or impulsivity Acute vestibular neuritis (Acute) Working Dx .. steroid spray, meclizine, antihist. Lorzpm. Pt does not tolerate steroids well. Tinnitus of both ears (Chronic 04/05/20) Sensorineural hearing loss (SNHL) of both ears (Chronic 04/05/20) Dr. Cortes Hallux rigidus, left foot (Acute) Villar's neuroma of left foot (Acute) Viral syndrome (Acute) Foot deformity, bilateral (Acute) B/L foot change, left toes seem to splay .. Proximal digit swelling and sensation of having something in shoe .. Note: left insert (possible change in gait?) Tick bite (Acute 03/13/17) Medicare annual wellness visit, subsequent (Acute) Telangiectasia (Acute) 08/09/18 right nasal sidewall 5mm-[facility] Tendinitis of left rotator cuff (Acute) Carpal tunnel syndrome of left wrist (Acute 01/15/15) PMR (polymyalgia rheumatica) (Acute 06/09/18) Rheum ([facility]?): Plaquenil, Ibuprofen -- now on hold 2' Eliquis and she is stiff and in pain. No to steroids unless emergency. As od Aug 2018, she stopped Eliquis and started low dose NSAIDs (Ibu 400am/200pm), and it is managing hr pain/stiffness. She has increase dher activity and feels very good. 10/15/18 ik PAF (paroxysmal atrial fibrillation) (Acute 06/09/18) Two episodes, 2 years ago .. onset with extreme physical/emot/psych stress [moving; packing; new job/career; primary breadwinner; dehydration; fatigue; caffeine] .. 2nd episode also assoc with physical/dehydr stressors.. Trying to coord med rvw w/cardiology as pt is very much wanting to d/c anti-coag (2' med limitations for her RA, which has led to dec activity & weight-gain). Borderline hypertension (Acute 06/09/18) Rotator cuff tear, left (Acute) Possible Dx ... especially with Hx shoulder injury/strain (while being pulled by arms in a play). - need XR, PT evaluation, but severity of pain w/o any trauma or repetitive motion injury makes a tear highly suspicious .. ordering MRI Medical History Hx of breast cancer Meralgia paresthetica, right lower limb Lesion of right sciatic nerve Prediabetes Cough Dizziness and giddiness Neck pain Non-scarring alopecia Acute upper respiratory infection Cellulitis Anxiety Obesity Hyperlipidemia Shingles Connective tissue disorder Afib SNHL (sensorineural hearing loss) ADD (attention deficit disorder) Hx Dx ADD Depression (06/09/18) Surgical History History of lumpectomy History of tonsillectomy and adenoidectomy History of carpal tunnel surgery Cholecystectomy Arthroscopy l knee Family History Self Adopted Has reconnected with biological parents and siblings enough to know that Alzheimers runs on maternal side. 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 during COVID Duration: 30-45 minutes/day Frequency: 1-2 times per week Seatbelt use: always Working smoke detector in home: Yes Fire extinguisher in home: Yes Carbon monox detector in home: Yes Firearms in home: No Do you feel safe at home: Yes Do you feel safe in your relationship?: Yes
[2024-06-06] MEDS: Acetaminophen 325 MG TAB 650 MG PO (08:55)
[2024-06-06] MEDS: Ibuprofen 600 MG TAB PO (10:23)
[2024-06-06] MEDS: Lidocaine 5% Patch 1 PATCH TP (10:23)
[2024-06-06 10:37] VITALS: BP 136/76; PULSE 81; RESP 20; O2SAT 98
== END 2024-06-06 10:37 | disposition home or self-care (01) ==
PROVIDERS: Emergency Provider Registered Nurse Emergency; PCP Physician Assistant Medical
DX: M25.552 Pain in left hip (principal); M53.3 Sacrococcygeal disorders, not elsewhere classified; M16.12 Unilateral primary osteoarthritis, left hip; X50.0XXA Overexertion from strenuous movement or load, initial encounter
CPT/HCPCS: 73552; 99284; 72170; 99283

== ENCOUNTER 2024-06-28 16:02 | Outpatient (REF) | payer MEDICARE, SELFPAY ==
[2024-06-28 15:17] LABS: Hemoglobin A1C 5.8 % (<5.7)
[2024-06-28 15:39] LABS: Anion Gap 6.5 mmol/L (3-11); BUN 16 mg/dL (7-18); CO2 30.5 mmol/L (21.0-32.0); CREATININE 1.1 mg/dL (0.55-1.02); Calculated LDL 90 mg/dL (<100); Chloride 107 mmol/L (98-107); Cholesterol 187 mg/dL (<200); Estimated GFR 51.75 (mL/min/1.73m2); Glucose 99 mg/dL (74-106); HDL Cholesterol 82 mg/dL (40-60); Potassium 4.3 mmol/L (3.5-5.1); Sodium 144 mmol/L (136-145); Triglyceride 78 mg/dL (<150)
== END 2024-06-28 16:03 | disposition home or self-care (01) ==
LOC: NCHCN 16:02
PROVIDERS: PCP Physician Assistant Medical; Visit Provider Physician Assistant Medical
DX: N18.9 Chronic kidney disease, unspecified (principal); R73.03 Prediabetes
CPT/HCPCS: 80048; 80061; 83036

== ENCOUNTER 2024-11-03 03:42 | Outpatient (CLI) | payer MEDICARE, SELFPAY ==
--- NOTE | 2024-11-03 | DI.RAD_ITS ---
Exam(s) XR HAND LT COMPLETE EXAM: XR HAND LT COMPLETE CLINICAL HISTORY: Pain in lt hand, M79.642. TECHNIQUE: 2D digital imaging was performed of the left hand. Three views were obtained. AP, later al and oblique views were obtained. COMPARISON: CR,XR XR HAND LT COMPLETE from 03/01/2021 FINDINGS: BONES: No acute fracture is present. No bony destructive lesion is seen. There is again seen an well corticated osseous density at the tip of the ulnar styloid process which is old. JOINTS: No dislocation present. The joint spaces are well maintained. No erosions are seen. There i s mild joint space narrowing seen in the interphalangeal joints with preservation of the MCP joints. No periarticular osteopenia is seen. SOFT TISSUE: Normal. IMPRESSION: Mild arthrosis in the interphalangeal joints of the hand. DATA REPOSITORY: RADIATION DOSE DELIVERED:
== END 2024-11-03 04:02 ==
PROVIDERS: PCP Physician Assistant Medical; Visit Provider Physician Assistant Medical
DX: M79.642 Pain in left hand (principal)
CPT/HCPCS: 73130

== ENCOUNTER 2024-12-21 15:41 | Outpatient (REF) | payer MEDICARE, SELFPAY ==
[2024-12-21 17:04] LABS: COMMENT (LAB VIEW ONLY) 77.48 mg/dL; Microalb ug/mg Crea 5.3 ug/mg Cr
== END 2024-12-21 15:42 | disposition home or self-care (01) ==
LOC: NCHCN 15:41
PROVIDERS: PCP Physician Assistant Medical; Visit Provider Physician Assistant Medical
DX: N18.9 Chronic kidney disease, unspecified (principal)
CPT/HCPCS: 82043; 82570

== ENCOUNTER → 2025-04-10 12:51 | Outpatient (BNVA) | payer MEDICARE, SELFPAY | PROVIDERS: PCP Physician Assistant Medical; Referring Provider Physician Assistant Medical; Visit Provider Student in an Organized Health Care Education/Training Program | DX: M70.52 Other bursitis of knee, left knee (principal); M65.342 Trigger finger, left ring finger; M65.311 Trigger thumb, right thumb | CPT/HCPCS: 99214 ==

== ENCOUNTER 2025-05-03 12:25 | Day surgery (SDC) | payer MEDICARE, SELFPAY ==
--- NOTE | 2025-05-03 12:16 | W.PM.DSUDISC ---
Date of service: 05/03/25 Discharge Plan Disposition Patient Disposition: Home Condition: Good Discharge Details Reason For Visit: LRF Trigger Release Attending Provider: Tc France Primary Care Provider: Blanca Busch Home Meds and New Rx's Prescriptions: New acetaminophen 500 mg tablet 1,000 mg PO TID Qty: 90 0RF ibuprofen 600 mg tablet 600 mg PO TID PRN (Reason: pain) Qty: 90 0RF Continued aspirin 81 mg tablet,delayed release (DR/EC) 81 mg PO DAILY magnesium 250 mg tablet 500 mg PO DAILY biotin 1,000 mcg tablet,chewable 1,000 mcg PO DAILY dextroamphetamine-amphetamine [Adderall] 5 mg tablet 5 mg PO BID PRN Rx Instructions: administer doses at least 4-6 hours apart, takes usually qd but allowed to take bid. docusate sodium [Stool Softener] 100 mg capsule 200 mg PO QHS PRN clobetasol 0.05 % solution 1 applic topical BID clotrimazole 1 % cream 1 applic topical DIRECTED minoxidil 2.5 mg tablet 2.5 mg PO DAILY diclofenac sodium [Voltaren Arthritis Pain] 1 % gel 2 g topical TID Rx Instructions: apply to single elbow, wrist or hand; for hand includes palm/fingers/back of hand letrozole 2.5 mg PO DAILY gabapentin 100 mg capsule 200 mg PO QHS PRN calcium carbonate-vitamin D3 [Calcium 500 + D] 1 EACH tablet 1 ea PO BID bupropion HCl 150 mg tablet sustained-release 12 hr 150 mg PO QAM Qty: 90 3RF Rx Instructions: Continue higher dose hydroxychloroquine 200 mg tablet 300 mg PO DAILY Qty: 180 Discontinued ibuprofen 200 mg tablet 200 mg PO TID-QID PRN Discharge Instructions Stand Alone Forms: Edilma Griffith Finger Release Activity:: Activity as Tolerated Remove Dressings/Wound Care:: 48 hours Shower/Bathe:: 48 hours Diet:: As Tolerated Discharge Orders Discharge Orders: Discharge Order (Routine); Ordered 05/03/25 Ordered By: Sumanth Ricci DS: Diagnosis Discharge Diagnosis (1) Trigger finger, left ring finger: Status: Acute
[2025-05-03 12:47] VITALS: BP 133/74; PULSE 78; RESP 16; TEMP 36.8; O2SAT 78
[2025-05-03] MEDS: Lidocaine 1% Multi-Dose W/EPI 1/100,000 50 ML VIAL (14:31)
[2025-05-03] MEDS: Sodium Bicarbonate 50 MEQ/50 ML VIAL (14:31)
[2025-05-03 14:47] VITALS: BP 141/72; PULSE 73; RESP 18; TEMP 36.7; O2SAT 99
--- NOTE | 2025-05-03 16:48 | ROE_ITS ---
Operative Note Operative Note PRE-OP DIAGNOSIS: Left Ring Finger Trigger Finger POST-OP DIAGNOSIS: same PROCEDURE: Trigger Finger Release - Left Ring Finger SURGEON: Tc France ANESTHESIA TYPE: Local By Surgeon Refer to Anesthesia Record ESTIMATED BLOOD LOSS: 0 PATHOLOGY: none sent COMPLICATIONS: None Patient was transported to: same day Patient's condition: stable Indications: I have seen Ruby in clinic for symptoms of a trigger finger. The catching, clicking, locking, and pain limited function. The diagnosis of trigger finger was evident. The symptoms had not responded to conservative measures. I disc ussed trigger finger release with the patient. I reviewed the risks of the procedure to include, but not limited to, bleeding, infection, pain, stiffness, incomplete release, damage to nerves or vessels, continued catching, recurrence. Despite these risks, the patient elected to proceed. Findings: There was a tightened A1 cata which was released. The flexor tendons were inspected and the patient was able to move the finger without any catching, clicking, or locking. Procedure Description: Ruby was greeted in the preoperative holding area where the correct side was identified and marked. The consent was reviewed with the patient and signed. All questions were answered. She was taken back to the operating room. The patient was placed into the supine position on the operating room table with the left arm on an arm board. All bony prominences were well padded. No prophylactic antibiotics were administered since this was a clean, elective hand surgical case. The left arm was then prepped with Chloraprep and draped in a standard fashion with stockinette and extremity drape. A timeout to confirm correct identity, side and site, procedure, allergies, anesthesia, and medical concerns was performed. The surgical site was marked as a longitudinal incision directly over the A1 p ulley of the involved digit. This was confirmed with palpation during finger flexion. This area, overlying the metacarpal head, was then anesthetized with 1% Lidocaine. The patient tolerated this well and once the anesthetic had setup, the procedure began. A longitudinal incision was made through skin only, approximately 1cm. The deep tissues were dissected bluntly. Once the A1 cata and flexor tendons were identified the soft tissue including neurovascular structures were retracted medially and laterally. There were no crossing structures over the A1 cata. The proximal edge of the cata was identified and the cata was incised with tenotomy scissors. There was a release of the tendons once this was fully released. The tendons were then removed from the wound and inspected. Excess synovium was resected. The tendons were then returned and the patient was asked to move the finger into deep flexion and back to extension. There was no recreation of the pre-operative symptoms. The hand was then once more inspected for any A0 cata or area of possible constriction. The wound was then irrigated and the skin was closed with a 4-0 Nylon. This was dressed with gauze and a Conform dressing. The patient tolerated the procedure well and was returned to the Same Day Surgery area in a stable condition suffering no known complication. Date of Procedure: 05/03/25
== END 2025-05-03 15:04 | disposition home or self-care (01) ==
LOC: SUR 12:25
PROVIDERS: PCP Physician Assistant Medical; Visit Provider Student in an Organized Health Care Education/Training Program
PROC: (CPT 26055; principal; 2025-05-03 15:15)
DX: M65.342 Trigger finger, left ring finger (principal)
CPT/HCPCS: 26055; J2004

== ENCOUNTER 2025-05-10 06:18 | Day surgery (SDC) | payer MEDICARE, SELFPAY ==
[2025-05-10 06:26] VITALS: BP 132/65; PULSE 79; RESP 18; TEMP 36.6; O2SAT 99
--- NOTE | 2025-05-10 07:14 | W.PM.DSUDISC ---
Date of service: 05/10/25 Discharge Plan Disposition Patient Disposition: Home Condition: Good Discharge Details Reason For Visit: R trigger thumb release Attending Provider: Tc France Primary Care Provider: Blanca Busch Home Meds and New Rx's Prescriptions: Continued aspirin 81 mg tablet,delayed release (DR/EC) 81 mg PO DAILY magnesium 250 mg tablet 500 mg PO DAILY biotin 1,000 mcg tablet,chewable 1,000 mcg PO DAILY dextroamphetamine-amphetamine [Adderall] 5 mg tablet 5 mg PO BID PRN Rx Instructions: administer doses at least 4-6 hours apart, takes usually qd but allowed to take bid. docusate sodium [Stool Softener] 100 mg capsule 200 mg PO QHS PRN clobetasol 0.05 % solution 1 applic topical .twice weekly clotrimazole 1 % cream 1 applic topical DIRECTED minoxidil 2.5 mg tablet 2.5 mg PO DAILY diclofenac sodium [Voltaren Arthritis Pain] 1 % gel 2 g topical TID Rx Instructions: apply to single elbow, wrist or hand; for hand includes palm/fingers/back of hand letrozole 2.5 mg PO DAILY gabapentin 100 mg capsule 200 mg PO QHS PRN calcium carbonate-vitamin D3 [Calcium 500 + D] 1 EACH tablet 1 ea PO BID bupropion HCl 150 mg tablet sustained-release 12 hr 150 mg PO QAM Qty: 90 3RF Rx Instructions: Continue higher dose hydroxychloroquine 200 mg tablet 300 mg PO DAILY Qty: 180 Patient Comments: pt. reports 400 mg daily acetaminophen 500 mg tablet 1,000 mg PO TID Qty: 90 0RF ibuprofen 600 mg tablet 600 mg PO TID PRN (Reason: pain) Qty: 90 0RF Discharge Instructions Stand Alone Forms: Edilma Griffith Finger Release Referrals: Tc France MD [ [facility] STAFF PHYSICIAN, Orthopaedic Surgical] Activity:: Activity as Tolerated Remove Dressings/Wound Care:: 48 hours Shower/Bathe:: 48 hours Diet:: As Tolerated Discharge Orders Discharge Orders: Discharge Order (Routine); Ordered 05/10/25 Ordered By: Sumanth Ricci DS: Diagnosis Discharge Diagnosis (1) Trigger thumb, right thumb: Status: Acute
[2025-05-10] MEDS: Lidocaine 1% Pres-Free W/EPI 1/200,000 10 ML VIAL (07:38)
[2025-05-10] MEDS: Sodium Bicarbonate 50 MEQ/50 ML VIAL (07:38)
[2025-05-10 07:50] VITALS: BP 128/59; PULSE 77; RESP 18; TEMP 36.4; O2SAT 96
--- NOTE | 2025-05-10 07:55 | W.PM.OP ---
Operative Note Operative Note PRE-OP DIAGNOSIS: Right Thumb Trigger Finger POST-OP DIAGNOSIS: same PROCEDURE: Trigger Finger Release - Right Thumb SURGEON: Tc France ANESTHESIA TYPE: Local By Surgeon Refer to Anesthesia Record ESTIMATED BLOOD LOSS: 0 PATHOLOGY: none sent COMPLICATIONS: None Patient was transported to: same day Patient's condition: stable Indications: I have seen Ruby in clinic for symptoms of a trigger finger. The catching, clicking, locking, and pain limited function. The diagnosis of trigger finger was evident. The symptoms had not responded to conservative measures. I discussed trigger finger release with the patient. I reviewed the risks of the procedure to include, but not limited to, bleeding, infection, pain, stiffness, incomplete release, damage to nerves or vessels, continued catching, recurrence. Despite these risks, the patient elected to proceed. Findings: There was a tightened A1 cata which was released. The flexor tendons were inspected and the patient was able to move the finger without any catching, clicking, or locking. Procedure Description: Ruby was greeted in the preoperative holding area where the correct side was identified and marked. The consent was reviewed with the patient and signed. All questions were answered. She was taken back to the operating room. The patient was placed into the supine position on the operating room table with the right arm on an arm board. All bony prominences were well padded. No prophylactic antibiotics were administered since this was a clean, elective hand surgical case. The right arm was then prepped with Chloraprep and draped in a standard fashion with stockinette and extremity drape. A timeout to confirm correct identity, side and site, procedure, allergies, anesthesia, and medical concerns was performed. The surgical site was marked as a longitudinal incision directly over the A1 cata of the involved digit. This was confirmed with palpation during finger flexion. This area, overlying the metacarpal head, was then anesthetized with 1% Lidocaine. The patient tolerated this well and once the anesthetic had setup, the procedure began. A longitudinal incision was made through skin only, approximately 1cm. The deep tissues were dissected bluntly. Once the A1 cata and flexor tendons were identified the soft tissue including neurovascular structures were retracted medially and laterally. There were no crossing structures over the A1 cata. The proximal edge of the cata was identified and the cata was incised with tenotomy scissors. There was a release of the tendons once this was fully released. The tendons were then removed from the wound and inspected. Excess synovium was resected. The tendons were then returned and the patient was asked to move the finger into deep flexion and back to extension. There was no recreation of the pre-operative symptoms. The hand was then once more inspected for any A0 cata or area of possible constriction. The wound was then irrigated and the skin was closed with a 4-0 Nylon. This was dressed with gauze and a Conform dressing. The patient tolerated the procedure well and was returned to the Same Day Surgery area in a stable condition suffering no known complication. Date of Procedure: 05/10/25
== END 2025-05-10 08:04 | disposition home or self-care (01) ==
PROVIDERS: PCP Physician Assistant Medical; Visit Provider Student in an Organized Health Care Education/Training Program
PROC: (CPT 26055; principal; 2025-05-10 07:30)
DX: M65.311 Trigger thumb, right thumb (principal)
CPT/HCPCS: 26055; J2004

== ENCOUNTER → 2025-05-18 14:48 | Outpatient (BNVA) | payer MEDICARE, SELFPAY | PROVIDERS: PCP Physician Assistant Medical; Referring Provider Physician Assistant Medical; Visit Provider Physician Assistant | DX: Z47.89 Encounter for other orthopedic aftercare (principal); M65.311 Trigger thumb, right thumb; M65.342 Trigger finger, left ring finger | CPT/HCPCS: 99024 ==

== ENCOUNTER 2025-07-04 15:21 | Outpatient (REF) | payer MEDICARE, SELFPAY ==
[2025-07-04 15:19] LABS: HCT 37.8 % (36.0-46.0); HGB 12.3 g/dL (11.2-15.7); MCH 30.7 pg (27.0-33.0); MCHC 32.5 % (32.0-36.0); MCV 94 fL (80-95); MPV 10.9 fL (8.0-11.0); Platelet Count 199 10^3/uL (130-400); RBC 4.01 10^6/uL (3.93-5.22); RDW 13.2 % (11.7-14.6); RDW-SD 45.9 fL; WBC 6.41 10^3/uL (4.4-10.8)
[2025-07-04 15:32] LABS: Anion Gap 7.1 mmol/L (3-11); BUN 21 mg/dL (7-18); CO2 29.9 mmol/L (21.0-32.0); Calcium 8.8 mg/dL (8.5-10.1); Chloride 106 mmol/L (98-107); Estimated GFR 51.43 (mL/min/1.73m2); Glucose 99 mg/dL (74-106); Potassium 4.0 mmol/L (3.5-5.1); Sodium 143 mmol/L (136-145)
[2025-07-04 15:41] LABS: Hemoglobin A1C 5.8 % (<5.7)
== END 2025-07-04 15:22 | disposition home or self-care (01) ==
LOC: NCHCN 15:21
PROVIDERS: PCP Physician Assistant Medical; Visit Provider Physician Assistant Medical
DX: R73.03 Prediabetes (principal)
CPT/HCPCS: 80048; 85027; 83036

== ENCOUNTER 2025-09-03 00:04 | Emergency (ER) | payer MEDICARE, SELFPAY ==
[2025-09-03 00:06] VITALS: BP 144/62; PULSE 76; RESP 16; TEMP 36.4; O2SAT 96
--- NOTE | 2025-09-03 00:30 | DI.RAD_ITS ---
Exam(s) XR KNEE LT 3V AP,LAT,ARELI EXAM: XR KNEE LT 3V AP,LAT,ARELI CLINICAL HISTORY: left medial knee pain after old fall. TECHNIQUE: 2D digital imaging was performed of the left knee. Three images were obtained. AP, lateral and PA tunnel views were obtained. COMPARISON: CR LEFT KNEE LIMITED 1 OR 2 VIEWS from 05/07/2016 FINDINGS: BONES: No acute fracture is present. No bony destructive lesion is seen. JOINTS: There are moderate degenerative changes seen in the left knee characterized by joint space narrowing and osteophytes. The findings are most marked in the medial femoral tibial and patellofemoral joint. No joint effusion is seen. No loose body. SOFT TISSUE: Normal. IMPRESSION: 1. There is no acute fracture or dislocation. 2. The preliminary [facility] report was reviewed. DATA REPOSITORY: RADIATION DOSE DELIVERED:
[2025-09-03] MEDS: Lidocaine 5% Patch 1 PATCH TP ×2 (01:16→03:31)
[2025-09-03] MEDS: Ketorolac 30 MG/ML VIAL IM (01:17)
--- NOTE | 2025-09-03 01:32 | W.ED.GENAD ---
Discharge Plan Disposition Patient Disposition: Home Condition: Good Discharge Details Clinical Impression: Injury of left knee, Acute pain of left knee Primary Care Provider: Blanca Busch ED Provider: Oniel Ratliff Home Meds and New Rx's Prescriptions: New lidocaine [Lidoderm] 5 % adhesive patch,medicated 1 patch Topical Q24H Qty: 15 0RF No Action aspirin 81 mg tablet,delayed release (DR/EC) 81 mg PO DAILY magnesium 250 mg tablet 500 mg PO DAILY biotin 1,000 mcg tablet,chewable 1,000 mcg PO DAILY dextroamphetamine-amphetamine [Adderall] 5 mg tablet 5 mg PO BID PRN Rx Instructions: administer doses at least 4-6 hours apart, takes usually qd but allowed to take bid. docusate sodium [Stool Softener] 100 mg capsule 200 mg PO QHS PRN clobetasol 0.05 % solution 1 applic topical .twice weekly clotrimazole 1 % cream 1 applic topical DIRECTED minoxidil 2.5 mg tablet 2.5 mg PO DAILY diclofenac sodium [Voltaren Arthritis Pain] 1 % gel 2 g topical TID Rx Instructions: apply to single elbow, wrist or hand; for hand includes palm/fingers/back of hand letrozole 2.5 mg PO DAILY gabapentin 100 mg capsule 200 mg PO QHS PRN calcium carbonate-vitamin D3 [Calcium 500 + D] 1 EACH tablet 1 ea PO BID bupropion HCl 150 mg tablet sustained-release 12 hr 150 mg PO QAM Qty: 90 3RF Rx Instructions: Continue higher dose hydroxychloroquine 200 mg tablet 300 mg PO DAILY Qty: 180 Patient Comments: pt. reports 400 mg daily acetaminophen 500 mg tablet 1,000 mg PO TID Qty: 90 0RF ibuprofen 600 mg tablet 600 mg PO TID PRN (Reason: pain) Qty: 90 0RF Discharge Instructions Additional Instructions: At this time you do have notable arthritis in your knee, however there is no evidence of fracture or other significant abnormality. Please apply the Voltaren gel 3-4 times per day, use the Lidoderm patches as prescribed, and continue to take Tylenol. Please follow-up closely with the medical front desk specialist Dr. France at your scheduled appointment this week. After which point they may decide to get additional imaging of your knee. Please use the crutches to help reduce the weight on your knee as you ambulate. If you notice any worsening of your symptoms, or any new symptoms such as vomiting, diarrhea, fever, chills, shortness of breath, chest pain, numbness, weakness, or fainting , please return immediately to the emergency department for reevaluation. Please follow up with your primary care provider as soon as possible for reassessment and reevaluation. As always, it was a pleasure participating in your medical care today. Stand Alone Forms: Portal Information Referrals: Blanca Busch PA [Primary Care Provider, Medicine] [facility] General Date/Time Provider Initiated Documentation: 09/03/25 00:10. HPI Narrative: 79-year-old female presents today for evaluation of left knee pain. Patient states that about 2-1/2 weeks ago she fell on her left elicited mild achiness at that time, however over the last few weeks it is worsened with time. It is worsened with activity and weightbearing. This evening she went up and down the stairs and after this activity she had extreme pain the medial aspect of her left knee which kept her from weightbearing at all. She denies any other new falls. She denies any numbness or tingling. She is scheduled to follow-up with orthopedics in 48 hours from now at a scheduled appointment with Dr. France. She did take some Tylenol prior to coming in and states that this did not touch the pain. She denies any previous surgery on the left knee aside for arthroscopy in the distant past. She denies any other complaints at this time. Related Data Home Medications Medication Instructions Recorded Confirmed calcium 500 mg (as 1 ea PO BID 06/23/18 09/03/25 carbonate)-vitamin D3 10 mcg (400 unit) tablet (Calcium 500 + D) aspirin 81 mg tablet,delayed 81 mg PO DAILY 11/26/18 09/03/25 release magnesium 250 mg tablet 500 mg PO DAILY 06/01/19 09/03/25 docusate sodium 100 mg capsule 200 mg PO QHS PRN 08/24/20 09/03/25 (Stool Softener) bupropion HCl 150 mg tablet,12 hr 150 mg PO QAM #90 tabs 11/29/20 09/03/25 sustained-release biotin 1,000 mcg chewable tablet 1,000 mcg PO DAILY 12/20/20 09/03/25 dextroamphetamine-amphetamine 5 mg 5 mg PO BID PRN 02/19/23 09/03/25 tablet (Adderall) hydroxychloroquine 200 mg tablet 300 mg PO DAILY #180 tabs 02/19/23 09/03/25 clobetasol 0.05 % scalp solution 1 applic topical .twice weekly 10/06/23 09/03/25 clotrimazole 1 % topical cream 1 applic topical DIRECTED 10/06/23 09/03/25 diclofenac sodium 1 % topical gel 2 g topical TID 10/06/23 09/03/25 (Voltaren Arthritis Pain) minoxidil 2.5 mg tablet 2.5 mg PO DAILY 10/06/23 09/03/25 letrozole 2.5 mg PO DAILY 11/16/23 09/03/25 gabapentin 100 mg capsule 200 mg PO QHS PRN 04/10/25 09/03/25 acetaminophen 500 mg tablet 1,000 mg (2 x 500 mg) PO TID #90 05/03/25 09/03/25 tabs ibuprofen 600 mg tablet 600 mg PO TID PRN pain #90 tabs 05/03/25 09/03/25 lidocaine 5 % topical patch 1 patch topical Q24H #15 ea 09/03/25 (Lidoderm) Previous Rx's Medication Instructions Recorded bupropion HCl 150 mg tablet,12 hr 150 mg PO QAM #90 tabs 11/29/20 sustained-release acetaminophen 500 mg tablet 1,000 mg (2 x 500 mg) PO TID #90 05/03/25 tabs ibuprofen 600 mg tablet 600 mg PO TID PRN pain #90 tabs 05/03/25 lidocaine 5 % topical patch 1 patch topical Q24H #15 ea 09/03/25 (Lidoderm) Allergies Allergy/AdvReac Type Severity Reaction Status Date / Time Sulfa (Sulfonamide Allergy Severe severe Verified 09/03/25 00:32 Antibiotics) hives iodine Allergy Hives Unverified 09/03/25 00:32 General Stated Complaint: Orthopedic BRADY: 3 Exam Narrative Exam Narrative: 1.Const: Well-nourished, Well-developed, appearing stated age 2.Eyes: PERRL, no conjunctival injection, and symmetrical lids. 3.ENT: Atraumatic external nose and ears. Moist MM. Neck: Symmetric, trachea midline, No thyromegaly. 4.CVS: +S1/S2, Peripheral pulses 2+ and equal in all extremities. Brisk capillary refill in all extremities. 5.RESP: Unlabored respiratory effort. Clear to auscultation bilaterally. No wheezes rales or rhonchi 6.GI: Soft, Nontender/Nondistended, No hepatosplenomegaly. No guarding or rebound. 7.MSK: Left knee demonstrates no patellar tenderness, no fibular tenderness, minimal tenderness on deep palpation of the tibial plateau. No calf tenderness or posterior popliteal tenderness. Patient does have notable pain on the medial aspect of the knee with both varus and valgus stressing, notable pain in the medial aspect with Sylvester's test. And pain with flexion and extension as well. No gross joint laxity though. No redness or warmth. No significant edema. 8.Skin: Warm, Dry. No rashes or lesions. 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 Sensation grossly intact, no focal neurologic deficits. 10.Psych: (AAO) x3. Appropriate mood and affect Course Vital Signs Vital signs: Vital Signs Temperature 36.4 C L 09/03/25 00:06 Pulse 76 09/03/25 00:06 Respiratory Rate 16 09/03/25 00:06 Blood Pressure 144/62 H 09/03/25 00:06 Pulse Oximetry 96 09/03/25 00:06 Temperature 36.4 C L 09/03/25 00:06 Temperature Source Temporal Artery Scan 09/03/25 00:06 Pulse 76 09/03/25 00:06 Respiratory Rate 16 09/03/25 00:06 Blood Pressure 144/62 H 09/03/25 00:06 Blood Pressure Position Sitting 09/03/25 00:06 Pulse Oximetry 96 09/03/25 00:06 Oxygen Delivery Method Room Air 09/03/25 00:06 Oxygen Flow Rate 0 09/03/25 00:06 Pain Level 10 09/03/25 00:12 Medical Decision Making 79-year-old female presents today for evaluation of left knee pain. Patient states that about 2-1/2 weeks ago she fell on her left elicited mild achiness at that time, however over the last few weeks it is worsened with time. It is worsened with activity and weightbearing. This evening she went up and down the stairs and after this activity she had extreme pain the medial aspect of her left knee which kept her from weightbearing at all. She denies any other new falls. She denies any numbness or tingling. She is scheduled to follow-up with orthopedics in 48 hours from now at a scheduled appointment with Dr. France. She did take some Tylenol prior to coming in and states that this did not touch the pain. She denies any previous surgery on the left knee aside for arthroscopy in the distant past. She denies any other complaints at this time. Left knee demonstrates no patellar tenderness, no fibular tenderness, minimal tenderness on deep palpation of the tibial plateau. No calf tenderness or posterior popliteal tenderness. Patient does have notable pain on the medial aspect of the knee with both varus and valgus stressing, notable pain in the medial aspect with Sylvester's test. And pain with flexion and extension as well. No gross joint laxity though. No redness or warmth. No significant edema. Concern for meniscal injury, arthritis, or less likely fracture. Will get x-ray, apply Lidoderm patch, give Toradol, monitor closely and reassess. 4 AM X-ray negative for acute process, patient feels much better after NSAID therapy and Lidoderm patch. Will recommend crutches, weightbearing as tolerated and close follow-up with her scheduled orthopedic appointment. Suspect arthritis and potential ligamentous injury including potential meniscal injury as cause of symptomatology at this time. Discussed red flags for which to return. I have extensively reviewed the treatment plan and discharge instructions with the patient and their family. I have addressed all patient concerns at this time. The patient and family was made aware of what symptoms to monitor for that would warrant a return to the emergency department. Discussed the plan with the patient and family, they demonstrate verbal understanding and agreement with our assessment and plan at this time. The documentation in this chart was dictated using [employer] dictation software. Please excuse any dictation errors. FINDINGS: Bones/joints: Knee osteoarthritis. No fracture or dislocation. No suspicious osseous lesion. No joint effusion. Soft tissues: Normal. IMPRESSION: 1. Knee osteoarthritis. 2. No fracture or dislocation. Thank you for allowing us to participate in the care of your patient. Dictated and Authenticated by: Adam Barclay MD 09/03/2025 2:43 AM Eastern Time ([place] & [place]) COUNTS INCLUDE 234 BEDS AT THE [facility] All Active Problems (Updated 09/03/25 @ 02:53 by Oniel Ratliff, DO) Acute pain of left knee (Acute) Injury of left knee (Acute) Trigger thumb, right thumb (Acute) s/p Right trigger thumb release 05/10/25 Trigger finger, left ring finger (Acute) s/p Left ring trigger finger release 05/03/25 Pes anserinus bursitis of left knee (Acute) Presbylarynges (Acute) Hoarseness (Acute) Foreign body in ear (Acute) Metatarsalgia of both feet (Acute) Sensorineural hearing loss (Acute) Encounter for removal of sutures (Acute) Laceration of hand, left (Acute) Visit for suture removal (Acute) Laceration of right hand (Acute) Mouth sores (Acute) Presumed HSV (fever blisters .. resolving with Valacyclovir) Undifferentiated connective tissue disease (Acute) [facility] Adopted person (Acute) with recent discovery of blood relatives and extended family ([place]?) Recurrent depressive disorder, currently in remission (Acute) Bupropion helping depression remit. ADHD, predominantly inattentive type (Acute) history of inattention through child and adulthood without significant hyperactivity or impulsivity Acute vestibular neuritis (Acute) Working Dx .. steroid spray, meclizine, antihist. Lorzpm. Pt does not tolerate steroids well. Tinnitus of both ears (Chronic 04/05/20) Sensorineural hearing loss (SNHL) of both ears (Chronic 04/05/20) Dr. Cortes Hallux rigidus, left foot (Acute) Villar's neuroma of left foot (Acute) Viral syndrome (Acute) Foot deformity, bilateral (Acute) B/L foot change, left toes seem to splay .. Proximal digit swelling and sensation of having something in shoe .. Note: left insert (possible change in gait?) Tick bite (Acute 03/13/17) Medicare annual wellness visit, subsequent (Acute) Telangiectasia (Acute) 08/09/18 right nasal sidewall 5mm-[facility] Tendinitis of left rotator cuff (Acute) Carpal tunnel syndrome of left wrist (Acute 01/15/15) PMR (polymyalgia rheumatica) (Acute 06/09/18) [place] Plaquenil, Ibuprofen -- now on hold 2' Eliquis and she is stiff and in pain. No to steroids unless emergency. As od Aug 2018, she stopped Eliquis and started low dose NSAIDs (Ibu 400am/200pm), and it is managing hr pain/stiffness. She has increase dher activity and feels very good. 10/15/18 ik PAF (paroxysmal atrial fibrillation) (Acute 06/09/18) Two episodes, 2 years ago .. onset with extreme physical/emot/psych stress [moving; packing; new job/career; primary breadwinner; dehydration; fatigue; caffeine] .. 2nd episode also assoc with physical/dehydr stressors.. Trying to coord med rvw w/cardiology as pt is very much wanting to d/c anti-coag (2' med limitations for her RA, which has led to dec activity & weight-gain). Borderline hypertension (Acute 06/09/18) Rotator cuff tear, left (Acute) Possible Dx ... especially with Hx shoulder injury/strain (while being pulled by arms in a play). - need XR, PT evaluation, but severity of pain w/o any trauma or repetitive motion injury makes a tear highly suspicious .. ordering MRI Medical History (Updated 09/03/25 @ 02:53 by Oniel Ratliff DO) Hx of breast cancer Meralgia paresthetica, right lower limb Lesion of right sciatic nerve Prediabetes Cough Dizziness and giddiness Neck pain Non-scarring alopecia Acute upper respiratory infection Cellulitis Anxiety Obesity Hyperlipidemia Shingles Connective tissue disorder Afib SNHL (sensorineural hearing loss) ADD (attention deficit disorder) Hx Dx ADD Depression (06/09/18) Surgical History (Updated 05/18/25 @ 15:00 by HERMELINDO Barr) History of lumpectomy l breast History of tonsillectomy and adenoidectomy History of carpal tunnel surgery Cholecystectomy Arthroscopy l knee 1979' Family History Self Adopted Has reconnected with biological parents and siblings enough to know that Alzheimers runs on maternal side. 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 during COVID Duration: 30-45 minutes/day Frequency: 1-2 times per week Seatbelt use: always Working smoke detector in home: Yes Fire extinguisher in home: Yes Carbon monox detector in home: Yes Firearms in home: No Do you feel safe at home: Yes Do you feel safe in your relationship?: Yes
--- NOTE | 2025-09-03 02:43 | DI.[facility]_ITS ---
PROCEDURE INFORMATION: Exam: XR Left Knee Exam date and time: 09/03/2025 1:24 AM Age: 79 years old Clinical indication: Other: Left medial knee pain after old fall; Additional info: Fall 15 days ago TECHNIQUE: Imaging protocol: Radiologic exam of the left knee. Views: 3 views. COMPARISON: CR XR FEMUR LT 06/06/2024 9:11 AM FINDINGS: Bones/joints: Knee osteoarthritis. No fracture or dislocation. No suspicious osseous lesion. No joint effusion. Soft tissues: Normal. IMPRESSION: 1. Knee osteoarthritis. 2. No fracture or dislocation. Dictated and Authenticated by: Adam Barclay MD. Orderin Evy Engle MD
--- NOTE | 2025-09-03 09:41 | NUR.NOTE ---
Access chart to determine the PCP to fax a prior authorization for lidocaine 5% patches. Nursing Note:
--- NOTE | 2025-09-04 12:12 | NUR.NOTE ---
Faxed med auth to [facility]
== END 2025-09-03 03:15 | disposition home or self-care (01) ==
PROVIDERS: Emergency Provider Student in an Organized Health Care Education/Training Program; PCP Physician Assistant Medical
DX: M25.562 Pain in left knee (principal); M17.12 Unilateral primary osteoarthritis, left knee; W19.XXXA Unspecified fall, initial encounter
CPT/HCPCS: 99283; 99284; 96372; 73562; J1885

== ENCOUNTER → 2025-09-04 09:53 | Outpatient (BNVA) | payer MEDICARE, SELFPAY | PROVIDERS: PCP Physician Assistant Medical; Referring Provider Physician Assistant Medical; Visit Provider Student in an Organized Health Care Education/Training Program | DX: M17.12 Unilateral primary osteoarthritis, left knee (principal) | CPT/HCPCS: 99213; 20610; J1010 ==